=== PATIENT | male | born 1945 | race Caucasian/White ===

== ENCOUNTER 2017-07-25 04:56 | Inpatient (IN) ==
[2017-07-25] MEDS ORDERED: Naloxone 0.4 MG/ML INJ IVP PRN (11:13)
[2017-07-25] MEDS ORDERED: 0.9 % Sodium Chloride 1,000 ML IVC SCH (11:15)
[2017-07-25] MEDS ORDERED: Ondansetron 4 MG/2 ML VIAL IVP PRN (11:20)
--- NOTE | 2017-07-25 11:32 | Internal Med History&Physical ---
Date of Encounter: 07/25/17 Time of Encounter: 11:26 Internal Medicine - H&P: HPI Chief complaint: Abdominal pain Admitted From: Intrahospital Transfer Plans for Post Hospital Care: Home History of present illness: Mr. Barton is a 72 year old male with history of COPD, remote a smoker for 40 years one half pack per day but quit in 2003 was transferred from [facility] for further evaluation of small bowel obstruction . As per patient he is started right lower abdomen pain afternoon yesterday after mowing the grass and over time that progressed to left lower quadrant and then upper abdomen to the chest last evening around 5:00 and patient thought it will go away but eventually it got worse rating 10 x 10 associated with nausea therefore decided to go to [place] [facility]. In the ER CT abdomen done with finding of mechanical small bowel obstruction with mesenteric/intestinal hernia. EKG was also done with [address] segment depression in inferior lead in V4 to 6 but negative troponin. Therefore [place] [facility] physician talked to on-call surgeon Dr. Stevens at [facility] who accepted the patient but advised to get admitted under hospitalist service. During my interview patient rating his abdominal pain 5 x 5 associated with nausea with no vomiting, no flatus but lots of burping. Patient had 2 episodes of diarrhea day before yesterday but since then no bowel movement. Patient denies fever, chills, headache, dizziness, chest pain, shortness of breath, cough, palpitation. Slight Decreased urine output noticed. Past Med Surg Social Fam HX - Past Medical History Medical history: COPD Psychiatric history: no psych history - Past Surgical History Surgical History: no surgical history - Social History Smoking Status: Former smoker Smokeless Tobacco Status: No Alcohol use: none Drug use: none - Family History Mother Living Status: Age at : 69 Cause of : BONE CANCER Hx Family Cardiac Disorders: No Hx Family Respiratory Disorders: No Hx Family Cancer: Yes (MOTHER WITH ABDOMINAL MASS CANCEROUS, METS TO BONE) Hx Family GI Disorders: Yes Hx Family Endocrine Disorder: No Hx Family Medical Disorders: Yes Internal Medicine - H&P: Meds Fluticasone/Salmeterol [Advair 500-50 Diskus] 1 each IH Q12H 02/23/17 [History] Saw [place] Fruit [Saw [place]] 450 mg PO DAILY 02/23/17 [History] Albuterol Sulfate [Albuterol Inhaler] 2 puff IH Q6HR PRN 07/25/17 [History] 3 Allergy/AdvReac Type Severity Reaction Status Date / Time No Known Allergies Allergy Verified 07/25/17 00:26 All Systems PM: except as documented above in the HPI. - Constitutional Vitals: Temp Pulse Resp BP Pulse Ox 98.6 F 74 16 129/68 95 07/25/17 11:16 07/25/17 11:16 07/25/17 11:16 07/25/17 11:16 07/25/17 11:16 Exam: General appearance: Mild distress due to pain,, A&O X 3, obese Head exam: Atraumatic Eye exam: EOMI, PERRLA ENT exam: Dry oral mucosa Neck nontender, supple Respiratory exam: Clear to auscultation bilaterally Cardiovascular exam: Regular rate and rhythm, no systolic murmur Abdominal exam: Soft, tender lower abdomen, mild distended, no bowel sounds Extremities exam: No calf tenderness, no pedal edema Present: Skin-no rash, warm, dry, intact Neurological exam: Alert, awake, oriented 3, CN II-XII intact, no focal deficits. No facial droop. Normal speech. Normal gait. - Assessment and plan (1) Small bowel obstruction Current Visit: No Status: Acute Assessment and plan: Mechanical bowel obstruction with mesenteric versus intestinal hernia on CT scan. No bowel sounds present. Lactate acid normal done in outside facility. Conservative management keep patient nothing by mouth, IV fluid normal saline 125 mL per hour, strict I&O's, antiemetic, IV pain medicine fentanyl as morphine and Dilaudid running short in supply. The neurosurgeon Dr. Stevens already accepted the patient and I informed him again. NG tube is planned. Patient has 2 failed attempt of NG tube placement at [place] [facility] and patient had nosebleed. CBC, CMP, lipase, lactate amylase, urine analysis, stool occult ordered. Will review the imaging of CT scan done outside the facility. (2) Chest pain Current Visit: Yes Status: Resolved Assessment and plan: Patient had atypical chest pain started after abdominal pain. It is less likely cardiac but Slight ST depression in inferior leads on EKG though troponin negative no active chest pain at this time. Patient also had lots of burping and acid reflux and he thought contributing chest pain. Will keep patient in telemetry, serial cardiac enzyme monitoring repeat EKG for now. If any concern about cardiac related etiology then will start baby aspirin if okay with surgeon otherwise avoid any blood thinner as there could be possibility of surgery due to present complaint. Fasting lipid profile, nitroglycerin, oxygen when necessary ordered Qualifiers: Chest pain type: unspecified Qualified Code(s): R07.9 - Chest pain, unspecified (3) COPD (chronic obstructive pulmonary disease) Current Visit: Yes Status: Chronic Assessment and plan: Patient is not on acute exacerbation. Is stable. Continue home medicine. Qualifiers: COPD type: unspecified COPD Qualified Code(s): J44.9 - Chronic obstructive pulmonary disease, unspecified (4) DVT prophylaxis Current Visit: Yes Status: Acute Assessment and plan: SCDs. - Time Spent With Patient Total time spent is greater than 50% in coordination of care (as documented) at patient's floor/unit and/or counseling patient: 25 - 35 minutes
[2017-07-25] MEDS ORDERED: *HR* FentaNYL (PF) 100 MCG/2 ML VIAL IVP PRN (11:33)
[2017-07-25 11:51] LABS: Basophils % 0.2 %; Hematocrit 45.4 % (37.5-50.1); Hemoglobin 15.7 g/dL (12.9-16.9); Immature Granulocytes % 0.3 % (0-4); Lymphocytes # 1.2 K/mcL (0.6-4.6); Lymphocytes % 8.1 %; Mean Corpuscular HGB Conc 34.6 g/dL (31.6-35.5); Mean Corpuscular Hemoglobin 31.7 pg (28.0-33.3); Mean Corpuscular Volume 91.7 fL (83.0-100.0); Mean Platelet Volume 8.8 fL (9.4-12.4); Monocytes # 0.7 K/mcL (0.0-1.3); Monocytes % 4.8 %; Neutrophils # 12.6 K/mcL (1.6-8.9); Platelet Count 254 K/mcL (140-400); Red Blood Count 4.95 M/mcL (4.19-5.50); Red Cell Distribution Width 13.2 % (11.5-14.5); Segmented Neutrophils % 86.6 %
[2017-07-25 12:00] LABS: INR 1.1
[2017-07-25 12:02] LABS: Activated Partial Thrombo Time 28.2 Seconds (26.0-36.0)
[2017-07-25 12:13] LABS: Alanine Aminotransferase 15 Units/L (7-52); Albumin 4.3 g/dL (3.5-5.7); Albumin/Globulin Ratio 1.7 (1.1-2.2); Alkaline Phosphatase 73 Units/L (34-104); Amylase 37 Units/L (29-103); Aspartate Amino Transferase 14 Units/L (13-39); BUN/Creatinine Ratio 16 (6-26); Bilirubin,Total 0.9 mg/dL (0.3-1.0); Blood Urea Nitrogen 13 mg/dL (8-23); Calcium 9.7 mg/dL (8.6-10.3); Carbon Dioxide 29 mEq/L (23-29); Chloride 101 mEq/L (98-107); Globulin 2.5 g/dL (2.4-3.5); Glucose 136 mg/dL (70-105); Lipase 8 Units/L (11-82); Osmolality,Calculated 286 (280-300); Sodium 137 mEq/L (136-145); Total Protein 6.8 g/dL (6.4-8.9); eGFR For African Americans > 60 (> 60); eGFR For Non-African Americans > 60 (> 60)
[2017-07-25] MEDS ORDERED: Lidocaine Jelly 6ml 1 APPL/6 ML JEL.PF.APP MM ONE (12:58)
[2017-07-25] MEDS: 0.9 % Sodium Chloride 1,000 ML IVC SCH ×2 (13:09→21:07)
[2017-07-25] MEDS: Pantoprazole 40 MG VIAL IVP SCH (13:10)
--- NOTE | 2017-07-25 13:58 | General Surgery Consult Note ---
<Ruel Gray - Last Filed: 07/25/17 13:49> Date of Encounter: 07/25/17 Time of Encounter: 13:00 Assessment and Plan (1) Small bowel obstruction Current Visit: Yes Status: Acute DDx: Mechanical SBO (internal hernia vs. mass effect) vs. Ileus. PUD also in consideration though less likely cause of acute state. Pancreatitis unlikely given negative enzymes. Exam relatively benign given suspicion of small bowel obstruction. Did have CT done at [place] [facility] which was interpreted as "mechanical small bowel obstruction with transition point in the LUQ". WBC ct 14.6k predominately neutrophils. Coags wnl. BMP unremarkable. LFTs normal. Lactate 1.0. Troponin <0.03. Amylase/Lipase are not elevated. NG tube was placed liberating about 800 mL of gastric contents within a few minutes. Patient cited significant relief within minutes of placement of NG tube. Did have colonoscopy in 02/2017 with two cecal polyps removed; path report states "tubular adenoma". Plan: - NPO with G.I. decompression and bowel rest - placed NG tube with low-pressure wall suction - IVF are hydration in the meantime - patient may have sparing ice chips in the meantime - continue IV PPI, PRN IV antiemetic, and PRN pain management - consideration of SB follow through vs. bowel prep in next 2-3 days - serial abdominal exams (2) COPD (chronic obstructive pulmonary disease) Current Visit: Yes Status: Chronic Not dependent on O2 at home. No symptoms/signs of acute exacerbation. Mgmt per hospitalist team. Qualifiers: COPD type: unspecified COPD Qualified Code(s): J44.9 - Chronic obstructive pulmonary disease, unspecified (3) Chest pain Current Visit: Yes Status: Resolved management per hospitalist team; initial troponin negative. Qualifiers: Chest pain type: unspecified Qualified Code(s): R07.9 - Chest pain, unspecified (4) DVT prophylaxis Current Visit: Yes Status: Acute Mechanical History of Present Illness Consult date: 07/24/17 (Dr. Marla Stevens) Reason for consult: abdominal pain Requesting physician: Jessica Guzman History of present illness: This is a 72-year-old male with history of COPD (not O2 dependent), remote history of smoking 40 pack years (quit in 2003), and undifferentiated chronic abdominal pain "for 30 years". Patient states usually has general vague right lower quadrant pain that he has not had any specific workup for. Over the last 24 to 48 hours, patient states pain has become more severe and has changed to a more anterior position. Pain is constant without any further radiation or migration, feels sharp/bloated, and has no specific provoking factors. Pt states was relieved with pain medication given in [place] [facility]. Patient also states he has had nausea without any vomiting, denies any flatus, but does note significant amount of belching. Did have brief episode of diarrhea prior to initial presentation to [place] emergency department. No BMs since. Patient denies any fevers, chills, sweats, lightheadedness, headaches, chest pain, palpitations, shortness of breath, cough, dysuria, or hematuria. Past Med Surg Social Fam HX - Past Medical History Attestation: Yes The following information was validated with the patient. Source: patient Medical history: COPD Psychiatric history: no psych history - Past Surgical History Surgical History: no surgical history - Social History Smoking Status: Former smoker (40 pack your history quit in 2003) Smokeless Tobacco Status: No Alcohol use: none Drug use: none - Family History Mother Living Status: Age at : 69 Cause of : BONE CANCER Hx Family Cardiac Disorders: No Hx Family Respiratory Disorders: No Hx Family Cancer: Yes (MOTHER WITH ABDOMINAL MASS CANCEROUS, METS TO BONE) Hx Family GI Disorders: Yes Hx Family Endocrine Disorder: No Hx Family Medical Disorders: Yes Medications and Allergies Fluticasone/Salmeterol [Advair 500-50 Diskus] 1 puff IH Q12H 02/23/17 [History] Saw [place] Fruit [Saw [place]] 450 mg PO DAILY 02/23/17 [History] Albuterol Sulfate [Albuterol Inhaler] 2 puff IH Q6HR PRN 07/25/17 [History] Aspirin [Lo-Dose Aspirin EC] 81 mg PO DAILY 07/25/17 [History] 3 Allergy/AdvReac Type Severity Reaction Status Date / Time No Known Allergies Allergy Verified 07/25/17 00:26 Review of Systems All systems PM: reviewed and no additional remarkable complaints except as stated All systems PM: The remainder of the systems were reviewed and are negative General Surgery Exam Initial Vital Signs Temp Pulse Resp BP Pulse Ox 98.2 F 92 16 145/82 93 07/25/17 08:16 07/25/17 08:16 07/25/17 08:16 07/25/17 08:16 07/25/17 08:16 VITAL SIGNS: Reviewed. See [facility] GENERAL: well-nourished gentleman appears comfortably supine in bed, conversational and cooperative, AOX3 HEENT: Normocephalic, PER, EOMi, oropharynx pink/moist, NG tube in place in right nare, no JVD noted CV: b/l rad pulses 2+, RRR, no murmurs or gallops, no JVD RESPIRATORY: CTAB without wheezes, rales, or rhonchi ABD: soft, tender to palpation over RUQ/RLQ, guarding to same quadrants, no distention/rigidity, no peritoneal signs EXTREMITY: grossly normal motor function, no pedal edema NEUROLOGIC EXAM: AOx3, obeys commands, no speech deficits PSYCHIATRIC: normal mood and affect SKIN: no gross lesions, rashes, or skin changes Exam Initial Vital Signs Temp Pulse Resp BP Pulse Ox 98.2 F 92 16 145/82 93 07/25/17 08:16 07/25/17 08:16 07/25/17 08:16 07/25/17 08:16 07/25/17 08:16 Results - Labs 07/25/17 11:39 07/25/17 11:39 Abnormal lab results WBC 14.5 K/mcL (4.3-11.1) H 07/25/17 11:39 MPV 8.8 fL (9.4-12.4) L 07/25/17 11:39 Neutrophils # 12.6 K/mcL (1.6-8.9) H 07/25/17 11:39 Glucose 136 mg/dL (70-105) H 07/25/17 11:39 Lipase 8 Units/L (11-82) L 07/25/17 11:39 Diabetes panel 07/25/17 Range/Units 11:39 Sodium 137 (136-145) mEq/L Potassium 4.0 (3.5-5.1) mEq/L Chloride 101 (98-107) mEq/L Carbon Dioxide 29 (23-29) mEq/L BUN 13 (8-23) mg/dL Creatinine 0.80 (0.70-1.30) mg/dL Glucose 136 H (70-105) mg/dL Calcium 9.7 (8.6-10.3) mg/dL AST 14 (13-39) Units/L ALT 15 (7-52) Units/L Alkaline Phosphatase 73 (34-104) Units/L Albumin 4.3 (3.5-5.7) g/dL Calcium panel 07/25/17 Range/Units 11:39 Calcium 9.7 (8.6-10.3) mg/dL Albumin 4.3 (3.5-5.7) g/dL Pituitary panel 07/25/17 Range/Units 11:39 Sodium 137 (136-145) mEq/L Potassium 4.0 (3.5-5.1) mEq/L Chloride 101 (98-107) mEq/L Carbon Dioxide 29 (23-29) mEq/L BUN 13 (8-23) mg/dL Creatinine 0.80 (0.70-1.30) mg/dL Glucose 136 H (70-105) mg/dL Calcium 9.7 (8.6-10.3) mg/dL Adrenal panel 07/25/17 Range/Units 11:39 Sodium 137 (136-145) mEq/L Potassium 4.0 (3.5-5.1) mEq/L Chloride 101 (98-107) mEq/L Carbon Dioxide 29 (23-29) mEq/L BUN 13 (8-23) mg/dL Creatinine 0.80 (0.70-1.30) mg/dL Glucose 136 H (70-105) mg/dL Calcium 9.7 (8.6-10.3) mg/dL Total Bilirubin 0.9 (0.3-1.0) mg/dL AST 14 (13-39) Units/L ALT 15 (7-52) Units/L Alkaline Phosphatase 73 (34-104) Units/L Albumin 4.3 (3.5-5.7) g/dL All other labs normal. Consult Discharge Plan - Plan Referrals: Jarek Jain MD [Primary Care Provider] - <Mihai Stevens - Last Filed: 07/26/17 16:11> Date of Encounter: 07/25/17 Review of Systems All systems PM: The remainder of the systems were reviewed and are negative General Surgery Exam Initial Vital Signs Temp Pulse Resp BP Pulse Ox 98.2 F 92 16 145/82 93 07/25/17 08:16 05/07/18 08:16 07/25/17 08:16 07/25/17 08:16 07/25/17 08:16 Exam Initial Vital Signs Temp Pulse Resp BP Pulse Ox 98.2 F 92 16 145/82 93 07/25/17 08:16 07/25/17 08:16 07/25/17 08:16 07/25/17 08:16 07/25/17 08:16 Results - Labs 07/26/17 00:39 07/26/17 00:39 Abnormal lab results WBC 12.6 K/mcL (4.3-11.1) H 07/26/17 00:39 MPV 8.9 fL (9.4-12.4) L 07/26/17 00:39 Neutrophils # 10.2 K/mcL (1.6-8.9) H 07/26/17 00:39 Glucose 118 mg/dL (70-105) H 07/26/17 00:39 HDL Cholesterol 35 mg/dL (40-59) L 07/26/17 00:39 Lipase 8 Units/L (11-82) L 07/25/17 11:39 Ur Specific [place] > 1.030 (1.010-1.025) H 07/26/17 04:30 Urine Glucose (UA) 100 mg/dL (Normal) H 07/26/17 04:30 Urine Ketones 15 mg/dL (Negative) H 07/26/17 04:30 Urine Bilirubin Small (Negative) H 07/26/17 04:30 Urine Microscopic RBC 5-15 per hpf (0-3) H 07/26/17 04:30 Urine Microscopic WBC 3-5 per hpf (0-3) H 07/26/17 04:30 Ur Squamous Epith Cells Many per lpf (None-Few) H 07/26/17 04:30 Diabetes panel 07/26/17 07/26/17 Range/Units 00:39 00:39 Sodium 138 (136-145) mEq/L Potassium 3.8 (3.5-5.1) mEq/L Chloride 104 (98-107) mEq/L Carbon Dioxide 27 (23-29) mEq/L BUN 14 (8-23) mg/dL Creatinine 0.79 (0.70-1.30) mg/dL Glucose 118 H (70-105) mg/dL Calcium 9.1 (8.6-10.3) mg/dL Triglycerides 94 (< 150) mg/dL HDL Cholesterol 35 L (40-59) mg/dL Calcium panel 07/26/17 Range/Units 00:39 Calcium 9.1 (8.6-10.3) mg/dL Pituitary panel 07/26/17 Range/Units 00:39 Sodium 138 (136-145) mEq/L Potassium 3.8 (3.5-5.1) mEq/L Chloride 104 (98-107) mEq/L Carbon Dioxide 27 (23-29) mEq/L BUN 14 (8-23) mg/dL Creatinine 0.79 (0.70-1.30) mg/dL Glucose 118 H (70-105) mg/dL Calcium 9.1 (8.6-10.3) mg/dL Adrenal panel 07/26/17 Range/Units 00:39 Sodium 138 (136-145) mEq/L Potassium 3.8 (3.5-5.1) mEq/L Chloride 104 (98-107) mEq/L Carbon Dioxide 27 (23-29) mEq/L BUN 14 (8-23) mg/dL Creatinine 0.79 (0.70-1.30) mg/dL Glucose 118 H (70-105) mg/dL Calcium 9.1 (8.6-10.3) mg/dL All other labs normal. - Attending Attestation I examined this patient and my medical decision-making was reviewed with the Resident Physician. I agree with the documented findings, disposition and treatment plan as described except to the extent set forth below. I personally reviewed the assessment and evaluation and agree with the above plan. Noted abdominal distension with some abdominal pain. Patient presented to [place] [facility] and was subsequently transferred to [facility]. Noted tympany and some pain on palpation. Mild elevated WBC. Will ask for placement of NGT for decompression-this will be done to see if there is any fluid within the bowel and how much. Serial abdominal exam. To consider continued NGT decompression vs possible SBFT if he improves or plateaus.
[2017-07-25] MEDS: Budesonide/Formoterol 160/4.5 MDI IH SCH ×2 (18:35→20:28)
[2017-07-25] MEDS ORDERED: Chloraseptic Spray 177 ML BOTTLE MM PRN (18:45)
[2017-07-26 01:00] LABS: Basophils # 0.1 K/mcL (0.0-0.2); Basophils % 0.4 %; Eosinophils % 0.3 %; Hematocrit 43.3 % (37.5-50.1); Hemoglobin 14.4 g/dL (12.9-16.9); Immature Granulocytes % 0.6 % (0-4); Lymphocytes # 1.5 K/mcL (0.6-4.6); Lymphocytes % 11.6 %; Mean Corpuscular HGB Conc 33.3 g/dL (31.6-35.5); Mean Corpuscular Hemoglobin 30.6 pg (28.0-33.3); Mean Corpuscular Volume 91.9 fL (83.0-100.0); Mean Platelet Volume 8.9 fL (9.4-12.4); Monocytes # 0.8 K/mcL (0.0-1.3); Monocytes % 6.4 %; Neutrophils # 10.2 K/mcL (1.6-8.9); Platelet Count 235 K/mcL (140-400); Red Blood Count 4.71 M/mcL (4.19-5.50); Red Cell Distribution Width 13.3 % (11.5-14.5); Segmented Neutrophils % 80.7 %
[2017-07-26 01:18] LABS: Chol/HDL Ratio 3.8 (0-4.9)
[2017-07-26 01:19] LABS: BUN/Creatinine Ratio 18 (6-26); Blood Urea Nitrogen 14 mg/dL (8-23); Calcium 9.1 mg/dL (8.6-10.3); Carbon Dioxide 27 mEq/L (23-29); Chloride 104 mEq/L (98-107); Glucose 118 mg/dL (70-105); Osmolality,Calculated 288 (280-300); Potassium 3.8 mEq/L (3.5-5.1); Sodium 138 mEq/L (136-145); eGFR For African Americans > 60 (> 60); eGFR For Non-African Americans > 60 (> 60)
[2017-07-26 04:45] LABS: Bilirubin,Urine Small (Negative); Blood,Urine Negative (Negative); Clarity,Urine Clear (Clear); Color,Urine Dark Yellow (Yellow); Glucose,Urine (UA) 100 mg/dL (Normal); Ketones,Urine 15 mg/dL (Negative); Leukocyte Esterase,Urine Negative (Negative); Nitrite,Urine Negative (Negative); Protein,Urine Trace mg/dL (Neg-Trace); Specific Gravity,Urine > 1.030 (1.010-1.025); Urobilinogen,Urine Normal (Normal)
[2017-07-26 04:47] LABS: Bacteria,Urine None Seen per hpf (None-Few); Hyaline Casts,Urine Few per lpf (None-Few); Squamous Epithelial Cell,Urine Many per lpf (None-Few)
[2017-07-26] MEDS: 0.9 % Sodium Chloride 1,000 ML IVC SCH ×2 (04:55→17:46)
--- NOTE | 2017-07-26 06:26 | General Surgery Progress Note ---
<Ruel Gray - Last Filed: 07/26/17 14:42> Date of Encounter: 07/26/17 Time of Encounter: 06:23 - Assessment and Plan (1) Small bowel obstruction Current Visit: Yes Status: Suspected DDx: Mechanical SBO (internal hernia vs. mass effect) vs. Ileus. PUD also in consideration though less likely cause of acute state. Pancreatitis unlikely given negative enzymes. Exam relatively benign given suspicion of small bowel obstruction. Did have CT done at [place] [facility] which was interpreted as "mechanical small bowel obstruction with transition point in the LUQ". NG tube was placed liberating about 800 mL of gastric contents within a few minutes. Patient cited significant relief within minutes of placement of NG tube. Did have colonoscopy in 02/2017 with two cecal polyps removed; path report states "tubular adenoma". Plan: - Cont NPO with G.I. decompression and bowel rest - placed NG tube with low-pressure wall suction; about 1.3L liberated on 07/25/17 - cont IVF throughout NPO status - patient may have sparing ice chips in the meantime - continue IV PPI, PRN IV antiemetic, and PRN pain management - consideration of SB follow-through vs. bowel prep in next 2-3 days - serial abdominal exams - CBC qAM; 12.6k today down from 14.5k - BMP qAM to monitor for lyte imbalances; correct as needed (2) COPD (chronic obstructive pulmonary disease) Current Visit: Yes Status: Chronic Not dependent on O2 at home. No symptoms/signs of acute exacerbation. Mgmt per hospitalist team. Qualifiers: COPD type: unspecified COPD Qualified Code(s): J44.9 - Chronic obstructive pulmonary disease, unspecified (3) Chest pain Current Visit: Yes Status: Resolved management per hospitalist team; initial troponin negative. Qualifiers: Chest pain type: unspecified Qualified Code(s): R07.9 - Chest pain, unspecified (4) DVT prophylaxis Current Visit: Yes Status: Acute Mechanical Subjective Narrative: Afebrile overnight. Pain is minimal. Patient NPO on low-pressure wall suction NG tube; 1.3 L liberated on 07/25/2017. Patient reports plentiful belching. Patient has not as of yet had any bowel movements nor any flatus. Patient denies nausea, vomiting, shortness of breath, chest pain, worsening abdominal pain, diarrhea, or constipation. Patient has no present concerns. Objective Vital Signs - Last 8 Hours Temp Pulse Resp BP Pulse Ox 07/26/17 00:00 98.3 F 97 16 126/71 94 Intake and Output 07/25/17 07/25/17 07/26/17 15:59 23:59 07:59 Intake Total 1000 / 1000 1000 / 1000 Output Total 1625 / 1625 100 / 100 Balance -625 / -625 900 / 900 Intake: IV Fluids 1000 / 1000 1000 / 1000 0.9 % Sodium Chloride 1,000 ML 1000 / 1000 1000 / 1000 @ 125 mls/hr IVC .Q8H TERESA Rx#: [id number] Oral 0 / 0 0 / 0 Output: Urine 275 / 275 0 / 0 Gastric Drainage 1350 / 1350 100 / 100 Other: Meal Dinner Percent of Meal Consumed 0% Weight 83 kg 81.9 kg Blood Glucose* 99 106 Patient Weight 07/26/17 23:59 Weight 81.9 kg VITAL SIGNS: Reviewed. See [facility] GENERAL: restfully supine, NG tube in place on low pressure wall suction, conversational and cooperative. HEENT: [Normocephalic, PER, EOMi, oropharynx pink/moist, no JVD noted. CV: b/l rad pulses 2+, RRR, no murmurs or gallops, no JVD RESPIRATORY: CTAB without wheezes, rales, or rhonchi ABD: soft, non-tender, no rebound/guarding/rigidity, no peritoneal signs EXTREMITY: grossly normal motor function, no pedal edema, peripheral pulses 2+ b /l NEUROLOGIC EXAM: AOx3, obeys commands, no speech deficits. PSYCHIATRIC: normal mood and affect SKIN: no gross lesions, rashes, or skin changes - Labs 07/26/17 00:39 07/26/17 00:39 Diabetes panel 07/25/17 07/26/17 07/26/17 Range/Units 11:39 00:39 00:39 Sodium 137 138 (136-145) mEq/L Potassium 4.0 3.8 (3.5-5.1) mEq/L Chloride 101 104 (98-107) mEq/L Carbon Dioxide 29 27 (23-29) mEq/L BUN 13 14 (8-23) mg/dL Creatinine 0.80 0.79 (0.70-1.30) mg/dL Glucose 136 H 118 H (70-105) mg/dL Calcium 9.7 9.1 (8.6-10.3) mg/dL AST 14 (13-39) Units/L ALT 15 (7-52) Units/L Alkaline Phosphatase 73 (34-104) Units/L Albumin 4.3 (3.5-5.7) g/dL Triglycerides 94 (< 150) mg/dL HDL Cholesterol 35 L (40-59) mg/dL Calcium panel 07/25/17 07/26/17 Range/Units 11:39 00:39 Calcium 9.7 9.1 (8.6-10.3) mg/dL Albumin 4.3 (3.5-5.7) g/dL Pituitary panel 07/25/17 07/26/17 Range/Units 11:39 00:39 Sodium 137 138 (136-145) mEq/L Potassium 4.0 3.8 (3.5-5.1) mEq/L Chloride 101 104 (98-107) mEq/L Carbon Dioxide 29 27 (23-29) mEq/L BUN 13 14 (8-23) mg/dL Creatinine 0.80 0.79 (0.70-1.30) mg/dL Glucose 136 H 118 H (70-105) mg/dL Calcium 9.7 9.1 (8.6-10.3) mg/dL Adrenal panel 07/25/17 07/26/17 Range/Units 11:39 00:39 Sodium 137 138 (136-145) mEq/L Potassium 4.0 3.8 (3.5-5.1) mEq/L Chloride 101 104 (98-107) mEq/L Carbon Dioxide 29 27 (23-29) mEq/L BUN 13 14 (8-23) mg/dL Creatinine 0.80 0.79 (0.70-1.30) mg/dL Glucose 136 H 118 H (70-105) mg/dL Calcium 9.7 9.1 (8.6-10.3) mg/dL Total Bilirubin 0.9 (0.3-1.0) mg/dL AST 14 (13-39) Units/L ALT 15 (7-52) Units/L Alkaline Phosphatase 73 (34-104) Units/L Albumin 4.3 (3.5-5.7) g/dL Consult Discharge Plan - Plan Referrals: Jarek Jain MD [Primary Care Provider] - <Mihai Stevens M - Last Filed: 07/26/17 16:13> Date of Encounter: 07/26/17 Objective Vital Signs - Last 8 Hours Temp Pulse Resp BP Pulse Ox 07/26/17 16:00 97.8 F 73 15 145/82 93 07/26/17 11:37 97.8 F 78 15 141/69 94 07/26/17 10:38 18 92 Intake and Output 07/26/17 07/26/17 07/26/17 07:59 15:59 23:59 Intake Total 1000 / 1000 0 / 0 0 / 0 Output Total 250 / 250 525 / 525 100 / 100 Balance 750 / 750 -525 / -525 -100 / -100 Intake: IV Fluids 1000 / 1000 0.9 % Sodium Chloride 1,000 ML 1000 / 1000 @ 125 mls/hr IVC .Q8H TERESA Rx#: [id number] Oral 0 / 0 0 / 0 0 / 0 Output: Urine 150 / 150 300 / 300 100 / 100 Gastric Drainage 100 / 100 225 / 225 Other: Meal Lunch Percent of Meal Consumed 0% Weight 81.9 kg Blood Glucose* 115 98 Patient Weight 07/26/17 23:59 Weight 81.9 kg - Labs 07/26/17 00:39 07/26/17 00:39 Diabetes panel 07/26/17 07/26/17 Range/Units 00:39 00:39 Sodium 138 (136-145) mEq/L Potassium 3.8 (3.5-5.1) mEq/L Chloride 104 (98-107) mEq/L Carbon Dioxide 27 (23-29) mEq/L BUN 14 (8-23) mg/dL Creatinine 0.79 (0.70-1.30) mg/dL Glucose 118 H (70-105) mg/dL Calcium 9.1 (8.6-10.3) mg/dL Triglycerides 94 (< 150) mg/dL HDL Cholesterol 35 L (40-59) mg/dL Calcium panel 07/26/17 Range/Units 00:39 Calcium 9.1 (8.6-10.3) mg/dL Pituitary panel 07/26/17 Range/Units 00:39 Sodium 138 (136-145) mEq/L Potassium 3.8 (3.5-5.1) mEq/L Chloride 104 (98-107) mEq/L Carbon Dioxide 27 (23-29) mEq/L BUN 14 (8-23) mg/dL Creatinine 0.79 (0.70-1.30) mg/dL Glucose 118 H (70-105) mg/dL Calcium 9.1 (8.6-10.3) mg/dL Adrenal panel 07/26/17 Range/Units 00:39 Sodium 138 (136-145) mEq/L Potassium 3.8 (3.5-5.1) mEq/L Chloride 104 (98-107) mEq/L Carbon Dioxide 27 (23-29) mEq/L BUN 14 (8-23) mg/dL Creatinine 0.79 (0.70-1.30) mg/dL Glucose 118 H (70-105) mg/dL Calcium 9.1 (8.6-10.3) mg/dL - Attending Attestation I examined this patient and my medical decision-making was reviewed with the Resident Physician. I agree with the documented findings, disposition and treatment plan as described except to the extent set forth below. I reviewed the above assessment and evaluation. Denies any flatus. Mild distension. Mild discomfort on exam. Watch NGT drainage. If he does not improve then he will require an exploration and possible SBR within the next 24hrs.
[2017-07-26] MEDS ORDERED: Pantoprazole 40 MG VIAL IVP SCH (09:00)
--- NOTE | 2017-07-26 09:38 | Internal Med Progress Note ---
<Yrn Lara T - Last Filed: 07/26/17 15:44> Date of Encounter: 07/26/17 - Assessment and plan (1) Small bowel obstruction Current Visit: Yes Status: Suspected (2) COPD (chronic obstructive pulmonary disease) Current Visit: Yes Status: Chronic Qualifiers: COPD type: unspecified COPD Qualified Code(s): J44.9 - Chronic obstructive pulmonary disease, unspecified (3) DVT prophylaxis Current Visit: Yes Status: Acute (4) Chest pain Current Visit: Yes Status: Resolved Qualifiers: Chest pain type: unspecified Qualified Code(s): R07.9 - Chest pain, unspecified - Time Spent With Patient Total time spent is greater than 50% in coordination of care (as documented) at patient's floor/unit and/or counseling patient: - Constitutional Vitals: Temp Pulse Resp BP Pulse Ox 97.8 F 78 15 141/69 94 07/26/17 11:37 07/26/17 11:37 07/26/17 11:37 07/26/17 11:37 07/26/17 11:37 Internal Medicine: Result - Labs CBC & Chem 7: 07/26/17 00:39 07/26/17 00:39 Labs: Short CBC 07/26/17 Range/Units 00:39 WBC 12.6 H (4.3-11.1) K/mcL Hgb 14.4 (12.9-16.9) g/dL Hct 43.3 (37.5-50.1) % Plt Count 235 (140-400) K/mcL Neutrophils # 10.2 H (1.6-8.9) K/mcL BMP 07/26/17 00:39 Sodium 138 Potassium 3.8 Chloride 104 Carbon Dioxide 27 BUN 14 Creatinine 0.79 Glucose 118 H Calcium 9.1 Cardiac Enzymes 07/25/17 07/26/17 Range/Units 17:22 00:39 Troponin I < 0.03 < 0.03 (< 0.04) ng/mL Urine 07/26/17 Range/Units 04:30 Urine Color Dark Yellow (Yellow) Urine Clarity Clear (Clear) Urine pH 6.0 (5.0-8.0) pH Units Ur Specific [place] > 1.030 H (1.010-1.025) Urine Protein Trace (Neg-Trace) mg/dL Urine Glucose (UA) 100 H (Normal) mg/dL - ABG Interpretation ABG results: PT/INR, D-dimer PT 12.0 Seconds (9.4-12.1) 07/25/17 11:39 - Impressions Impressions Echocardiogram 07/25/17 11:48 Impressions: LVEF 60-65%. Mild left ventricular diastolic dysfunction. Normal right ventricular structure and function. No significant valvular dysfunction. No pulmonary hypertension. Left Ventricular Wall Motion: Rest Echo Findings All wall segments showed normal motion. Findings: Study Quality * Technically adequate exam. ECG Findings * Normal sinus rhythm. Left Ventricle * LVEF 60-65%. * Normal LV chamber size, wall thickness and function. * Mild left ventricular diastolic dysfunction. Right Ventricle * Normal right ventricular structure and function. Left Atrium * Normal left atrial size. Right Atrium * Normal right atrial size. Aortic Valve * No aortic regurgitation. * Trileaflet aortic valve. * No aortic stenosis. Mitral Valve * No mitral regurgitation. * Normal mitral valve structure. * No mitral stenosis. Tricuspid Valve * Trace tricuspid regurgitation. * Normal tricuspid valve structure. * Estimated RA pressure is 3 mmHg. * Estimated RVSP is 32 mmHg. * No pulmonary hypertension. Pulmonic Valve * Pulmonic valve is not well visualized. * No pulmonic stenosis. * No pulmonic regurgitation. Pulmonary Artery * Pulmonary artery not well visualized. Aorta * Normally sized aortic root. Pericardium * There is no pericardial effusion present. Interatrial Septum * No evidence of PFO by color Doppler. IVC * Normal IVC dimensions and inspiratory collapse. KUB X-Ray 07/25/17 13:29 IMPRESSION: Nasogastric tube in appropriate position. Findings concerning for small bowel obstruction. D/ / 07/25/2017 21:25:14 Balta Gates MD / juan Interpreting Provider: Balta Gates MD Consult Discharge Plan - Plan Referrals: Jarek Jain MD [Primary Care Provider] - - Attending Attestation I examined this patient and my medical decision-making was reviewed with the Resident Physician on 07/26/17. I agree with the documented findings, disposition and treatment plan as described except to the extent set forth below. 72 M with no prior abdominal surgeries who is admitted and being managed for small bowel obstruction, suspected to be mechanica. His PMH is significant for COPD He reports some relief in abdominal pain, no nausea or vomiting. NO flatus or BM since arrival Output from NG tube ~1500 at time of review His abdomen exam is non-acute, bowel sounds are present. L>R. Chest exam is clear, HS S1, S2only, no m/g/r. Labs and Imaging reviewed : CBC and Chem unremarkable. ECHO with no WMA, normal EF. Abd Xray showed SBO A/P: SBO. Electrolytes stable, abdomen not acute, surgery is following, continue conservative management. Chest pain is not ischemic, continue PPI Rest of details as in the resident physician's documentation <Jose Roberto Ku - Last Filed: 07/26/17 16:24> Date of Encounter: 07/26/17 Time of Encounter: 08:20 - Assessment and plan (1) Small bowel obstruction Current Visit: Yes Status: Suspected Assessment and plan: Mechanical bowel obstruction with mesenteric versus intestinal hernia on CT scan. Conservative management keep patient nothing by mouth, IV fluid normal saline 125 mL per hour, strict I&O's, antiemetic Surgery is on board and will follow (2) COPD (chronic obstructive pulmonary disease) Current Visit: Yes Status: Chronic Assessment and plan: Stable without acute exacerbation There is minimal wheezes on exam, but patient feels as though this is his normal Continue home regimen Qualifiers: Qualified Code(s): J44.9 - Chronic obstructive pulmonary disease, unspecified (3) Chest pain Current Visit: Yes Status: Resolved Assessment and plan: Atypical chest pain, described as burning sensation in epigastric region Questionable ST-T wave changes in several EKG leads, but no obvious elevations Troponins negativex3, Pain has largely resolved Echocardiogram shows grossly normal anatomy and LV function The patient should follow-up with primary care, may be candidate for stress test Qualifiers: Qualified Code(s): R07.9 - Chest pain, unspecified (4) DVT prophylaxis Current Visit: Yes Status: Acute Assessment and plan: SCDs. - Time Spent With Patient Total time spent is greater than 50% in coordination of care (as documented) at patient's floor/unit and/or counseling patient: - Subjective Interval history: The patient is resting comfortably in bed at time of examination. He says that he is feeling significantly better than he was previously, and that the pressure in his abdomen has resolved greatly. He had 1.4L of fluid per NG over 24h. - Constitutional Vitals: Temp Pulse Resp BP Pulse Ox 97.8 F 81 15 140/78 92 07/26/17 06:54 07/26/17 06:54 07/26/17 06:54 07/26/17 06:54 07/26/17 06:54 Exam: Gen: Vitals noted. No acute distress. NG tube in place HEENT: PERRL/EOMI, oropharynx clear, Normocephalic, atraumatic. NG tube in place with normal appearing surrounding tissue. Neck: Supple. No adenopathy. Cardiac: RRR, no murmur, +S1/S2 Pulmonary: Mild wheezes throughout with prolonged expiratory phase Abdomen: generally soft, minimal tenderness to palpation, bowel sounds present but minimal MSK: ROM intact, no joint swelling noted Extremities: no BLE edema, nontender calf, no cyanosis or clubbing Neuro: A&Ox3, moves all extremities, no focal deficits Psych: Appropriate mood and behavior Internal Medicine: Result - Labs CBC & Chem 7: 07/26/17 00:39 07/26/17 00:39 Labs: Short CBC 07/25/17 07/26/17 Range/Units 11:39 00:39 WBC 14.5 H 12.6 H (4.3-11.1) K/mcL Hgb 15.7 14.4 (12.9-16.9) g/dL Hct 45.4 43.3 (37.5-50.1) % Plt Count 254 235 (140-400) K/mcL Neutrophils # 12.6 H 10.2 H (1.6-8.9) K/mcL BMP 07/25/17 07/26/17 11:39 00:39 Sodium 137 138 Potassium 4.0 3.8 Chloride 101 104 Carbon Dioxide 29 27 BUN 13 14 Creatinine 0.80 0.79 Glucose 136 H 118 H Calcium 9.7 9.1 Cardiac Enzymes 07/25/17 07/25/17 07/26/17 Range/Units 11:39 17:22 00:39 Troponin I < 0.03 < 0.03 < 0.03 (< 0.04) ng/mL Liver Function 07/25/17 Range/Units 11:39 Total Bilirubin 0.9 (0.3-1.0) mg/dL AST 14 (13-39) Units/L ALT 15 (7-52) Units/L Alkaline Phosphatase 73 (34-104) Units/L Albumin 4.3 (3.5-5.7) g/dL Urine 07/26/17 Range/Units 04:30 Urine Color Dark Yellow (Yellow) Urine Clarity Clear (Clear) Urine pH 6.0 (5.0-8.0) pH Units Ur Specific [place] > 1.030 H (1.010-1.025) Urine Protein Trace (Neg-Trace) mg/dL Urine Glucose (UA) 100 H (Normal) mg/dL - ABG Interpretation ABG results: PT/INR, D-dimer PT 12.0 Seconds (9.4-12.1) 07/25/17 11:39 - Impressions Impressions KUB X-Ray 07/25/17 13:29 IMPRESSION: Nasogastric tube in appropriate position. Findings concerning for small bowel obstruction. D/ / 07/25/2017 21:25:14 Balta Gates MD / [email or web address] Interpreting Provider: Balta Gates MD
[2017-07-26] MEDS: Budesonide/Formoterol 160/4.5 MDI IH SCH ×2 (10:36→20:31)
[2017-07-26] MEDS: Pantoprazole 40 MG VIAL IVP SCH (10:46)
[2017-07-26] MEDS ORDERED: MORPHINE SUL Oral CONC 10 MG/0.5 ML ORAL.SYG SL PRN (15:29)
--- NOTE | 2017-07-26 16:28 | Electrocardiograph Report ---
[place] [id number] Test Date: 2017-07-25 Pat Name: Sam Barton Department: 111 Room: 2NE19 Gender: M Prior Authorization Technician: : [id number] Requested By: Jessica Guzman Order Number: [id number] Reading MD: Goldie Kruger Measurements Intervals Shirley Rate: 75 P: 71 OR: 158 QRS: 67 QRSD: 104 T: 63 QT: 360 QTc: 390 Interpretive Statements SINUS RHYTHM ARTIFACT Electronically Signed On 07-26-2017 16:26:33 EDT by Goldie Kruger
[2017-07-27] MEDS: 0.9 % Sodium Chloride 1,000 ML IVC SCH ×2 (04:51→09:59)
[2017-07-27 05:32] LABS: Basophils % 0.3 %; Eosinophils % 0.4 %; Hematocrit 42.8 % (37.5-50.1); Hemoglobin 14.1 g/dL (12.9-16.9); Immature Granulocytes % 0.4 % (0-4); Lymphocytes # 1.1 K/mcL (0.6-4.6); Lymphocytes % 11.4 %; Mean Corpuscular HGB Conc 32.9 g/dL (31.6-35.5); Mean Corpuscular Hemoglobin 30.7 pg (28.0-33.3); Mean Platelet Volume 9.1 fL (9.4-12.4); Monocytes # 0.9 K/mcL (0.0-1.3); Monocytes % 8.7 %; Neutrophils # 7.8 K/mcL (1.6-8.9); Platelet Count 229 K/mcL (140-400); Red Cell Distribution Width 13.2 % (11.5-14.5); Segmented Neutrophils % 78.8 %
[2017-07-27 05:58] LABS: BUN/Creatinine Ratio 22 (6-26); Blood Urea Nitrogen 16 mg/dL (8-23); Calcium 8.6 mg/dL (8.6-10.3); Carbon Dioxide 27 mEq/L (23-29); Chloride 106 mEq/L (98-107); Glucose 115 mg/dL (70-105); Osmolality,Calculated 288 (280-300); Potassium 3.8 mEq/L (3.5-5.1); Sodium 138 mEq/L (136-145); eGFR For African Americans > 60 (> 60); eGFR For Non-African Americans > 60 (> 60)
--- NOTE | 2017-07-27 07:39 | General Surgery Progress Note ---
Date of Encounter: 07/27/17 Time of Encounter: 07:37 - Assessment and Plan (1) Small bowel obstruction Current Visit: Yes Status: Suspected I explained to the patient that I personally reviewed the x-ray images from this morning which shows continued dilation of the small bowel. Even though the NG tube had minimal output is still somewhat distended. He has not progressed and I explained to the patient that it is appropriate to go ahead and proceed with an exploration this afternoon. If necessary we will also perform a small bowel resection. Risk and benefits discussed with the patient and he agrees with the above plan. Subjective Patient reports: no new complaints (Patient has minimal pain. No nausea. No flatus and no BM) Objective Vital Signs - Last 8 Hours Temp Pulse Resp BP Pulse Ox 07/27/17 07:04 98.2 F 82 16 147/88 94 07/27/17 05:00 97.9 F 72 16 151/89 97 07/27/17 00:00 98.1 F 75 14 137/69 96 Intake and Output 07/26/17 07/26/17 07/27/17 15:59 23:59 07:59 Intake Total 1000 / 1000 0 / 0 1000 / 1000 Output Total 525 / 525 650 / 650 370 / 370 Balance 475 / 475 -650 / -650 630 / 630 Intake: IV Fluids 1000 / 1000 1000 / 1000 0.9 % Sodium Chloride 1,000 ML 1000 / 1000 1000 / 1000 @ 125 mls/hr IVC .Q8H [facility] Rx#: [id number] Oral 0 / 0 0 / 0 0 / 0 Output: Urine 300 / 300 300 / 300 350 / 350 Gastric Tube Lavage Amount 175 / 175 Right Nare 175 / 175 Gastric Drainage 225 / 225 175 / 175 20 / 20 Other: Meal Lunch Dinner Percent of Meal Consumed 0% 0% Weight 82.4 kg Blood Glucose* 98 120 109 Patient Weight 07/27/17 23:59 Weight 82.4 kg - General physical appearance well nourished, no distress - Abdomen Abdomen: Present: soft, non tender (no pain to palpation.), distended (Noted tympany.) - Labs 07/27/17 05:06 07/27/17 05:06 Diabetes panel 07/27/17 Range/Units 05:06 Sodium 138 (136-145) mEq/L Potassium 3.8 (3.5-5.1) mEq/L Chloride 106 (98-107) mEq/L Carbon Dioxide 27 (23-29) mEq/L BUN 16 (8-23) mg/dL Creatinine 0.74 (0.70-1.30) mg/dL Glucose 115 H (70-105) mg/dL Calcium 8.6 (8.6-10.3) mg/dL Calcium panel 07/27/17 Range/Units 05:06 Calcium 8.6 (8.6-10.3) mg/dL Pituitary panel 07/27/17 Range/Units 05:06 Sodium 138 (136-145) mEq/L Potassium 3.8 (3.5-5.1) mEq/L Chloride 106 (98-107) mEq/L Carbon Dioxide 27 (23-29) mEq/L BUN 16 (8-23) mg/dL Creatinine 0.74 (0.70-1.30) mg/dL Glucose 115 H (70-105) mg/dL Calcium 8.6 (8.6-10.3) mg/dL Adrenal panel 07/27/17 Range/Units 05:06 Sodium 138 (136-145) mEq/L Potassium 3.8 (3.5-5.1) mEq/L Chloride 106 (98-107) mEq/L Carbon Dioxide 27 (23-29) mEq/L BUN 16 (8-23) mg/dL Creatinine 0.74 (0.70-1.30) mg/dL Glucose 115 H (70-105) mg/dL Calcium 8.6 (8.6-10.3) mg/dL - VTE Documentation of Mechanical Device: Intermittent pneumatic compression device Consult Discharge Plan - Plan Referrals: Jarek Jain MD [Primary Care Provider] -
[2017-07-27] MEDS: Budesonide/Formoterol 160/4.5 MDI IH SCH ×2 (07:45→22:20)
[2017-07-27] MEDS: Pantoprazole 40 MG VIAL IVP SCH (09:50)
[2017-07-27] MEDS ORDERED: OXYCODONE Oral CONC 10 MG/0.5 ML ORAL.SYG SL PRN (14:18)
--- NOTE | 2017-07-27 14:27 | Internal Med Progress Note ---
<Jose Roberto Ku - Last Filed: 07/27/17 16:29> Date of Encounter: 07/27/17 Time of Encounter: 08:45 - Assessment and plan (1) Small bowel obstruction Current Visit: Yes Status: Suspected Assessment and plan: Mechanical bowel obstruction with mesenteric versus intestinal hernia on CT scan. Failed conservative management, general surgery plans for exploratory laparoscopy today We will keep NPO with Suction per NG (2) COPD (chronic obstructive pulmonary disease) Current Visit: Yes Status: Chronic Assessment and plan: Stable without acute exacerbation There is minimal wheezes on exam, but patient feels as though this is his normal Continue home regimen Qualifiers: COPD type: unspecified COPD Qualified Code(s): J44.9 - Chronic obstructive pulmonary disease, unspecified (3) DVT prophylaxis Current Visit: Yes Status: Acute Assessment and plan: SCDs. (4) Chest pain Current Visit: Yes Status: Resolved Assessment and plan: Atypical chest pain, described as burning sensation in epigastric region Questionable ST-T wave changes in several EKG leads, but no obvious elevations Troponins negativex3, Pain has largely resolved Echocardiogram shows grossly normal anatomy and LV function The patient should follow-up with primary care, may be candidate for stress test Qualifiers: Chest pain type: unspecified Qualified Code(s): R07.9 - Chest pain, unspecified - Time Spent With Patient Total time spent is greater than 50% in coordination of care (as documented) at patient's floor/unit and/or counseling patient: - Subjective Interval history: The patient is seen and examined at bedside. He is having more pain and discomfort today than he was yesterday in the morning. He had a repeat KUB later in the afternoon which demonstrated no resolution of obstruction. Surgery intends to do an exlap today. - Constitutional Vitals: Temp Pulse Resp BP Pulse Ox 98 F 73 16 154/85 94 07/27/17 11:28 07/27/17 11:28 07/27/17 11:28 07/27/17 11:28 07/27/17 11:28 Exam: Gen: Vitals noted. Mild distress. NG tube in place HEENT: PERRL/EOMI, oropharynx clear, Normocephalic, atraumatic. NG tube in place with normal appearing surrounding tissue. Neck: Supple. No adenopathy. Cardiac: RRR, no murmur, +S1/S2 Pulmonary: Mild wheezes throughout with prolonged expiratory phase Abdomen: moderate distension, some tenderness to palpation, bowel sounds present but minimal MSK: ROM intact, no joint swelling noted Extremities: no BLE edema, nontender calf, no cyanosis or clubbing Neuro: A&Ox3, moves all extremities, no focal deficits Psych: Appropriate mood and behavior Internal Medicine: Result - Labs CBC & Chem 7: 07/27/17 05:06 07/27/17 05:06 Labs: Short CBC 07/27/17 Range/Units 05:06 WBC 9.9 (4.3-11.1) K/mcL Hgb 14.1 (12.9-16.9) g/dL Hct 42.8 (37.5-50.1) % Plt Count 229 (140-400) K/mcL Neutrophils # 7.8 (1.6-8.9) K/mcL BMP 07/27/17 05:06 Sodium 138 Potassium 3.8 Chloride 106 Carbon Dioxide 27 BUN 16 Creatinine 0.74 Glucose 115 H Calcium 8.6 - ABG Interpretation ABG results: PT/INR, D-dimer PT 12.0 Seconds (9.4-12.1) 07/25/17 11:39 - Impressions Impressions Chest/Abdomen X-ray 07/27/17 06:00 IMPRESSION: 1. Enteric tube with the tip and side port projecting in the region the gastric fundus. 2. Dilated air-filled loops of small bowel throughout the abdomen compatible with a small bowel obstruction. 3. No acute cardiopulmonary abnormality identified. D/ / Medhat Shaw MD / Medhat Shaw MD Interpreting Provider: Medhat Shaw MD - VTE Documentation of Mechanical Device: Intermittent pneumatic compression device Consult Discharge Plan - Plan Referrals: Jarek Jain MD [Primary Care Provider] - <Yrn Lara T - Last Filed: 07/27/17 16:45> Date of Encounter: 07/27/17 - Assessment and plan (1) Small bowel obstruction Current Visit: Yes Status: Suspected (2) COPD (chronic obstructive pulmonary disease) Current Visit: Yes Status: Chronic Qualifiers: COPD type: unspecified COPD Qualified Code(s): J44.9 - Chronic obstructive pulmonary disease, unspecified (3) DVT prophylaxis Current Visit: Yes Status: Acute (4) Chest pain Current Visit: Yes Status: Resolved Qualifiers: Chest pain type: unspecified Qualified Code(s): R07.9 - Chest pain, unspecified - Time Spent With Patient Total time spent is greater than 50% in coordination of care (as documented) at patient's floor/unit and/or counseling patient: - Constitutional Vitals: Temp Pulse Resp BP Pulse Ox 98.6 F 72 16 136/81 97 07/27/17 15:23 07/27/17 15:23 07/27/17 15:23 07/27/17 15:23 07/27/17 15:23 Internal Medicine: Result - Labs CBC & Chem 7: 07/27/17 05:06 07/27/17 05:06 Labs: Short CBC 07/27/17 Range/Units 05:06 WBC 9.9 (4.3-11.1) K/mcL Hgb 14.1 (12.9-16.9) g/dL Hct 42.8 (37.5-50.1) % Plt Count 229 (140-400) K/mcL Neutrophils # 7.8 (1.6-8.9) K/mcL BMP 07/27/17 05:06 Sodium 138 Potassium 3.8 Chloride 106 Carbon Dioxide 27 BUN 16 Creatinine 0.74 Glucose 115 H Calcium 8.6 - ABG Interpretation ABG results: PT/INR, D-dimer PT 12.0 Seconds (9.4-12.1) 07/25/17 11:39 - Impressions Impressions Chest/Abdomen X-ray 07/27/17 06:00 IMPRESSION: 1. Enteric tube with the tip and side port projecting in the region the gastric fundus. 2. Dilated air-filled loops of small bowel throughout the abdomen compatible with a small bowel obstruction. 3. No acute cardiopulmonary abnormality identified. D/ / Medhat Shaw MD / Medhat Shaw MD Interpreting Provider: Medhat Shaw MD - Attending Attestation I examined this patient and my medical decision-making was reviewed with the Resident Physician on 07/27/17. I agree with the documented findings, disposition and treatment plan as described except to the extent set forth below. 72 M with no prior abdominal surgeries who is admitted and being managed for mechanical small bowel obstruction He reports some relief in abdominal pain, no nausea or vomiting. NO flatus or BM since arrival Repeat KUB shows failure of conservative measure of management His abdomen exam is non-acute, bowel sounds are present. L>R. Chest exam is clear, HS S1, S2only, no m/g/r. Labs and Imaging reviewed A/P: SBO. For ex lap today by surgery Chest pain was non-ischemic, low risk for surgery Rest of details as in the resident physician's documentation
[2017-07-27] MEDS ORDERED: CefOXitin 1,000 MG VIAL ONE (16:40)
[2017-07-27] MEDS ORDERED: *HR* Propofol 200 MG/20 ML VIAL IVP ONE (18:00)
[2017-07-27] MEDS ORDERED: *HR* FentaNYL (PF) 100 MCG/2 ML VIAL ONE ×2 (18:00→18:53)
[2017-07-27] MEDS ORDERED: *HR* Succinylcholine 200 MG/10 ML VIAL IVP ONE (18:03)
[2017-07-27] MEDS ORDERED: *HR* Rocuronium Bromide 50 MG/5 ML VIAL ONE (18:03)
[2017-07-27] MEDS ORDERED: Lidocaine -MPF 2% 2 ML VIAL ONE (18:03)
[2017-07-27] MEDS ORDERED: Lidocaine -MPF 4% 5 ML AMPUL ONE (18:04)
[2017-07-27] MEDS ORDERED: Famotidine 20 MG/2 ML VIAL IVP ONE (18:08)
[2017-07-27] MEDS ORDERED: Acetaminophen IV 1,000 MG/100 ML INFUS..BTL IVPB ONE (18:08)
[2017-07-27] MEDS ORDERED: Albuterol 2.5 MG/3 ML NEBULIZER IH ONE (18:08)
[2017-07-27] MEDS ORDERED: Albuterol 2.5 MG/3 ML NEBULIZER ONE (18:10)
--- NOTE | 2017-07-27 18:11 | Anesthesia Evaluation PreOp ---
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 Other Medical History: Denies Any Significant HX Anesthesia History: No Prior Anesthetic Complications Alcohol Use: none Drug use: none Medications and Allergies Fluticasone/Salmeterol [Advair 500-50 Diskus] 1 puff IH Q12H 02/23/17 [History] Saw [place] Fruit [Saw [place]] 450 mg PO DAILY 02/23/17 [History] Albuterol Sulfate [Albuterol Inhaler] 2 puff IH Q6HR PRN 07/25/17 [History] Aspirin [Lo-Dose Aspirin EC] 81 mg PO DAILY 07/25/17 [History] 3 Allergy/AdvReac Type Severity Reaction Status Date / Time No Known Allergies Allergy Verified 07/25/17 00:26 - Meds/Allergy Pre-op Review Medications Reviewed: Yes Allergies Reviewed: Yes Beta Blockers on Current Med List: No Anesthesia Results - Labs 07/27/17 05:06 07/27/17 05:06 Laboratory Tests 07/27/17 07/27/17 05:06 05:06 Hgb 14.1 Hct 42.8 Plt Count 229 Sodium 138 Potassium 3.8 BUN 16 Creatinine 0.74 - Imaging EKG: report reviewed (R occ PVC) Anesthesia Exam O2 Sat Weight 82.4 kg Weight 82.4 kg O2 Sat by Pulse Oximetry 97 O2 Sat by Pulse Oximetry 94 O2 Sat by Pulse Oximetry 94 O2 Sat by Pulse Oximetry 94 O2 Sat by Pulse Oximetry 97 O2 Sat by Pulse Oximetry 96 O2 Sat by Pulse Oximetry 97 O2 Sat by Pulse Oximetry 97 Vital Signs Temp Pulse Resp BP Pulse Ox 98.2 F 92 16 145/82 93 07/25/17 08:16 07/25/17 08:16 07/25/17 08:16 07/25/17 08:16 07/25/17 08:16 Height: 5'10 Weight: 181 lb s NPO (# of Hours): MN Pain Scale: 0 - HEENT Pupil (Motor): Pupils equal, EOMI Mallampati: III Teeth: Normal Oral Opening: Greater than 3 - MINGLER OPERATOR LOC: Oriented MINGLER OPERATOR Motor: Normal RUE, Normal LUE, Normal RLE, Normal LLE, Normal Face MINGLER OPERATOR Sensory: Normal: RUE, LUE, RLE, LLE, Face - Cardiac Rhythm: Regular Murmur: None JVD: No Carotid Bruit: No - Pulmonary Breath Sounds: bilateral Clear Respiratory Effort: Symmetrical Anesthesia Assess/Plan ASA Score: 3 (COPD) Modified [place] Scale for Level of Consciousness: Cooperative, oriented, and tranquil Anesthetic Plan: General Monitoring Plan: Standard Monitors Recovery Plan: PACU (Discussed GA, agrees to proceed)
[2017-07-27] MEDS ORDERED: Famotidine 20 MG/2 ML VIAL ONE (18:17)
[2017-07-27] MEDS ORDERED: Acetaminophen IV 1,000 MG/100 ML INFUS..BTL ONE (18:17)
[2017-07-27] MEDS ORDERED: *HR* Phenylephrine 10 MG/ML VIAL ONE (18:35)
[2017-07-27] MEDS ORDERED: CefOXitin 2,000 MG VIAL ONE (18:53)
[2017-07-27] MEDS ORDERED: cefOXitin 2,000 MG in Water for inj. (sterile) 20 ML 10 ML IVP ONE (18:58)
[2017-07-27] MEDS ORDERED: Dexamethasone 4 MG/ML VIAL ONE (19:01)
[2017-07-27] MEDS ORDERED: Ondansetron 4 MG/2 ML VIAL ONE (19:01)
[2017-07-27] MEDS ORDERED: Neostigmine Methylsulfate 3 MG/3 ML SYRINGE ONE (19:05)
[2017-07-27] MEDS ORDERED: SUGAMMADEX SODIUM 500 MG/5 ML VIAL IV ONE (19:07)
[2017-07-27] MEDS ORDERED: EPHEDrine 50 MG/ML VIAL ONE (19:14)
--- NOTE | 2017-07-27 19:17 | Operative Note ---
Date of procedure: 07/27/17 Pre-op diagnosis: Small bowel obstruction Post-op diagnosis: same Procedure: 1. Exploratory celiotomy Anesthesia: JESÚS Surgeon: Mihai Stevens Was there an assistant to the vice president present: Yes Candle Wrapper: Almita Duggan Candle Wrapper Other: IMANI Roy Estimated blood loss (cc): 2 Specimen: none Condition: stable Disposition: PACU Procedure in Detail: Date of surgery: 07/27/17 After properly identifying the patient, the patient was brought to the operating room and placed in the supine position. After proper IV sedation was achieved followed by general endotracheal intubation, the patient's abdomen was prepped and draped in normal sterile fashion. A timeout was performed noting the patient's name and type of procedure to be performed. A 15 blade scalpel was used to make an incision from the umbilicus superiorly along the midline. Bovie cauterization was used to dissected the subcutaneous tissue to the abdominal wall fascia was encountered and incised along the length of the incision. Of note the patient did have an umbilical hernia defect that was noted as well. Once the abdomen was entered a Joselo wound protector was placed within the abdomen to protect the subcutaneous tissue. The omentum was retracted and the small bowel was extruded through the opening. The small bowel was dilated and the small bowel was run from proximal to distal. During evaluation of the small bowel distally an area or transition zone was immediately noted. There was a mild indentation along the serosa surface of the small bowel on consistent with a "kink" of the small bowel. Distal to this "kink" the small bowel was normal in caliber. This was consistent with a transition zone. There is no evidence of an adhesion or mass effect. The small bowel was run entirely from the ligament of Treitz to the terminal ileum at the level of the cecum and again the mass effects were identified and no evidence of significant stenosis. There was no evidence of a mass effect along the colon as well. The decision was then made to place the small bowel back within the abdomen and cover this region with omentum. Seprafilm was placed within the abdomen and the abdominal wall fascia was reapproximated with a running looped PDS suture 2. The subcutaneous tissue was reapproximated with 2-0 Vicryl sutures and the epidermal and dermal layers were reapproximated with ranjeet. Needle, sponge, and instrument counts were correct 2 and the incision was covered with 4 x 4 gauze. The patient was aroused from IV sedation, extubated in the operating room without complication, and transported to the recovery room in stable condition.
[2017-07-27] MEDS ORDERED: Ondansetron 4 MG/2 ML VIAL IVP ONE (19:23)
[2017-07-27] MEDS: *HR* Morphine 2 MG/ML SYRINGE IVP PRN ×5 (19:45→20:20)
--- NOTE | 2017-07-27 19:49 | Anesthesia Evaluation Post Op ---
Date of Encounter: 07/27/17 Time of Encounter: 20:00 - Vital Signs Vital Signs: Vital Signs/O2 Sat/Glucose, Most Current Temp Pulse Resp BP Pulse Ox 07/27/17 19:31 87 20 150/80 98 07/27/17 19:21 97.2 F L 66 16 146/85 100 - Lungs Lungs: Clear Ascult./Percussion - Airway Airway: Non-obstructed - Cardiovascular Regular Rate - Mental Status Mental Status: Alert & Oriented, Answers Appropriately - Nausea Vomiting Nausea Vomiting: Not Present - Hydration Hydration: Ice chips - Discharge PostOp Status: Transfer Patient to floor
[2017-07-27] MEDS: *HR* HYDROmorphone 2 MG/ML SYRINGE IVP PRN ×3 (20:43→20:57)
[2017-07-28 06:00] LABS: Hematocrit 40.8 % (37.5-50.1); Hemoglobin 13.2 g/dL (12.9-16.9); Immature Platelets 2.3 % (1.1-6.1); Mean Corpuscular HGB Conc 32.4 g/dL (31.6-35.5); Mean Corpuscular Hemoglobin 30.3 pg (28.0-33.3); Mean Corpuscular Volume 93.6 fL (83.0-100.0); Mean Platelet Volume 9.3 fL (9.4-12.4); Platelet Count 229 K/mcL (140-400); Red Blood Count 4.36 M/mcL (4.19-5.50); Red Cell Distribution Width 13.3 % (11.5-14.5)
[2017-07-28 06:24] LABS: BUN/Creatinine Ratio 26 (6-26); Blood Urea Nitrogen 16 mg/dL (8-23); Carbon Dioxide 21 mEq/L (23-29); Chloride 108 mEq/L (98-107); Glucose 130 mg/dL (70-105); Osmolality,Calculated 293 (280-300); Sodium 140 mEq/L (136-145); eGFR For African Americans > 60 (> 60); eGFR For Non-African Americans > 60 (> 60)
[2017-07-28] MEDS: 0.9 % Sodium Chloride 1,000 ML IVC SCH ×4 (06:45→23:55)
[2017-07-28 07:08] LABS: Monocytes # 0.7 K/mcL (0.0-1.3); Neutrophils # 6.9 K/mcL (1.6-8.9)
[2017-07-28 07:09] LABS: Platelet Estimate Normal (Normal)
[2017-07-28] MEDS ORDERED: Naloxone 0.4 MG/ML INJ IVP PRN (07:23)
[2017-07-28] MEDS ORDERED: MORPHINE SUL Oral CONC 10 MG/0.5 ML ORAL.SYG SL PRN (07:23)
[2017-07-28] MEDS ORDERED: Ondansetron 4 MG/2 ML VIAL IVP PRN (07:23)
[2017-07-28] MEDS ORDERED: Acetaminophen IV 1,000 MG/100 ML INFUS..BTL IVPB ONE (07:23)
[2017-07-28] MEDS ORDERED: Chloraseptic Spray 177 ML BOTTLE MM PRN (07:23)
[2017-07-28] MEDS: Budesonide/Formoterol 160/4.5 MDI IH SCH ×2 (07:36→19:34)
--- NOTE | 2017-07-28 07:38 | Internal Med Progress Note ---
<Jose Roberto Ku - Last Filed: 07/28/17 14:40> Date of Encounter: 07/28/17 Time of Encounter: 07:36 - Assessment and plan (1) Small bowel obstruction Current Visit: Yes Status: Acute Assessment and plan: Mechanical bowel obstruction with mesenteric versus intestinal hernia on CT scan. Failed conservative management, general surgery plans for exploratory laparoscopy today We will keep NPO with Suction per NG Update 07/28 Patient was taken to the OR by surgery yesterday Underwent exploratory celiotomy This morning patient does present with bandemia (20%), likely reactive Management per surgery (2) COPD (chronic obstructive pulmonary disease) Current Visit: Yes Status: Chronic Assessment and plan: Stable without acute exacerbation There is minimal wheezes on exam, but patient feels as though this is his normal Continue home regimen Qualifiers: COPD type: unspecified COPD Qualified Code(s): J44.9 - Chronic obstructive pulmonary disease, unspecified (3) Chest pain Current Visit: Yes Status: Resolved Assessment and plan: Atypical chest pain, described as burning sensation in epigastric region Questionable ST-T wave changes in several EKG leads, but no obvious elevations Troponins negativex3, Pain has largely resolved Echocardiogram shows grossly normal anatomy and LV function The patient should follow-up with primary care, may be candidate for stress test Qualifiers: Chest pain type: unspecified Qualified Code(s): R07.9 - Chest pain, unspecified (4) DVT prophylaxis Current Visit: Yes Status: Acute Assessment and plan: SCDs. (5) Hypertension Current Visit: Yes Status: Acute Assessment and plan: Blood pressure has been slightly elevated above goal It's possible that this is related to pain from surgical incision/SBO Patient agrees to take toradol for pain, we will monitor BP Possibly add BP med later Qualifiers: Hypertension type: unspecified Qualified Code(s): I10 - Essential (primary ) hypertension - Time Spent With Patient Total time spent is greater than 50% in coordination of care (as documented) at patient's floor/unit and/or counseling patient: - Subjective Interval history: The patient is seen and examined at bedside. He had exploratory celiotomy yesterday and his obstruction was reportedly corrected without tissue removal. He says that he is in some pain today (09/27) but he does not want to become a "pill junkie", and was initially refusing all pain medication. He does, however , say that his pain is no longer localized to his lower quadrants, and that the pain is more associated with his incision site. - Constitutional Vitals: Temp Pulse Resp BP Pulse Ox 98.3 F 94 15 156/85 90 07/28/17 06:58 07/28/17 06:58 07/28/17 06:58 07/28/17 06:58 07/28/17 06:58 Exam: Gen: Vitals noted. Mild distress. NG tube in place HEENT: PERRL/EOMI, oropharynx clear, Normocephalic, atraumatic. NG tube in place with normal appearing surrounding tissue. Neck: Supple. No adenopathy. Cardiac: RRR, no murmur, +S1/S2 Pulmonary: Mild wheezes throughout with prolonged expiratory phase Abdomen: moderate distension, some tenderness to palpation, bowel sounds present but minimal. There is a midline incision that is dressed without obvious drainage MSK: ROM intact, no joint swelling noted Extremities: no BLE edema, nontender calf, no cyanosis or clubbing Neuro: A&Ox3, moves all extremities, no focal deficits Psych: Appropriate mood and behavior Internal Medicine: Result - Labs CBC & Chem 7: 07/28/17 03:26 07/28/17 03:26 Labs: Short CBC 07/28/17 Range/Units 03:26 WBC 8.7 (4.3-11.1) K/mcL Hgb 13.2 (12.9-16.9) g/dL Hct 40.8 (37.5-50.1) % Plt Count 229 (140-400) K/mcL Neutrophils # 6.9 (1.6-8.9) K/mcL BMP 07/28/17 03:26 Sodium 140 Potassium 4.0 Chloride 108 H Carbon Dioxide 21 L BUN 16 Creatinine 0.62 L Glucose 130 H Calcium 8.0 L - ABG Interpretation ABG results: PT/INR, D-dimer PT 12.0 Seconds (9.4-12.1) 07/25/17 11:39 - VTE Documentation of Mechanical Device: Intermittent pneumatic compression device Consult Discharge Plan - Plan Referrals: Jarek Jain MD [Primary Care Provider] - 08/03/17 2:45 pm <Yrn Lara - Last Filed: 07/28/17 16:52> Date of Encounter: 07/28/17 - Assessment and plan (1) Small bowel obstruction Current Visit: Yes Status: Acute (2) COPD (chronic obstructive pulmonary disease) Current Visit: Yes Status: Chronic Qualifiers: COPD type: unspecified COPD Qualified Code(s): J44.9 - Chronic obstructive pulmonary disease, unspecified (3) DVT prophylaxis Current Visit: Yes Status: Acute (4) Chest pain Current Visit: Yes Status: Resolved Qualifiers: Chest pain type: unspecified Qualified Code(s): R07.9 - Chest pain, unspecified (5) Hypertension Current Visit: Yes Status: Acute Qualifiers: Hypertension type: unspecified Qualified Code(s): I10 - Essential (primary ) hypertension - Time Spent With Patient Total time spent is greater than 50% in coordination of care (as documented) at patient's floor/unit and/or counseling patient: - Constitutional Vitals: Temp Pulse Resp BP Pulse Ox 99.4 F 95 15 147/92 90 07/28/17 14:28 07/28/17 14:28 07/28/17 14:28 07/28/17 14:28 07/28/17 14:28 Internal Medicine: Result - Labs CBC & Chem 7: 07/28/17 03:26 07/28/17 03:26 Labs: Short CBC 07/28/17 Range/Units 03:26 WBC 8.7 (4.3-11.1) K/mcL Hgb 13.2 (12.9-16.9) g/dL Hct 40.8 (37.5-50.1) % Plt Count 229 (140-400) K/mcL Neutrophils # 6.9 (1.6-8.9) K/mcL BMP 07/28/17 03:26 Sodium 140 Potassium 4.0 Chloride 108 H Carbon Dioxide 21 L BUN 16 Creatinine 0.62 L Glucose 130 H Calcium 8.0 L - ABG Interpretation ABG results: PT/INR, D-dimer PT 12.0 Seconds (9.4-12.1) 07/25/17 11:39 - Attending Attestation I examined this patient and my medical decision-making was reviewed with the Resident Physician on 07/28/17. I agree with the documented findings, disposition and treatment plan as described except to the extent set forth below.
[2017-07-28] MEDS: Ketorolac 30 MG/ML VIAL IVP SCH ×3 (08:23→18:29)
[2017-07-28] MEDS: Pantoprazole 40 MG VIAL IVP SCH (08:24)
[2017-07-28] MEDS: *HR* Heparin 5,000 UNIT/ML VIAL SQ SCH ×2 (08:24→18:19)
--- NOTE | 2017-07-28 11:59 | General Surgery Progress Note ---
<Ruel Gray - Last Filed: 07/28/17 14:22> Date of Encounter: 07/28/17 Time of Encounter: 10:00 - Assessment and Plan (1) Small bowel obstruction Current Visit: Yes Status: Acute Mechanical SBO without mass or adhesion. Patient is not been passing gas are having any problems, however, does have normoactive bowel sounds and no ongoing discomfort carlos to presenting complaint. Does have some expected post op discomfort has not require opioid analgesia; has taken Toradol once so far. Plan: - POD#1 s/p ex-celiotomy relieving SBO - NG to gravity suction & limited clear liquids (</= 300mL q8hrs) - CBC qAM - BMP qAM to monitor for lyte imbalances; correct as needed (3) COPD (chronic obstructive pulmonary disease) Current Visit: Yes Status: Chronic Not dependent on O2 at home. No symptoms/signs of acute exacerbation. Mgmt per hospitalist team. Qualifiers: COPD type: unspecified COPD Qualified Code(s): J44.9 - Chronic obstructive pulmonary disease, unspecified (4) Chest pain Current Visit: Yes Status: Resolved Negative biomarkers with resolved pain; unlikely ACS -- monitoring per hospitalist team. Qualifiers: Chest pain type: unspecified Qualified Code(s): R07.9 - Chest pain, unspecified (5) DVT prophylaxis Current Visit: Yes Status: Acute Mechanical Subjective Narrative: Patient is status post exploratory laparotomy done for small bowel obstruction POD#1. Afebrile overnight. Patient still NPO on low pressure wall suction; scant nasogastric output. Has not passed any bowel movements or flatus as of yet this morning. Overall, patient states initial presenting abdominal burning and right lower quadrant tenderness/pain has resolved. He does have expected postoperative incisional tenderness/pain. Patient is tolerating pain well, refusing opioid analgesics; has used tramadol one time. Patient denies nausea, vomiting, shortness of breath, chest pain, worsening abdominal pain, or bloating. Patient has no present concerns. Objective Vital Signs - Last 8 Hours Temp Pulse Resp BP Pulse Ox 07/28/17 11:00 99.4 F 84 15 140/82 90 07/28/17 06:58 98.3 F 94 15 156/85 90 07/28/17 04:00 98.4 F 89 18 147/97 90 Intake and Output 07/27/17 07/28/17 07/28/17 23:59 07:59 15:59 Intake Total 650 / 650 0 / 0 0 / 0 Output Total 112 / 112 500 / 500 200 / 200 Balance 538 / 538 -500 / -500 -200 / -200 Intake: IV Fluids 650 / 650 0.9 % Sodium Chloride 1,000 ML 650 / 650 @ 125 mls/hr IVC .Q8H [facility] Rx#: [id number] Oral 0 / 0 0 / 0 0 / 0 Output: Urine 100 / 100 500 / 500 200 / 200 Estimated Blood Loss 2 / 2 Gastric Drainage Right Nare Other: Meal Breakfast Percent of Meal Consumed 0% Weight 84.9 kg Blood Glucose* 107 108 102 Patient Weight 07/28/17 23:59 Weight 84.9 kg VITAL SIGNS: Reviewed. See [facility] GENERAL: comfortably supine in bed with NG tube in place on low-pressure wall suction; scant GI contents in reservoir. HEENT: [Normocephalic, PER, EOMi, oropharynx pink/moist, no JVD noted.] CV: b/l rad pulses 2+, RRR, no murmurs or gallops, no JVD RESPIRATORY: CTAB without wheezes, rales, or rhonchi ABD: soft, non-tender, no rebound/guarding/rigidity, no peritoneal signs INCISION: midline incision clean, dry, intact without purulence/bleeding/edema/ rubor/calor or dehiscence EXTREMITY: grossly normal motor function, no pedal edema; SCDs in place NEUROLOGIC EXAM: AOx3, obeys commands, no speech deficits. PSYCHIATRIC: normal mood and affect SKIN: no gross lesions, rashes, or skin changes - Labs 07/28/17 03:26 07/28/17 03:26 Diabetes panel 07/28/17 Range/Units 03:26 Sodium 140 (136-145) mEq/L Potassium 4.0 (3.5-5.1) mEq/L Chloride 108 H (98-107) mEq/L Carbon Dioxide 21 L (23-29) mEq/L BUN 16 (8-23) mg/dL Creatinine 0.62 L (0.70-1.30) mg/dL Glucose 130 H (70-105) mg/dL Calcium 8.0 L (8.6-10.3) mg/dL Calcium panel 07/28/17 Range/Units 03:26 Calcium 8.0 L (8.6-10.3) mg/dL Pituitary panel 07/28/17 Range/Units 03:26 Sodium 140 (136-145) mEq/L Potassium 4.0 (3.5-5.1) mEq/L Chloride 108 H (98-107) mEq/L Carbon Dioxide 21 L (23-29) mEq/L BUN 16 (8-23) mg/dL Creatinine 0.62 L (0.70-1.30) mg/dL Glucose 130 H (70-105) mg/dL Calcium 8.0 L (8.6-10.3) mg/dL Adrenal panel 07/28/17 Range/Units 03:26 Sodium 140 (136-145) mEq/L Potassium 4.0 (3.5-5.1) mEq/L Chloride 108 H (98-107) mEq/L Carbon Dioxide 21 L (23-29) mEq/L BUN 16 (8-23) mg/dL Creatinine 0.62 L (0.70-1.30) mg/dL Glucose 130 H (70-105) mg/dL Calcium 8.0 L (8.6-10.3) mg/dL - VTE Documentation of Mechanical Device: Intermittent pneumatic compression device Consult Discharge Plan - Plan Referrals: Jarek Jain MD [Primary Care Provider] - 08/03/17 2:45 pm <Mihai Stevens - Last Filed: 07/29/17 07:49> Date of Encounter: 07/28/17 Objective Vital Signs - Last 8 Hours Temp Pulse Resp BP Pulse Ox 07/29/17 06:54 98.2 F 87 16 158/91 91 07/29/17 05:40 98.1 F 82 21 136/81 90 Intake and Output 07/28/17 07/28/17 07/29/17 15:59 23:59 07:59 Intake Total 0 / 0 1100 / 1100 275 / 275 Output Total 300 / 300 350 / 350 450 / 450 Balance -300 / -300 750 / 750 -175 / -175 Intake: IV Fluids 1100 / 1100 0.9 % Sodium Chloride 1,000 ML 1000 / 1000 @ 125 mls/hr IVC .Q8H [facility] Rx#: [id number] Ofirmev 1,000 mg/100 ml 1,000 100 / 100 mg In 100 ml @ 400 mls/hr IVPB ONCE ONE Rx#:[id number] Oral 0 / 0 0 / 0 275 / 275 Output: Urine 300 / 300 300 / 300 400 / 400 Gastric Drainage 50 / 50 50 / 50 Other: Meal Lunch Dinner Percent of Meal Consumed 0% 0% Weight 85.6 kg Blood Glucose* 102 97 95 Patient Weight 07/29/17 23:59 Weight 85.6 kg - Labs 07/29/17 05:40 07/29/17 05:40 Diabetes panel 07/29/17 Range/Units 05:40 Sodium 142 (136-145) mEq/L Potassium 3.6 (3.5-5.1) mEq/L Chloride 111 H (98-107) mEq/L Carbon Dioxide 22 L (23-29) mEq/L BUN 17 (8-23) mg/dL Creatinine 0.59 L (0.70-1.30) mg/dL Glucose 96 (70-105) mg/dL Calcium 8.1 L (8.6-10.3) mg/dL Calcium panel 07/29/17 Range/Units 05:40 Calcium 8.1 L (8.6-10.3) mg/dL Pituitary panel 07/29/17 Range/Units 05:40 Sodium 142 (136-145) mEq/L Potassium 3.6 (3.5-5.1) mEq/L Chloride 111 H (98-107) mEq/L Carbon Dioxide 22 L (23-29) mEq/L BUN 17 (8-23) mg/dL Creatinine 0.59 L (0.70-1.30) mg/dL Glucose 96 (70-105) mg/dL Calcium 8.1 L (8.6-10.3) mg/dL Adrenal panel 07/29/17 Range/Units 05:40 Sodium 142 (136-145) mEq/L Potassium 3.6 (3.5-5.1) mEq/L Chloride 111 H (98-107) mEq/L Carbon Dioxide 22 L (23-29) mEq/L BUN 17 (8-23) mg/dL Creatinine 0.59 L (0.70-1.30) mg/dL Glucose 96 (70-105) mg/dL Calcium 8.1 L (8.6-10.3) mg/dL - Attending Attestation I examined this patient and my medical decision-making was reviewed with the Resident Physician. I agree with the documented findings, disposition and treatment plan as described except to the extent set forth below. I reviewed the above assessment and evaluation and agree with the above plan. We will transition the NG tube to gravity Guthrie bag drainage.
[2017-07-29] MEDS: *HR* Heparin 5,000 UNIT/ML VIAL SQ SCH ×2 (06:13→16:21)
--- NOTE | 2017-07-29 06:32 | General Surgery Progress Note ---
Date of Encounter: 07/29/17 Time of Encounter: 06:32 - Assessment and Plan (1) Small bowel obstruction Current Visit: Yes Status: Acute Mechanical SBO without mass or adhesion. Patient is not been passing gas are having any problems, however, does have normoactive bowel sounds and no ongoing discomfort carlos to presenting complaint. Does have some expected post op discomfort has not require opioid analgesia; has taken Toradol once so far. Plan: - POD#1 s/p ex-celiotomy relieving SBO - NG to gravity suction & limited clear liquids (</= 300mL q8hrs) - CBC qAM - BMP qAM to monitor for lyte imbalances; correct as needed (2) COPD (chronic obstructive pulmonary disease) Current Visit: Yes Status: Chronic Not dependent on O2 at home. No symptoms/signs of acute exacerbation. Mgmt per hospitalist team. Qualifiers: COPD type: unspecified COPD Qualified Code(s): J44.9 - Chronic obstructive pulmonary disease, unspecified (3) Chest pain Current Visit: Yes Status: Resolved Negative biomarkers with resolved pain; unlikely ACS -- monitoring per hospitalist team. Qualifiers: Chest pain type: unspecified Qualified Code(s): R07.9 - Chest pain, unspecified (4) DVT prophylaxis Current Visit: Yes Status: Acute Mechanical Objective Vital Signs - Last 8 Hours Temp Pulse Resp BP Pulse Ox 07/29/17 05:40 98.1 F 82 21 136/81 90 07/28/17 23:45 98.8 F 77 18 124/73 Intake and Output 07/28/17 07/28/17 07/29/17 15:59 23:59 07:59 Intake Total 0 / 0 1100 / 1100 275 / 275 Output Total 300 / 300 350 / 350 50 / 50 Balance -300 / -300 750 / 750 225 / 225 Intake: IV Fluids 1100 / 1100 0.9 % Sodium Chloride 1,000 ML 1000 / 1000 @ 125 mls/hr IVC .Q8H [facility] Rx#: [id number] Ofirmev 1,000 mg/100 ml 1,000 100 / 100 mg In 100 ml @ 400 mls/hr IVPB ONCE ONE Rx#:[id number] Oral 0 / 0 0 / 0 275 / 275 Output: Urine 300 / 300 300 / 300 0 / 0 Gastric Drainage 50 / 50 50 / 50 Other: Meal Lunch Dinner Percent of Meal Consumed 0% 0% Weight 85.6 kg Blood Glucose* 102 97 95 Patient Weight 07/29/17 23:59 Weight 85.6 kg - Labs 07/28/17 03:26 07/28/17 03:26 - VTE Documentation of Mechanical Device: Intermittent pneumatic compression device Consult Discharge Plan - Plan Referrals: Jarek Jain MD [Primary Care Provider] - 08/03/17 2:45 pm
[2017-07-29 06:35] LABS: Hemoglobin 13.3 g/dL (12.9-16.9); Mean Corpuscular HGB Conc 32.4 g/dL (31.6-35.5); Mean Corpuscular Hemoglobin 30.4 pg (28.0-33.3); Mean Corpuscular Volume 93.6 fL (83.0-100.0); Mean Platelet Volume 9.2 fL (9.4-12.4); Platelet Count 223 K/mcL (140-400); Red Blood Count 4.38 M/mcL (4.19-5.50); Red Cell Distribution Width 13.2 % (11.5-14.5)
[2017-07-29 06:40] LABS: BUN/Creatinine Ratio 29 (6-26); Blood Urea Nitrogen 17 mg/dL (8-23); Calcium 8.1 mg/dL (8.6-10.3); Carbon Dioxide 22 mEq/L (23-29); Chloride 111 mEq/L (98-107); Glucose 96 mg/dL (70-105); Osmolality,Calculated 295 (280-300); Potassium 3.6 mEq/L (3.5-5.1); Sodium 142 mEq/L (136-145); eGFR For African Americans > 60 (> 60); eGFR For Non-African Americans > 60 (> 60)
--- NOTE | 2017-07-29 07:05 | General Surgery Progress Note ---
<Ruel Gray - Last Filed: 07/29/17 17:54> Date of Encounter: 07/29/17 Time of Encounter: 06:30 - Assessment and Plan (1) Small bowel obstruction Current Visit: Yes Status: Acute Mechanical SBO without mass or adhesion. Patient was converted to minimal clears yesterday and has had PO intake. States is passing gas. Order was placed for patient to be on gravity suction but has actually been functionally clamped overnight as he was still fully connected to the wall. Patient has some bloating abdominal discomfort this morning. Concerned that has surgical site is infected; there are no exam findings consistent with this nor overnight fevers. Spoke with floor this morning to change patient from wall reservoir to a Guthrie bag to ensure proper gravitational pressure. A.m. labs demonstrate no decrease in hemoglobin or recurrent leukocytosis. Plan: - POD#2 s/p ex-celiotomy relieving SBO - NG to gravity suction with Guthrie bag (verified by RN) & limited clear liquids (</= 300mL q8hrs) - CBC qAM - BMP qAM to monitor for lyte imbalances; correct as needed (2) Dysuria Current Visit: Yes Status: Acute Ordered clean catch UA with C&S if indicated for possible UTI; management per hospitalist if positive. (3) COPD (chronic obstructive pulmonary disease) Current Visit: Yes Status: Chronic Not dependent on O2 at home. No symptoms/signs of acute exacerbation. Mgmt per hospitalist team. Qualifiers: COPD type: unspecified COPD Qualified Code(s): J44.9 - Chronic obstructive pulmonary disease, unspecified (4) Chest pain Current Visit: Yes Status: Resolved Negative biomarkers with resolved pain; unlikely ACS -- monitoring per hospitalist team. Qualifiers: Chest pain type: unspecified Qualified Code(s): R07.9 - Chest pain, unspecified (5) DVT prophylaxis Current Visit: Yes Status: Acute Mechanical Subjective Narrative: Patient has been taking clear liquids was sufficiently low-volume per orders. Patient states has had increasing bloating discomfort in his abdomen and is concerned he has a postop infection. Patient also is concerned of new dysuria stating he believes he has a UTI. No bowel movements as of yet. Patient has had flatus overnight. Denies any nausea or vomiting. No fevers overnight. No hematuria. No flank pain. Patient expresses desire to be discharged home today. I explained to him that it would not be optimal to leave the hospital in his current state. Objective Vital Signs - Last 8 Hours Temp Pulse Resp BP Pulse Ox 07/29/17 06:54 98.2 F 87 16 158/91 91 07/29/17 05:40 98.1 F 82 21 136/81 90 07/28/17 23:45 98.8 F 77 18 124/73 Intake and Output 07/28/17 07/28/17 07/29/17 15:59 23:59 07:59 Intake Total 0 / 0 1100 / 1100 275 / 275 Output Total 300 / 300 350 / 350 450 / 450 Balance -300 / -300 750 / 750 -175 / -175 Intake: IV Fluids 1100 / 1100 0.9 % Sodium Chloride 1,000 ML 1000 / 1000 @ 125 mls/hr IVC .Q8H [facility] Rx#: [id number] Ofirmev 1,000 mg/100 ml 1,000 100 / 100 mg In 100 ml @ 400 mls/hr IVPB ONCE ONE Rx#:[id number] Oral 0 / 0 0 / 0 275 / 275 Output: Urine 300 / 300 300 / 300 400 / 400 Gastric Drainage 50 / 50 50 / 50 Other: Meal Lunch Dinner Percent of Meal Consumed 0% 0% Weight 85.6 kg Blood Glucose* 102 97 95 Patient Weight 07/29/17 23:59 Weight 85.6 kg VITAL SIGNS: [facility] GENERAL: uncomfortable and irritated with new bloating discomfort. NG tube fully connected to wall off of suction (functionally clamped). HEENT: Normocephalic, PER, EOMi, oropharynx pink/moist, no JVD noted. CV: b/l rad pulses 2+, RRR, no murmurs or gallops, no JVD RESPIRATORY: CTAB without wheezes, rales, or rhonchi ABD: soft, mildly tender, no rebound/guarding/rigidity, no peritoneal signs INCISION: midline incision clean, dry, intact without purulence/bleeding/edema/ rubor/calor or dehiscence EXTREMITY: grossly normal motor function, no pedal edema; SCDs in place NEUROLOGIC EXAM: AOx3, obeys commands, no speech deficits. PSYCHIATRIC: normal mood and affect SKIN: no gross lesions, rashes, or skin changes - Labs 07/29/17 05:40 07/29/17 05:40 Diabetes panel 07/29/17 Range/Units 05:40 Sodium 142 (136-145) mEq/L Potassium 3.6 (3.5-5.1) mEq/L Chloride 111 H (98-107) mEq/L Carbon Dioxide 22 L (23-29) mEq/L BUN 17 (8-23) mg/dL Creatinine 0.59 L (0.70-1.30) mg/dL Glucose 96 (70-105) mg/dL Calcium 8.1 L (8.6-10.3) mg/dL Calcium panel 07/29/17 Range/Units 05:40 Calcium 8.1 L (8.6-10.3) mg/dL Pituitary panel 07/29/17 Range/Units 05:40 Sodium 142 (136-145) mEq/L Potassium 3.6 (3.5-5.1) mEq/L Chloride 111 H (98-107) mEq/L Carbon Dioxide 22 L (23-29) mEq/L BUN 17 (8-23) mg/dL Creatinine 0.59 L (0.70-1.30) mg/dL Glucose 96 (70-105) mg/dL Calcium 8.1 L (8.6-10.3) mg/dL Adrenal panel 07/29/17 Range/Units 05:40 Sodium 142 (136-145) mEq/L Potassium 3.6 (3.5-5.1) mEq/L Chloride 111 H (98-107) mEq/L Carbon Dioxide 22 L (23-29) mEq/L BUN 17 (8-23) mg/dL Creatinine 0.59 L (0.70-1.30) mg/dL Glucose 96 (70-105) mg/dL Calcium 8.1 L (8.6-10.3) mg/dL - VTE Documentation of Mechanical Device: Intermittent pneumatic compression device Consult Discharge Plan - Plan Referrals: Jarek Jain MD [Primary Care Provider] - 08/03/17 2:45 pm <Mihai Stevens - Last Filed: 08/01/17 07:57> Date of Encounter: 07/29/17 Objective Vital Signs - Last 8 Hours Temp Pulse Resp BP Pulse Ox 08/01/17 07:02 97.8 F 75 16 137/89 93 08/01/17 03:57 98.1 F 87 17 149/78 93 08/01/17 00:41 97.9 F 74 16 165/89 93 Intake and Output 07/31/17 07/31/17 08/01/17 15:59 23:59 07:59 Intake Total 1300 / 1300 0 / 0 1000 / 1000 Output Total 1000 / 1000 225 / 225 Balance 1300 / 1300 -1000 / -1000 775 / 775 Intake: IV Fluids 1300 / 1300 1000 / 1000 0.9 % Sodium Chloride 1,000 ML 1000 / 1000 1000 / 1000 @ 50 mls/hr IVC .Q20H [facility] Rx#: [id number] Potassium Chloride 10 mEq/100mL 300 / 300 10 meq In 100 ml @ 100 mls/hr IVPB Q1H [facility] Rx#:[id number] Oral 0 / 0 0 / 0 Output: Urine 0 / 0 200 / 200 Gastric Drainage 1000 / 1000 25 / 25 Other: Stool Size Moderate Stool Consistency formed Stool Color Brown # Voids 1 Weight 84.2 kg Blood Glucose* 92 81 69 Patient Weight 08/01/17 23:59 Weight 84.2 kg - Labs 08/01/17 02:55 08/01/17 02:55 Diabetes panel 08/01/17 Range/Units 02:55 Sodium 143 (136-145) mEq/L Potassium 3.5 (3.5-5.1) mEq/L Chloride 109 H (98-107) mEq/L Carbon Dioxide 27 (23-29) mEq/L BUN 11 (8-23) mg/dL Creatinine 0.54 L (0.70-1.30) mg/dL Glucose 90 (70-105) mg/dL Calcium 8.0 L (8.6-10.3) mg/dL Calcium panel 08/01/17 08/01/17 Range/Units 02:55 02:55 Calcium 8.0 L (8.6-10.3) mg/dL Phosphorus 2.6 L (2.7-4.5) mg/dL Pituitary panel 08/01/17 Range/Units 02:55 Sodium 143 (136-145) mEq/L Potassium 3.5 (3.5-5.1) mEq/L Chloride 109 H (98-107) mEq/L Carbon Dioxide 27 (23-29) mEq/L BUN 11 (8-23) mg/dL Creatinine 0.54 L (0.70-1.30) mg/dL Glucose 90 (70-105) mg/dL Calcium 8.0 L (8.6-10.3) mg/dL Adrenal panel 08/01/17 Range/Units 02:55 Sodium 143 (136-145) mEq/L Potassium 3.5 (3.5-5.1) mEq/L Chloride 109 H (98-107) mEq/L Carbon Dioxide 27 (23-29) mEq/L BUN 11 (8-23) mg/dL Creatinine 0.54 L (0.70-1.30) mg/dL Glucose 90 (70-105) mg/dL Calcium 8.0 L (8.6-10.3) mg/dL - Attending Attestation I examined this patient and my medical decision-making was reviewed with the Resident Physician. I agree with the documented findings, disposition and treatment plan as described except to the extent set forth below. I reviewed the above assessment and evaluation and agree with the above plan.
[2017-07-29 07:16] LABS: Eosinophils # 0.3 K/mcL (0.0-0.6); Lymphocytes # 0.9 K/mcL (0.6-4.6); Monocytes # 0.6 K/mcL (0.0-1.3); Neutrophils # 5.3 K/mcL (1.6-8.9); Platelet Estimate Normal (Normal)
[2017-07-29] MEDS: Budesonide/Formoterol 160/4.5 MDI IH SCH ×2 (07:50→21:43)
[2017-07-29 08:49] LABS: Bilirubin,Urine Small (Negative); Blood,Urine Moderate (Negative); Clarity,Urine Clear (Clear); Color,Urine Dark Yellow (Yellow); Glucose,Urine (UA) Normal (Normal); Ketones,Urine 80 mg/dL (Negative); Leukocyte Esterase,Urine Negative (Negative); Nitrite,Urine Negative (Negative); Protein,Urine Trace mg/dL (Neg-Trace); Specific Gravity,Urine 1.029 (1.010-1.025); Urobilinogen,Urine Normal (Normal)
[2017-07-29 08:52] LABS: Bacteria,Urine None Seen per hpf (None-Few); Hyaline Casts,Urine None Seen per lpf (None-Few); RBC,Urine 15-30 per hpf (0-3); Squamous Epithelial Cell,Urine Moderate per lpf (None-Few); WBC,Urine 0-3 per hpf (0-3)
[2017-07-29] MEDS: Pantoprazole 40 MG VIAL IVP SCH (10:02)
[2017-07-29] MEDS: 0.9 % Sodium Chloride 1,000 ML IVC SCH ×2 (10:03→16:22)
--- NOTE | 2017-07-29 10:15 | Internal Med Progress Note ---
<Jose Roberto Ku - Last Filed: 07/29/17 13:52> Date of Encounter: 07/29/17 Time of Encounter: 08:25 - Assessment and plan (1) Small bowel obstruction Current Visit: Yes Status: Acute Assessment and plan: Underwent exploratory celiotomy, POD 2 This morning patient does present with bandemia (32%), likely reactive Management per surgery (2) COPD (chronic obstructive pulmonary disease) Current Visit: Yes Status: Chronic Assessment and plan: Stable without acute exacerbation There is minimal wheezes on exam, but patient feels as though this is his normal Continue home regimen Qualifiers: COPD type: unspecified COPD Qualified Code(s): J44.9 - Chronic obstructive pulmonary disease, unspecified (3) Chest pain Current Visit: Yes Status: Resolved Assessment and plan: Atypical chest pain, described as burning sensation in epigastric region Questionable ST-T wave changes in several EKG leads, but no obvious elevations Troponins negativex3, Pain has largely resolved Echocardiogram shows grossly normal anatomy and LV function The patient should follow-up with primary care, may be candidate for stress test Qualifiers: Chest pain type: unspecified Qualified Code(s): R07.9 - Chest pain, unspecified (4) DVT prophylaxis Current Visit: Yes Status: Acute Assessment and plan: SCDs. (5) Hypertension Current Visit: Yes Status: Acute Assessment and plan: Blood pressure has been slightly elevated above goal It's possible that this is related to pain from surgical incision/SBO Still refuses pain medication, which I suspect plays a role in elevation of BP Despite this, because he will not comply to pain regimen, a BP med at least PRN is indicated I will start Hydralazine PRN for SBP >160 Qualifiers: Hypertension type: unspecified Qualified Code(s): I10 - Essential (primary ) hypertension - Time Spent With Patient Total time spent is greater than 50% in coordination of care (as documented) at patient's floor/unit and/or counseling patient: - Subjective Interval history: The patient is seen and examined at bedside. He had exploratory celiotomy POD2, and he has started to have increased abdominal discomfort and pain since. He says that he's passing gas, however he has not had a bowel movement. He still opts not to take pain medications. - Constitutional Vitals: Temp Pulse Resp BP Pulse Ox 98.2 F 87 18 158/91 92 07/29/17 06:54 07/29/17 06:54 07/29/17 07:51 07/29/17 06:54 07/29/17 07:51 Exam: Gen: Vitals noted. Mild distress. NG tube in place to gravity HEENT: PERRL/EOMI, oropharynx clear, Normocephalic, atraumatic. NG tube in place with normal appearing surrounding tissue. Neck: Supple. No adenopathy. Cardiac: RRR, no murmur, +S1/S2 Pulmonary: Mild wheezes throughout with prolonged expiratory phase, however grossly improved from prior Abdomen: moderate distension, some tenderness to palpation, bowel sounds present but minimal. There is a midline incision that is dressed without obvious drainage. Appears tighter than previous exam MSK: ROM intact, no joint swelling noted Extremities: no BLE edema, nontender calf, no cyanosis or clubbing Neuro: A&Ox3, moves all extremities, no focal deficits Psych: Appropriate mood and behavior Internal Medicine: Result - Labs CBC & Chem 7: 07/29/17 05:40 07/29/17 05:40 Labs: Short CBC 07/29/17 Range/Units 05:40 WBC 7.1 (4.3-11.1) K/mcL Hgb 13.3 (12.9-16.9) g/dL Hct 41.0 (37.5-50.1) % Plt Count 223 (140-400) K/mcL Neutrophils # 5.3 (1.6-8.9) K/mcL BMP 07/29/17 05:40 Sodium 142 Potassium 3.6 Chloride 111 H Carbon Dioxide 22 L BUN 17 Creatinine 0.59 L Glucose 96 Calcium 8.1 L Urine 07/29/17 Range/Units 08:32 Urine Color Dark Yellow (Yellow) Urine Clarity Clear (Clear) Urine pH 6.0 (5.0-8.0) pH Units Ur Specific [place] 1.029 H (1.010-1.025) Urine Protein Trace (Neg-Trace) mg/dL Urine Glucose (UA) Normal (Normal) mg/dL - ABG Interpretation ABG results: PT/INR, D-dimer PT 12.0 Seconds (9.4-12.1) 07/25/17 11:39 - VTE Documentation of Mechanical Device: Intermittent pneumatic compression device Consult Discharge Plan - Plan Referrals: Jarek Jain MD [Primary Care Provider] - 08/03/17 2:45 pm <JaneYrn T - Last Filed: 07/29/17 14:54> Date of Encounter: 07/29/17 - Assessment and plan (1) Small bowel obstruction Current Visit: Yes Status: Acute (2) COPD (chronic obstructive pulmonary disease) Current Visit: Yes Status: Chronic Qualifiers: COPD type: unspecified COPD Qualified Code(s): J44.9 - Chronic obstructive pulmonary disease, unspecified (3) DVT prophylaxis Current Visit: Yes Status: Acute (4) Chest pain Current Visit: Yes Status: Resolved Qualifiers: Chest pain type: unspecified Qualified Code(s): R07.9 - Chest pain, unspecified (5) Hypertension Current Visit: Yes Status: Acute Qualifiers: Hypertension type: unspecified Qualified Code(s): I10 - Essential (primary ) hypertension - Time Spent With Patient Total time spent is greater than 50% in coordination of care (as documented) at patient's floor/unit and/or counseling patient: - Constitutional Vitals: Temp Pulse Resp BP Pulse Ox 98 F 82 16 171/87 91 07/29/17 11:43 07/29/17 11:43 07/29/17 11:43 07/29/17 11:43 07/29/17 11:43 Internal Medicine: Result - Labs CBC & Chem 7: 07/29/17 05:40 07/29/17 05:40 Labs: Short CBC 07/29/17 Range/Units 05:40 WBC 7.1 (4.3-11.1) K/mcL Hgb 13.3 (12.9-16.9) g/dL Hct 41.0 (37.5-50.1) % Plt Count 223 (140-400) K/mcL Neutrophils # 5.3 (1.6-8.9) K/mcL BMP 07/29/17 05:40 Sodium 142 Potassium 3.6 Chloride 111 H Carbon Dioxide 22 L BUN 17 Creatinine 0.59 L Glucose 96 Calcium 8.1 L Urine 07/29/17 Range/Units 08:32 Urine Color Dark Yellow (Yellow) Urine Clarity Clear (Clear) Urine pH 6.0 (5.0-8.0) pH Units Ur Specific [place] 1.029 H (1.010-1.025) Urine Protein Trace (Neg-Trace) mg/dL Urine Glucose (UA) Normal (Normal) mg/dL - ABG Interpretation ABG results: PT/INR, D-dimer PT 12.0 Seconds (9.4-12.1) 07/25/17 11:39 - Attending Attestation I examined this patient and my medical decision-making was reviewed with the Resident Physician on 07/29/17. I agree with the documented findings, disposition and treatment plan as described except to the extent set forth below. POD 2 s/p exp lap for SBO. Complains of "feeling crappy" this mrn. Abdomen more taut but BS present, patient is passing flatus. Refusing pain meds. Continue current care including pain control, incentive spirometry, management of SBO per surgery, consider transfer to surgery service. Rest of details as in the resident physician's documentation
[2017-07-29] MEDS ORDERED: Ketorolac 15 MG/ML VIAL IVP PRN (13:42)
[2017-07-30 04:34] LABS: Basophils % 0.4 %; Eosinophils # 0.4 K/mcL (0.0-0.6); Hematocrit 39.8 % (37.5-50.1); Hemoglobin 12.9 g/dL (12.9-16.9); Immature Granulocytes % 0.9 % (0-4); Lymphocytes # 1.2 K/mcL (0.6-4.6); Lymphocytes % 15.1 %; Mean Corpuscular HGB Conc 32.4 g/dL (31.6-35.5); Mean Corpuscular Hemoglobin 30.2 pg (28.0-33.3); Mean Corpuscular Volume 93.2 fL (83.0-100.0); Monocytes # 0.8 K/mcL (0.0-1.3); Monocytes % 9.7 %; Neutrophils # 5.6 K/mcL (1.6-8.9); Platelet Count 241 K/mcL (140-400); Red Blood Count 4.27 M/mcL (4.19-5.50); Red Cell Distribution Width 13.2 % (11.5-14.5); Segmented Neutrophils % 68.9 %
[2017-07-30 05:01] LABS: BUN/Creatinine Ratio 26 (6-26); Blood Urea Nitrogen 14 mg/dL (8-23); Calcium 8.1 mg/dL (8.6-10.3); Carbon Dioxide 23 mEq/L (23-29); Chloride 108 mEq/L (98-107); Glucose 90 mg/dL (70-105); Osmolality,Calculated 292 (280-300); Potassium 3.4 mEq/L (3.5-5.1); Sodium 141 mEq/L (136-145); eGFR For African Americans > 60 (> 60); eGFR For Non-African Americans > 60 (> 60)
[2017-07-30] MEDS: *HR* Heparin 5,000 UNIT/ML VIAL SQ SCH ×2 (06:20→17:40)
[2017-07-30] MEDS: Budesonide/Formoterol 160/4.5 MDI IH SCH ×2 (07:36→19:44)
--- NOTE | 2017-07-30 08:29 | General Surgery Progress Note ---
Date of Encounter: 07/30/17 Time of Encounter: 07:45 - Assessment and Plan (1) Small bowel obstruction Current Visit: Yes Status: Acute Mechanical SBO without mass or adhesion. States is passing minimal gas. No bowel movements. Distention/bloating is improved over yesterday. No dysuria today. A.m. labs demonstrate no decrease in hemoglobin or recurrent leukocytosis. Plan: - POD#3 s/p ex-celiotomy relieving SBO - ambulate TID halls; may shower - NG to gravity - Diet unchanged today; may advance tomorrow - acute abdominal series pending - CBC qAM - BMP qAM to monitor for lyte imbalances; correct as needed (2) Dysuria Current Visit: Yes Status: Resolved symptomatically resolved; urine without signs of infection. (3) COPD (chronic obstructive pulmonary disease) Current Visit: Yes Status: Chronic Not dependent on O2 at home. No symptoms/signs of acute exacerbation. Qualifiers: COPD type: unspecified COPD Qualified Code(s): J44.9 - Chronic obstructive pulmonary disease, unspecified (4) Chest pain Current Visit: Yes Status: Resolved Negative biomarkers with resolved pain; unlikely ACS. - no further ACS-equivalent symptoms today - cont to monitor Qualifiers: Chest pain type: unspecified Qualified Code(s): R07.9 - Chest pain, unspecified (5) DVT prophylaxis Current Visit: Yes Status: Acute Mechanical Subjective Narrative: Bloating abdominal discomfort significantly improved from yesterday since NG changed to Guthrie gravity pressure. Incisional pain also improved, patient stating he is able to sit up and turn without much pain. Denies nausea, vomiting. Has passed flatus but has not had any bowel movements. No overnight fevers, chills, sweats, chest pain, palpitations, shortness of breath. UA done yesterday without signs of infection; dysuria has subjectively resolved. Objective Vital Signs - Last 8 Hours Temp Pulse Resp BP Pulse Ox 07/30/17 07:53 98.2 F 73 16 150/86 90 07/30/17 03:40 79 18 139/92 96 Intake and Output 07/29/17 07/30/17 07/30/17 23:59 07:59 15:59 Intake Total 300 / 300 Output Total 410 / 410 750 / 750 Balance -410 / -410 -450 / -450 Intake: Oral 300 / 300 Output: Urine 250 / 250 575 / 575 Gastric Drainage 160 / 160 175 / 175 Other: Weight 85.1 kg Blood Glucose* 80 104 Patient Weight 07/30/17 23:59 Weight 85.1 kg VITAL SIGNS: Reviewed. See [facility] GENERAL: NG connected Guthrie bag. Patient supine and appears comfortable this morning. HEENT: Normocephalic, PER, oropharynx pink/moist CV: b/l rad pulses 2+, RRR, no murmurs or gallops, no JVD RESPIRATORY: CTAB without wheezes, rales, or rhonchi ABD: soft, less tender compared to previous, no rebound/guarding/rigidity, no peritoneal signs INCISION: midline incision clean, dry, intact without purulence/bleeding/edema/ rubor/calor or dehiscence EXTREMITY: grossly normal motor function, no pedal edema; SCDs in place NEUROLOGIC EXAM: AOx3, obeys commands, no speech deficits. PSYCHIATRIC: normal mood and affect SKIN: no gross lesions, rashes, or skin changes - Labs 07/30/17 03:58 07/30/17 03:58 Diabetes panel 07/30/17 Range/Units 03:58 Sodium 141 (136-145) mEq/L Potassium 3.4 L (3.5-5.1) mEq/L Chloride 108 H (98-107) mEq/L Carbon Dioxide 23 (23-29) mEq/L BUN 14 (8-23) mg/dL Creatinine 0.54 L (0.70-1.30) mg/dL Glucose 90 (70-105) mg/dL Calcium 8.1 L (8.6-10.3) mg/dL Calcium panel 07/30/17 Range/Units 03:58 Calcium 8.1 L (8.6-10.3) mg/dL Pituitary panel 07/30/17 Range/Units 03:58 Sodium 141 (136-145) mEq/L Potassium 3.4 L (3.5-5.1) mEq/L Chloride 108 H (98-107) mEq/L Carbon Dioxide 23 (23-29) mEq/L BUN 14 (8-23) mg/dL Creatinine 0.54 L (0.70-1.30) mg/dL Glucose 90 (70-105) mg/dL Calcium 8.1 L (8.6-10.3) mg/dL Adrenal panel 07/30/17 Range/Units 03:58 Sodium 141 (136-145) mEq/L Potassium 3.4 L (3.5-5.1) mEq/L Chloride 108 H (98-107) mEq/L Carbon Dioxide 23 (23-29) mEq/L BUN 14 (8-23) mg/dL Creatinine 0.54 L (0.70-1.30) mg/dL Glucose 90 (70-105) mg/dL Calcium 8.1 L (8.6-10.3) mg/dL - VTE Documentation of Mechanical Device: Intermittent pneumatic compression device Consult Discharge Plan - Plan Referrals: Jarek Jain MD [Primary Care Provider] - 08/03/17 2:45 pm
[2017-07-30] MEDS: Pantoprazole 40 MG VIAL IVP SCH (08:55)
--- NOTE | 2017-07-30 09:11 | Internal Med Progress Note ---
<Bertrand Alonso - Last Filed: 07/30/17 12:43> Date of Encounter: 07/30/17 Time of Encounter: 08:50 - Assessment and plan (1) Small bowel obstruction Current Visit: Yes Status: Acute Assessment and plan: Underwent exploratory celiotomy on 07/27/17 According to operative notes patient had "kink" in his bowels with transition point that was easily reduced Initial elevation of white blood cell count following surgery was observed Continued management per surgery (2) COPD (chronic obstructive pulmonary disease) Current Visit: Yes Status: Chronic Assessment and plan: Stable Encourage use of incentive spirometer Continue home regimen Qualifiers: COPD type: unspecified COPD Qualified Code(s): J44.9 - Chronic obstructive pulmonary disease, unspecified (3) DVT prophylaxis Current Visit: Yes Status: Acute Assessment and plan: SCDs (4) Chest pain Current Visit: Yes Status: Resolved Assessment and plan: Atypical chest pain, described as burning sensation in epigastric region Questionable ST-T wave changes in several EKG leads, but no obvious elevations Troponins negative x3, Pain has largely resolved Echocardiogram shows grossly normal anatomy and LV function The patient should follow-up with primary care, may be candidate for stress test Qualifiers: Chest pain type: unspecified Qualified Code(s): R07.9 - Chest pain, unspecified (5) Hypertension Current Visit: Yes Status: Acute Assessment and plan: Blood pressure has been slightly elevated It's possible that this is related to pain from surgical incision/SBO Still refuses pain medication Despite this, because he will not comply to pain regimen, a BP med at least PRN is indicated Continue Hydralazine PRN for SBP >160 Qualifiers: Hypertension type: unspecified Qualified Code(s): I10 - Essential (primary ) hypertension - Time Spent With Patient Total time spent is greater than 50% in coordination of care (as documented) at patient's floor/unit and/or counseling patient: 25 - 35 minutes - Subjective Interval history: Patient reports doing well today. He denies having a bowel movement, but does state he has had increased flatus. He has had some Jell-O but reports that wit was removed by the NG tube. He denies any fevers/chills, denies shortness of breath, denies chest pain. He states he is using his incentive spirometer. - Constitutional Vitals: Temp Pulse Resp BP Pulse Ox 98.2 F 73 16 150/86 90 07/30/17 07:53 07/30/17 07:53 07/30/17 07:53 07/30/17 07:53 07/30/17 07:53 Exam: General: Cooperative, pleasant, no acute distress, alert and oriented 3, answers questions appropriately HEENT: Normocephalic, atraumatic, sclera anicteric, oral mucosa moist Respiratory: No accessory muscle usage, clear to auscultation bilaterally, no wheezes/rhonchi/rales appreciated Cardiovascular: Regular rate and rhythm, S1 and S2 present, no murmurs/rubs/ gallops/clicks appreciated GI/abdominal: Soft, mild distention, nontender, bandage in place in epigastric region, hypoactive bowel sounds, no peritoneal signs Extremities: No calf tenderness, no pedal edema appreciated, warm, lower extremity pulses palpable and symmetrical Neurological: Alert and oriented 3, no facial droop, no focal deficits Skin: Dry, intact, normal color Internal Medicine: Result - Labs CBC & Chem 7: 07/30/17 03:58 07/30/17 03:58 Labs: Short CBC 07/30/17 Range/Units 03:58 WBC 8.1 (4.3-11.1) K/mcL Hgb 12.9 (12.9-16.9) g/dL Hct 39.8 (37.5-50.1) % Plt Count 241 (140-400) K/mcL Neutrophils # 5.6 (1.6-8.9) K/mcL BMP 07/30/17 03:58 Sodium 141 Potassium 3.4 L Chloride 108 H Carbon Dioxide 23 BUN 14 Creatinine 0.54 L Glucose 90 Calcium 8.1 L - ABG Interpretation ABG results: PT/INR, D-dimer PT 12.0 Seconds (9.4-12.1) 07/25/17 11:39 - VTE Documentation of Mechanical Device: Intermittent pneumatic compression device Consult Discharge Plan - Plan Referrals: Jarek Jain MD [Primary Care Provider] - 08/03/17 2:45 pm <Yrn Lara - Last Filed: 07/30/17 14:03> Date of Encounter: 07/30/17 - Assessment and plan (1) Small bowel obstruction Current Visit: Yes Status: Acute (2) COPD (chronic obstructive pulmonary disease) Current Visit: Yes Status: Chronic Qualifiers: COPD type: unspecified COPD Qualified Code(s): J44.9 - Chronic obstructive pulmonary disease, unspecified (3) DVT prophylaxis Current Visit: Yes Status: Acute (4) Chest pain Current Visit: Yes Status: Resolved Qualifiers: Chest pain type: unspecified Qualified Code(s): R07.9 - Chest pain, unspecified (5) Hypertension Current Visit: Yes Status: Acute Qualifiers: Hypertension type: unspecified Qualified Code(s): I10 - Essential (primary ) hypertension - Time Spent With Patient Total time spent is greater than 50% in coordination of care (as documented) at patient's floor/unit and/or counseling patient: - Constitutional Vitals: Temp Pulse Resp BP Pulse Ox 98.2 F 73 16 150/86 90 07/30/17 07:53 07/30/17 07:53 07/30/17 07:53 07/30/17 07:53 07/30/17 07:53 Internal Medicine: Result - Labs CBC & Chem 7: 07/30/17 03:58 07/30/17 03:58 Labs: Short CBC 07/30/17 Range/Units 03:58 WBC 8.1 (4.3-11.1) K/mcL Hgb 12.9 (12.9-16.9) g/dL Hct 39.8 (37.5-50.1) % Plt Count 241 (140-400) K/mcL Neutrophils # 5.6 (1.6-8.9) K/mcL BMP 07/30/17 03:58 Sodium 141 Potassium 3.4 L Chloride 108 H Carbon Dioxide 23 BUN 14 Creatinine 0.54 L Glucose 90 Calcium 8.1 L - ABG Interpretation ABG results: PT/INR, D-dimer PT 12.0 Seconds (9.4-12.1) 07/25/17 11:39 - Attending Attestation I examined this patient and my medical decision-making was reviewed with the Resident Physician on 07/30/17. I agree with the documented findings, disposition and treatment plan as described except to the extent set forth below. Wheezing on exam, started on duonebs. No BM still, abdomen is soft, electrolytes are stable. Surgery is following. Continue current management.
[2017-07-30] MEDS ORDERED: Ipratropium/Albuterol Neb 3 ML IH ONE (11:59)
[2017-07-30] MEDS: 0.9 % Sodium Chloride 1,000 ML IVC SCH (12:27)
[2017-07-30] MEDS: Ipratropium/Albuterol Neb 3 ML IH SCH ×4 (15:02→23:30)
[2017-07-31 03:16] LABS: Basophils % 0.5 %; Eosinophils # 0.4 K/mcL (0.0-0.6); Eosinophils % 4.3 %; Hematocrit 37.1 % (37.5-50.1); Hemoglobin 12.3 g/dL (12.9-16.9); Lymphocytes # 1.3 K/mcL (0.6-4.6); Lymphocytes % 14.8 %; Mean Corpuscular HGB Conc 33.2 g/dL (31.6-35.5); Mean Corpuscular Hemoglobin 30.8 pg (28.0-33.3); Mean Platelet Volume 8.9 fL (9.4-12.4); Monocytes # 0.9 K/mcL (0.0-1.3); Monocytes % 10.6 %; Neutrophils # 5.9 K/mcL (1.6-8.9); Platelet Count 242 K/mcL (140-400); Red Blood Count 3.99 M/mcL (4.19-5.50); Red Cell Distribution Width 13.3 % (11.5-14.5); Segmented Neutrophils % 68.8 %
[2017-07-31] MEDS: Ipratropium/Albuterol Neb 3 ML IH SCH ×6 (03:33→23:24)
[2017-07-31 03:36] LABS: BUN/Creatinine Ratio 25 (6-26); Blood Urea Nitrogen 13 mg/dL (8-23); Carbon Dioxide 26 mEq/L (23-29); Chloride 108 mEq/L (98-107); Glucose 95 mg/dL (70-105); Osmolality,Calculated 294 (280-300); Potassium 3.2 mEq/L (3.5-5.1); Sodium 142 mEq/L (136-145); eGFR For African Americans > 60 (> 60); eGFR For Non-African Americans > 60 (> 60)
[2017-07-31] MEDS: *HR* Heparin 5,000 UNIT/ML VIAL SQ SCH ×2 (06:21→17:57)
[2017-07-31 07:23] LABS: Magnesium 1.9 mg/dL (1.6-2.6); Phosphorous 2.8 mg/dL (2.7-4.5)
[2017-07-31] MEDS: Budesonide/Formoterol 160/4.5 MDI IH SCH ×2 (07:31→19:37)
--- NOTE | 2017-07-31 08:50 | General Surgery Progress Note ---
Date of Encounter: 07/31/17 Time of Encounter: 06:30 - Assessment and Plan (1) Small bowel obstruction Current Visit: Yes Status: Acute Mechanical SBO without mass or adhesion. States is passing minimal gas. No bowel movements. Distention/bloating is improved over yesterday. No dysuria today. A.m. labs demonstrate no decrease in hemoglobin or recurrent leukocytosis. Plan: - POD#3 s/p ex-celiotomy relieving SBO - ambulate TID halls; may shower - NG to gravity, cont - bowel sounds continue be quiet; abdominal series yesterday demonstrated several dilated loops of small bowel - repeat abdominal series in a.m. prior to consideration of advancing diet - CBC qAM - BMP qAM to monitor for lyte imbalances; correct as needed (2) Dysuria Current Visit: Yes Status: Resolved Resolved (3) COPD (chronic obstructive pulmonary disease) Current Visit: Yes Status: Chronic Not dependent on O2 at home. No symptoms/signs of acute exacerbation. Qualifiers: COPD type: unspecified COPD Qualified Code(s): J44.9 - Chronic obstructive pulmonary disease, unspecified (4) Chest pain Current Visit: Yes Status: Resolved Negative biomarkers with resolved pain; unlikely ACS. - no further ACS-equivalent symptoms today - cont to monitor Qualifiers: Chest pain type: unspecified Qualified Code(s): R07.9 - Chest pain, unspecified (5) DVT prophylaxis Current Visit: Yes Status: Acute Mechanical, ambulate in halls Subjective Narrative: Continued limited clears over the day yesterday. Obtained abdominal x-ray in the afternoon which demonstrated significant dilated loops of small bowel. Patient did have two bowel movements this morning consistent of soft stool; states it relieved a lot of the bloating he was feeling. No recurrent nausea/ vomiting. Afebrile overnight. Postsurgical abdominal pain well-tolerated today. Objective Vital Signs - Last 8 Hours Temp Pulse Resp BP Pulse Ox 07/31/17 07:31 18 92 07/31/17 07:04 98.3 F 81 16 169/88 92 07/31/17 04:00 98.4 F 102 16 156/97 91 Intake and Output 07/30/17 07/31/17 07/31/17 23:59 07:59 15:59 Intake Total 120 / 120 0 / 0 Output Total 200 / 200 300 / 300 Balance -80 / -80 -300 / -300 Intake: Oral 120 / 120 0 / 0 Output: Urine 200 / 200 300 / 300 Other: Stool Size Moderate Stool Consistency soft formed Weight 85.3 kg Blood Glucose* 88 85 Patient Weight 07/31/17 23:59 Weight 85.3 kg VITAL SIGNS: Reviewed. See [facility] GENERAL: comfortably supine. NG tube in place and connected Guthrie bag. No acute distress. HEENT: Normocephalic, PER, EOMi, oropharynx pink/moist, no JVD noted. CV: RRR RESPIRATORY: CTAB without wheezes, rales, or rhonchi ABD: soft, mildly tender near incision site, no rebound/guarding/rigidity, no peritoneal signs INCISION: midline incision clean, dry, intact without purulence/bleeding/edema/ rubor/calor or dehiscence EXTREMITY: grossly normal motor function, no pedal edema; SCDs in place NEUROLOGIC EXAM: AOx3, obeys commands, no speech deficits. PSYCHIATRIC: normal mood and affect SKIN: no gross lesions, rashes, or skin changes - Labs 07/31/17 02:52 07/31/17 02:52 Diabetes panel 07/31/17 Range/Units 02:52 Sodium 142 (136-145) mEq/L Potassium 3.2 L (3.5-5.1) mEq/L Chloride 108 H (98-107) mEq/L Carbon Dioxide 26 (23-29) mEq/L BUN 13 (8-23) mg/dL Creatinine 0.51 L (0.70-1.30) mg/dL Glucose 95 (70-105) mg/dL Calcium 8.0 L (8.6-10.3) mg/dL Calcium panel 07/31/17 Range/Units 02:52 Calcium 8.0 L (8.6-10.3) mg/dL Phosphorus 2.8 (2.7-4.5) mg/dL Pituitary panel 07/31/17 Range/Units 02:52 Sodium 142 (136-145) mEq/L Potassium 3.2 L (3.5-5.1) mEq/L Chloride 108 H (98-107) mEq/L Carbon Dioxide 26 (23-29) mEq/L BUN 13 (8-23) mg/dL Creatinine 0.51 L (0.70-1.30) mg/dL Glucose 95 (70-105) mg/dL Calcium 8.0 L (8.6-10.3) mg/dL Adrenal panel 07/31/17 Range/Units 02:52 Sodium 142 (136-145) mEq/L Potassium 3.2 L (3.5-5.1) mEq/L Chloride 108 H (98-107) mEq/L Carbon Dioxide 26 (23-29) mEq/L BUN 13 (8-23) mg/dL Creatinine 0.51 L (0.70-1.30) mg/dL Glucose 95 (70-105) mg/dL Calcium 8.0 L (8.6-10.3) mg/dL - VTE Documentation of Mechanical Device: Intermittent pneumatic compression device Consult Discharge Plan - Plan Referrals: Jarek Jain MD [Primary Care Provider] - 08/03/17 2:45 pm
[2017-07-31] MEDS: Pantoprazole 40 MG VIAL IVP SCH (10:21)
--- NOTE | 2017-07-31 10:31 | Internal Med Progress Note ---
<Bertrand Alonso - Last Filed: 07/31/17 10:33> Date of Encounter: 07/31/17 Time of Encounter: 10:15 - Assessment and plan (1) Small bowel obstruction Current Visit: Yes Status: Acute Assessment and plan: Underwent exploratory celiotomy on 07/27/17 According to operative notes patient had "kink" in his bowels with transition point that was easily reduced Initial elevation of white blood cell count following surgery was observed Patient had repeat KUB performed on 07/30/17 that showed persistence of multiple moderately to severe dilated small bowel loops could represent partial obstruction first ileus since last surgery Patient reports having 2 bowel movements since yesterday Continued management per surgery Consider removing NG tube and slowly advancing diet (2) COPD (chronic obstructive pulmonary disease) Current Visit: Yes Status: Chronic Assessment and plan: Stable Encourage use of incentive spirometer Continue home regimen Qualifiers: COPD type: unspecified COPD Qualified Code(s): J44.9 - Chronic obstructive pulmonary disease, unspecified (3) DVT prophylaxis Current Visit: Yes Status: Acute Assessment and plan: SCDs (4) Hypertension Current Visit: Yes Status: Acute Assessment and plan: Blood pressure has been slightly elevated It's possible that this is related to pain from surgical incision/SBO Still refuses pain medication Despite this, because he will not comply to pain regimen, a BP med at least PRN is indicated Continue Hydralazine PRN for SBP >160 will consider PO htn medications when patient taking PO, if needed Qualifiers: Hypertension type: unspecified Qualified Code(s): I10 - Essential (primary ) hypertension - Time Spent With Patient Total time spent is greater than 50% in coordination of care (as documented) at patient's floor/unit and/or counseling patient: - Subjective Interval history: Patient reports feeling a little bit better today. He states he has had 2 bowel movements since yesterday, with some decrease of his abdomen signs. He denies any new concerns/complaints. He states that he has had some off and on dyspnea, but overall is doing well. He denies fever/chills, denies chest pain, denies any abdominal pain other than his incision. - Constitutional Vitals: Temp Pulse Resp BP Pulse Ox 98.3 F 81 18 169/88 92 07/31/17 07:04 07/31/17 07:04 07/31/17 07:31 07/31/17 07:04 07/31/17 07:31 Exam: General: Cooperative, pleasant, no acute distress, alert and oriented 3, answers questions appropriately HEENT: Normocephalic, atraumatic, Conjunctiva pink, sclera anicteric Respiratory: No accessory muscle usage, clear to auscultation bilaterally, no wheezes/rhonchi/rales appreciated Cardiovascular: Regular rate and rhythm, S1 and S2 present, no murmurs/rubs/ gallops/clicks appreciated GI/abdominal: Nondistended, nontender, bandage in place and epigastric region from prior celiotomy, NG in place, soft, normal bowel sounds, no peritoneal signs Extremities: No calf tenderness, noncyanotic, no pedal edema appreciated, warm, lower extremity pulses palpable and symmetrical Neurological: Alert and oriented 3, no facial droop, no focal deficits Skin: Dry, intact, normal color Internal Medicine: Result - Labs CBC & Chem 7: 07/31/17 02:52 07/31/17 02:52 Labs: Short CBC 07/31/17 Range/Units 02:52 WBC 8.6 (4.3-11.1) K/mcL Hgb 12.3 L (12.9-16.9) g/dL Hct 37.1 L (37.5-50.1) % Plt Count 242 (140-400) K/mcL Neutrophils # 5.9 (1.6-8.9) K/mcL BMP 07/31/17 02:52 Sodium 142 Potassium 3.2 L Chloride 108 H Carbon Dioxide 26 BUN 13 Creatinine 0.51 L Glucose 95 Calcium 8.0 L - ABG Interpretation ABG results: PT/INR, D-dimer PT 12.0 Seconds (9.4-12.1) 07/25/17 11:39 - Impressions Impressions KUB X-Ray 07/25/17 13:29 IMPRESSION: Nasogastric tube in appropriate position. Findings concerning for small bowel obstruction. D/ / 07/25/2017 21:25:14 Balta Gates MD / [email or web address] Interpreting Provider: Balta Gates MD Chest/Abdomen X-ray 07/30/17 13:38 IMPRESSION: 1. Persistence of multiple moderately to severely dilated small bowel loops potentially due to persistent partial obstruction. However, this could also represent ileus given interim surgery. 2. No acute cardiopulmonary process. D/ / Jose Roberto Fuentes MD / Jose Roberto Fuentes MD Interpreting Provider: Jose Roberto Fuentes MD - VTE Documentation of Mechanical Device: Intermittent pneumatic compression device Consult Discharge Plan - Plan Referrals: Jarek Jain MD [Primary Care Provider] - 08/03/17 2:45 pm <Yrn Lara - Last Filed: 07/31/17 13:29> Date of Encounter: 07/31/17 - Assessment and plan (1) Small bowel obstruction Current Visit: Yes Status: Acute (2) COPD (chronic obstructive pulmonary disease) Current Visit: Yes Status: Chronic Qualifiers: COPD type: unspecified COPD Qualified Code(s): J44.9 - Chronic obstructive pulmonary disease, unspecified (3) DVT prophylaxis Current Visit: Yes Status: Acute (4) Hypertension Current Visit: Yes Status: Acute Qualifiers: Hypertension type: unspecified Qualified Code(s): I10 - Essential (primary ) hypertension - Time Spent With Patient Total time spent is greater than 50% in coordination of care (as documented) at patient's floor/unit and/or counseling patient: - Constitutional Vitals: Temp Pulse Resp BP Pulse Ox 98.3 F 81 18 169/88 92 07/31/17 07:04 07/31/17 07:04 07/31/17 07:31 07/31/17 07:04 07/31/17 07:31 Internal Medicine: Result - Labs CBC & Chem 7: 07/31/17 02:52 07/31/17 02:52 Labs: Short CBC 07/31/17 Range/Units 02:52 WBC 8.6 (4.3-11.1) K/mcL Hgb 12.3 L (12.9-16.9) g/dL Hct 37.1 L (37.5-50.1) % Plt Count 242 (140-400) K/mcL Neutrophils # 5.9 (1.6-8.9) K/mcL BMP 07/31/17 02:52 Sodium 142 Potassium 3.2 L Chloride 108 H Carbon Dioxide 26 BUN 13 Creatinine 0.51 L Glucose 95 Calcium 8.0 L - ABG Interpretation ABG results: PT/INR, D-dimer PT 12.0 Seconds (9.4-12.1) 07/25/17 11:39 - Impressions Impressions KUB X-Ray 07/25/17 13:29 IMPRESSION: Nasogastric tube in appropriate position. Findings concerning for small bowel obstruction. D/ / 07/25/2017 21:25:14 Balta Gates MD / [email or web address] Interpreting Provider: Balta Gates MD Chest/Abdomen X-ray 07/30/17 13:38 IMPRESSION: 1. Persistence of multiple moderately to severely dilated small bowel loops potentially due to persistent partial obstruction. However, this could also represent ileus given interim surgery. 2. No acute cardiopulmonary process. D/ / Jose Roberto Fuentes MD / Jose Roberto Fuentes MD Interpreting Provider: Jose Roberto Fuentes MD - Attending Attestation I examined this patient and my medical decision-making was reviewed with the Resident Physician on 07/31/17. I agree with the documented findings, disposition and treatment plan as described except to the extent set forth below. Wheezing on exam, started on duonebs. Now having BM, SOB has improved, his feeding is up to surgery,abdomen is soft, electrolytes are stable. Surgery is following. Continue current management.
[2017-07-31] MEDS: 0.9 % Sodium Chloride 1,000 ML IVC SCH (17:57)
[2017-08-01 03:11] LABS: Basophils % 0.4 %; Eosinophils # 0.5 K/mcL (0.0-0.6); Eosinophils % 5.1 %; Hematocrit 38.2 % (37.5-50.1); Hemoglobin 12.5 g/dL (12.9-16.9); Immature Granulocytes % 1.2 % (0-4); Lymphocytes # 1.6 K/mcL (0.6-4.6); Lymphocytes % 15.3 %; Mean Corpuscular HGB Conc 32.7 g/dL (31.6-35.5); Mean Corpuscular Hemoglobin 30.6 pg (28.0-33.3); Mean Corpuscular Volume 93.4 fL (83.0-100.0); Mean Platelet Volume 8.8 fL (9.4-12.4); Monocytes # 1.1 K/mcL (0.0-1.3); Monocytes % 10.7 %; Neutrophils # 6.9 K/mcL (1.6-8.9); Platelet Count 269 K/mcL (140-400); Red Blood Count 4.09 M/mcL (4.19-5.50); Red Cell Distribution Width 13.2 % (11.5-14.5); Segmented Neutrophils % 67.3 %
[2017-08-01 03:30] LABS: BUN/Creatinine Ratio 20 (6-26); Blood Urea Nitrogen 11 mg/dL (8-23); Carbon Dioxide 27 mEq/L (23-29); Chloride 109 mEq/L (98-107); Glucose 90 mg/dL (70-105); Osmolality,Calculated 295 (280-300); Phosphorous 2.6 mg/dL (2.7-4.5); Potassium 3.5 mEq/L (3.5-5.1); Sodium 143 mEq/L (136-145); eGFR For African Americans > 60 (> 60); eGFR For Non-African Americans > 60 (> 60)
[2017-08-01] MEDS: Ipratropium/Albuterol Neb 3 ML IH SCH ×2 (04:29→08:04)
[2017-08-01] MEDS: 0.9 % Sodium Chloride 1,000 ML IVC SCH (06:15)
[2017-08-01] MEDS: *HR* Heparin 5,000 UNIT/ML VIAL SQ SCH ×2 (06:16→18:23)
--- NOTE | 2017-08-01 06:49 | General Surgery Progress Note ---
<Ruel Gray - Last Filed: 08/02/17 11:29> Date of Encounter: 08/02/17 Time of Encounter: 11:15 - Assessment and Plan (1) Small bowel obstruction Current Visit: Yes Status: Acute Mechanical SBO without mass or adhesion. States is passing minimal gas. No bowel movements. Distention/bloating is improved over yesterday. No dysuria today. A.m. labs demonstrate no decrease in hemoglobin or recurrent leukocytosis. Plan: - POD#5 s/p ex-celiotomy relieving SBO - encouraged patient to ambulate TID halls; may shower - Abd Series today demonstrated stable SB distention with slight improvement & duodenal placement of NG tip - NG withdrawn 12 inches; follow up KUB pending - BMP, Mg++, & PO4-- qAM; correct as needed (2) Dysuria Current Visit: Yes Status: Resolved Resolved (3) COPD (chronic obstructive pulmonary disease) Current Visit: Yes Status: Chronic Not dependent on O2 at home. No symptoms/signs of acute exacerbation. Qualifiers: COPD type: unspecified COPD Qualified Code(s): J44.9 - Chronic obstructive pulmonary disease, unspecified (4) Chest pain Current Visit: Yes Status: Resolved Negative biomarkers with resolved pain; unlikely ACS. - no further ACS-equivalent symptoms today - cont to monitor Qualifiers: Chest pain type: unspecified Qualified Code(s): R07.9 - Chest pain, unspecified (5) DVT prophylaxis Current Visit: Yes Status: Acute Mechanical, ambulate in halls Subjective Narrative: Overall pain is improving. No nausea/vomiting/dry-heaving. Positive flatus. 2 BMs yesterday; none so far today. States has appetite and wants NG tube out. Objective Vital Signs - Last 8 Hours Temp Pulse Resp BP Pulse Ox 08/01/17 03:57 98.1 F 87 17 149/78 93 08/01/17 00:41 97.9 F 74 16 165/89 93 Intake and Output 07/31/17 07/31/17 08/01/17 15:59 23:59 07:59 Intake Total 1300 / 1300 0 / 0 1000 / 1000 Output Total 1000 / 1000 225 / 225 Balance 1300 / 1300 -1000 / -1000 775 / 775 Intake: IV Fluids 1300 / 1300 1000 / 1000 0.9 % Sodium Chloride 1,000 ML 1000 / 1000 1000 / 1000 @ 50 mls/hr IVC .Q20H [facility] Rx#: [id number] Potassium Chloride 10 mEq/100mL 300 / 300 10 meq In 100 ml @ 100 mls/hr IVPB Q1H [facility] Rx#:[id number] Oral 0 / 0 0 / 0 Output: Urine 0 / 0 200 / 200 Gastric Drainage 1000 / 1000 25 / 25 Other: Stool Size Moderate Stool Consistency formed Stool Color Brown # Voids 1 Weight 84.2 kg Blood Glucose* 92 81 Patient Weight 08/01/17 23:59 Weight 84.2 kg VITAL SIGNS: Reviewed. See [facility] GENERAL: comfortably supine. NG tube in place and connected Guthrie bag. No acute distress. HEENT: Normocephalic, PER, EOMi, oropharynx pink/moist, no JVD noted. CV: RRR RESPIRATORY: CTAB without wheezes, rales, or rhonchi ABD: infrequent/quiet bowel sounds, soft, non-distended, non-tender INCISION: no signs of infection/dehiscence EXTREMITY: grossly normal motor function, no pedal edema; SCDs in place NEUROLOGIC EXAM: AOx3, obeys commands, no speech deficits. PSYCHIATRIC: normal mood and affect SKIN: no gross lesions, rashes, or skin changes - Labs 08/01/17 02:55 08/02/17 04:13 Diabetes panel 07/31/17 08/01/17 Range/Units 02:52 02:55 Sodium 142 143 (136-145) mEq/L Potassium 3.2 L 3.5 (3.5-5.1) mEq/L Chloride 108 H 109 H (98-107) mEq/L Carbon Dioxide 26 27 (23-29) mEq/L BUN 13 11 (8-23) mg/dL Creatinine 0.51 L 0.54 L (0.70-1.30) mg/dL Glucose 95 90 (70-105) mg/dL Calcium 8.0 L 8.0 L (8.6-10.3) mg/dL Calcium panel 07/31/17 08/01/17 08/01/17 Range/Units 02:52 02:55 02:55 Calcium 8.0 L 8.0 L (8.6-10.3) mg/dL Phosphorus 2.8 2.6 L (2.7-4.5) mg/dL Pituitary panel 07/31/17 08/01/17 Range/Units 02:52 02:55 Sodium 142 143 (136-145) mEq/L Potassium 3.2 L 3.5 (3.5-5.1) mEq/L Chloride 108 H 109 H (98-107) mEq/L Carbon Dioxide 26 27 (23-29) mEq/L BUN 13 11 (8-23) mg/dL Creatinine 0.51 L 0.54 L (0.70-1.30) mg/dL Glucose 95 90 (70-105) mg/dL Calcium 8.0 L 8.0 L (8.6-10.3) mg/dL Adrenal panel 07/31/17 08/01/17 Range/Units 02:52 02:55 Sodium 142 143 (136-145) mEq/L Potassium 3.2 L 3.5 (3.5-5.1) mEq/L Chloride 108 H 109 H (98-107) mEq/L Carbon Dioxide 26 27 (23-29) mEq/L BUN 13 11 (8-23) mg/dL Creatinine 0.51 L 0.54 L (0.70-1.30) mg/dL Glucose 95 90 (70-105) mg/dL Calcium 8.0 L 8.0 L (8.6-10.3) mg/dL - VTE Documentation of Mechanical Device: Intermittent pneumatic compression device Consult Discharge Plan - Plan Referrals: Jarek Jain MD [Primary Care Provider] - 08/03/17 2:45 pm <Mihai Stevens - Last Filed: 08/03/17 06:45> Date of Encounter: 08/01/17 Objective Vital Signs - Last 8 Hours Temp Pulse Resp BP Pulse Ox 08/03/17 04:53 97.8 F 86 18 164/82 93 Intake and Output 08/02/17 08/02/17 08/03/17 15:59 23:59 07:59 Intake Total 420 / 420 1000 / 1000 Output Total 300 / 300 200 / 200 Balance 420 / 420 700 / 700 -200 / -200 Intake: IV Fluids 300 / 300 1000 / 1000 0.9 % Sodium Chloride 1,000 ML 1000 / 1000 @ 50 mls/hr IVC .Q20H [facility] Rx#: [id number] Potassium Chloride 10 mEq/100mL 300 / 300 10 meq In 100 ml @ 100 mls/hr IVPB Q1H [facility] Rx#:[id number] Oral 120 / 120 0 / 0 Output: Urine 300 / 300 200 / 200 Other: Meal Breakfast Percent of Meal Consumed 0% # Voids 1 Weight 86.9 kg Blood Glucose* 73 80 Patient Weight 08/03/17 23:59 Weight 86.9 kg - Labs 08/01/17 02:55 08/03/17 03:58 Diabetes panel 08/03/17 Range/Units 03:58 Sodium 144 (136-145) mEq/L Potassium 3.3 L (3.5-5.1) mEq/L Chloride 108 H (98-107) mEq/L Carbon Dioxide 25 (23-29) mEq/L BUN 7 L (8-23) mg/dL Creatinine 0.48 L (0.70-1.30) mg/dL Glucose 91 (70-105) mg/dL Calcium 7.8 L (8.6-10.3) mg/dL Calcium panel 08/03/17 Range/Units 03:58 Calcium 7.8 L (8.6-10.3) mg/dL Phosphorus 2.8 (2.7-4.5) mg/dL Pituitary panel 08/03/17 Range/Units 03:58 Sodium 144 (136-145) mEq/L Potassium 3.3 L (3.5-5.1) mEq/L Chloride 108 H (98-107) mEq/L Carbon Dioxide 25 (23-29) mEq/L BUN 7 L (8-23) mg/dL Creatinine 0.48 L (0.70-1.30) mg/dL Glucose 91 (70-105) mg/dL Calcium 7.8 L (8.6-10.3) mg/dL Adrenal panel 08/03/17 Range/Units 03:58 Sodium 144 (136-145) mEq/L Potassium 3.3 L (3.5-5.1) mEq/L Chloride 108 H (98-107) mEq/L Carbon Dioxide 25 (23-29) mEq/L BUN 7 L (8-23) mg/dL Creatinine 0.48 L (0.70-1.30) mg/dL Glucose 91 (70-105) mg/dL Calcium 7.8 L (8.6-10.3) mg/dL - Attending Attestation I examined this patient and my medical decision-making was reviewed with the Resident Physician. I agree with the documented findings, disposition and treatment plan as described except to the extent set forth below. I reviewed the above assessment and evaluation and continue with the above plan. Await return of bowel function. Have withdrawn the NG tube approximately 12 inches due to misplacement within the small bowel. Will clamp NG tube to see if he is able to tolerate and continue to have flatus.
[2017-08-01] MEDS: Budesonide/Formoterol 160/4.5 MDI IH SCH ×2 (08:05→21:22)
--- NOTE | 2017-08-01 08:11 | Internal Med Progress Note ---
<Jose Roberto Ku - Last Filed: 08/01/17 14:34> Date of Encounter: 08/01/17 Time of Encounter: 09:10 - Assessment and plan (1) Small bowel obstruction Current Visit: Yes Status: Acute Assessment and plan: Underwent exploratory celiotomy on 07/27/17 According to operative notes patient had "kink" in his bowels with transition point that was easily reduced Initial elevation of white blood cell count following surgery was observed Patient had repeat KUB performed on 08/01/17 that showed persistence of multiple moderately to severe dilated small bowel loops likely life assurance representative of post-op ileus Patient reports having multiple solid bowel movements and some diarrhea since yesterday Continued management per surgery Consider removing NG tube and slowly advancing diet per surgery We will transfer this patient to the surgery service. Please reconsult us for further questions or concerns. (2) COPD (chronic obstructive pulmonary disease) Current Visit: Yes Status: Chronic Assessment and plan: Stable Encourage use of incentive spirometer Continue home regimen Qualifiers: COPD type: unspecified COPD Qualified Code(s): J44.9 - Chronic obstructive pulmonary disease, unspecified (3) DVT prophylaxis Current Visit: Yes Status: Acute Assessment and plan: SCDs (4) Hypertension Current Visit: Yes Status: Acute Assessment and plan: Blood pressure has been slightly elevated It's possible that this is related to pain from surgical incision/SBO Still refuses pain medication Continue Hydralazine PRN for SBP >160 Recommend starting Amlodipine 5mg, order placed by nurse instructed by surgery not to give Qualifiers: Hypertension type: unspecified Qualified Code(s): I10 - Essential (primary ) hypertension - Time Spent With Patient Total time spent is greater than 50% in coordination of care (as documented) at patient's floor/unit and/or counseling patient: - Subjective Interval history: The patient is seen and examined at bedside. He is POD5 of exploratory celiotomy and continues to experience some bloating. He does still have NG tube , however he has had two moderate sized bowel movements. - Constitutional Vitals: Temp Pulse Resp BP Pulse Ox 97.8 F 75 16 137/89 93 08/01/17 07:02 08/01/17 07:02 08/01/17 07:02 08/01/17 07:02 08/01/17 07:02 Exam: Gen: Vitals noted. No acute distress. NG tube in place to gravity HEENT: PERRL/EOMI, oropharynx clear, Normocephalic, atraumatic. NG tube in place with normal appearing surrounding tissue. Neck: Supple. No adenopathy. Cardiac: RRR, no murmur, +S1/S2 Pulmonary: Relatively CTAB Abdomen: Mild distension, some tenderness to palpation, bowel sounds present but minimal. There is a midline incision that is dressed without obvious drainage. MSK: ROM intact, no joint swelling noted Extremities: no BLE edema, nontender calf, no cyanosis or clubbing Neuro: A&Ox3, moves all extremities, no focal deficits Psych: Appropriate mood and behavior Internal Medicine: Result - Labs CBC & Chem 7: 08/01/17 02:55 08/01/17 02:55 Labs: Short CBC 08/01/17 Range/Units 02:55 WBC 10.2 (4.3-11.1) K/mcL Hgb 12.5 L (12.9-16.9) g/dL Hct 38.2 (37.5-50.1) % Plt Count 269 (140-400) K/mcL Neutrophils # 6.9 (1.6-8.9) K/mcL BMP 08/01/17 02:55 Sodium 143 Potassium 3.5 Chloride 109 H Carbon Dioxide 27 BUN 11 Creatinine 0.54 L Glucose 90 Calcium 8.0 L - ABG Interpretation ABG results: PT/INR, D-dimer PT 12.0 Seconds (9.4-12.1) 07/25/17 11:39 - Impressions Impressions Chest/Abdomen X-ray 08/01/17 05:00 IMPRESSION: 1. Enteric tube extends into the proximal small bowel. 2. Moderate small bowel gaseous distention which appears mildly improved compared to the prior exam suggesting postsurgical adynamic ileus. D/ / 08/01/2017 07:46:49 Vic Jones MD / susan Interpreting Provider: Vic Jones MD - VTE Documentation of Mechanical Device: Intermittent pneumatic compression device Consult Discharge Plan - Plan Referrals: Jarek Jain MD [Primary Care Provider] - 08/03/17 2:45 pm <Yrn Lara T - Last Filed: 08/01/17 15:07> Date of Encounter: 08/01/17 - Assessment and plan (1) Small bowel obstruction Current Visit: Yes Status: Acute (2) COPD (chronic obstructive pulmonary disease) Current Visit: Yes Status: Chronic Qualifiers: COPD type: unspecified COPD Qualified Code(s): J44.9 - Chronic obstructive pulmonary disease, unspecified (3) DVT prophylaxis Current Visit: Yes Status: Acute (4) Hypertension Current Visit: Yes Status: Acute Qualifiers: Hypertension type: unspecified Qualified Code(s): I10 - Essential (primary ) hypertension - Time Spent With Patient Total time spent is greater than 50% in coordination of care (as documented) at patient's floor/unit and/or counseling patient: - Constitutional Vitals: Temp Pulse Resp BP Pulse Ox 98 F 69 16 168/94 97 08/01/17 11:46 08/01/17 11:46 08/01/17 11:46 08/01/17 11:46 08/01/17 11:46 Internal Medicine: Result - Labs CBC & Chem 7: 08/01/17 02:55 08/01/17 02:55 Labs: Short CBC 08/01/17 Range/Units 02:55 WBC 10.2 (4.3-11.1) K/mcL Hgb 12.5 L (12.9-16.9) g/dL Hct 38.2 (37.5-50.1) % Plt Count 269 (140-400) K/mcL Neutrophils # 6.9 (1.6-8.9) K/mcL BMP 08/01/17 02:55 Sodium 143 Potassium 3.5 Chloride 109 H Carbon Dioxide 27 BUN 11 Creatinine 0.54 L Glucose 90 Calcium 8.0 L - ABG Interpretation ABG results: PT/INR, D-dimer PT 12.0 Seconds (9.4-12.1) 07/25/17 11:39 - Impressions Impressions Chest/Abdomen X-ray 08/01/17 05:00 IMPRESSION: 1. Enteric tube extends into the proximal small bowel. 2. Moderate small bowel gaseous distention which appears mildly improved compared to the prior exam suggesting postsurgical adynamic ileus. D/ / 08/01/2017 07:46:49 Vic Jones MD / [email or web address] Interpreting Provider: Vic Jones MD - Attending Attestation I examined this patient and my medical decision-making was reviewed with the Resident Physician on 08/01/17. I agree with the documented findings, disposition and treatment plan as described except to the extent set forth below. Uncontrolled blood pressure, surgery will be taking over this patient's management. Consult medicine prn Rest as in resident physician's documentation
[2017-08-01] MEDS ORDERED: Ipratropium/Albuterol Neb 3 ML IH PRN (09:51)
[2017-08-01] MEDS: Pantoprazole 40 MG VIAL IVP SCH (10:43)
[2017-08-01] MEDS: amLODIPine 5 MG TABLET PO SCH (15:47)
[2017-08-01] MEDS: Metoclopramide 10 MG/2 ML VIAL IVP SCH (18:25)
[2017-08-02] MEDS: Metoclopramide 10 MG/2 ML VIAL IVP SCH ×5 (00:18→23:34)
[2017-08-02] MEDS: 0.9 % Sodium Chloride 1,000 ML IVC SCH ×2 (03:14→23:34)
[2017-08-02 05:25] LABS: BUN/Creatinine Ratio 17 (6-26); Blood Urea Nitrogen 9 mg/dL (8-23); Carbon Dioxide 26 mEq/L (23-29); Chloride 104 mEq/L (98-107); Glucose 96 mg/dL (70-105); Magnesium 1.8 mg/dL (1.6-2.6); Osmolality,Calculated 289 (280-300); Potassium 3.1 mEq/L (3.5-5.1); Sodium 140 mEq/L (136-145); eGFR For African Americans > 60 (> 60); eGFR For Non-African Americans > 60 (> 60)
[2017-08-02] MEDS: *HR* Heparin 5,000 UNIT/ML VIAL SQ SCH ×2 (06:12→17:03)
[2017-08-02] MEDS: amLODIPine 5 MG TABLET PO SCH (08:28)
[2017-08-02] MEDS: Pantoprazole 40 MG VIAL IVP SCH (08:29)
[2017-08-02] MEDS: Budesonide/Formoterol 160/4.5 MDI IH SCH ×2 (10:25→21:17)
--- NOTE | 2017-08-02 11:33 | General Surgery Progress Note ---
<Ruel Gray - Last Filed: 08/02/17 13:27> Date of Encounter: 08/02/17 Time of Encounter: 11:29 - Assessment and Plan (1) Small bowel obstruction Current Visit: Yes Status: Acute Mechanical SBO without mass or adhesion. States is passing gas. Has had bowel movements. No nausea, vomiting, bloating , or distention A.m. labs demonstrate no decrease in hemoglobin or recurrent leukocytosis. Plan: - POD#6 s/p ex-celiotomy relieving SBO - has had persistent post op ileus with dilatation sense - encouraged patient to ambulate TID halls; may shower - NG tube removed - clear liquid diet ordered - will reassess tolerance of clear liquid diet - potassium was 3.1 today; currently being corrected - other electrolytes within normal limits - monitor electrolytes in the morning; correct as needed - advanced diet as able - continue IVF for now (2) Dysuria Current Visit: Yes Status: Resolved Resolved (3) COPD (chronic obstructive pulmonary disease) Current Visit: Yes Status: Chronic Not dependent on O2 at home. No symptoms/signs of acute exacerbation. Qualifiers: COPD type: unspecified COPD Qualified Code(s): J44.9 - Chronic obstructive pulmonary disease, unspecified (4) Chest pain Current Visit: Yes Status: Resolved Negative biomarkers with resolved pain; unlikely ACS. - no further ACS-equivalent symptoms today - cont to monitor Qualifiers: Chest pain type: unspecified Qualified Code(s): R07.9 - Chest pain, unspecified (5) DVT prophylaxis Current Visit: Yes Status: Acute Mechanical, ambulate in halls Subjective Narrative: Continues to feel better today. No nausea, vomiting on the bloating. NG tube removed this morning. Patient anxious to advance diet. Objective Vital Signs - Last 8 Hours Temp Pulse Resp BP Pulse Ox 08/02/17 08:09 98.2 F 83 17 159/79 08/02/17 04:45 97.6 F 83 19 162/87 94 Intake and Output 08/01/17 08/02/17 08/02/17 23:59 07:59 15:59 Intake Total 0 / 0 1000 / 1000 Output Total 0 / 0 0 / 0 Balance 0 / 0 1000 / 1000 Intake: IV Fluids 1000 / 1000 0.9 % Sodium Chloride 1,000 ML 1000 / 1000 @ 50 mls/hr IVC .Q20H [facility] Rx#: [id number] Oral 0 / 0 0 / 0 Output: Urine 0 / 0 0 / 0 Other: Stool Size Moderate Stool Consistency loose Stool Color Brown # Voids 1 Weight 83.9 kg Blood Glucose* 84 91 80 Patient Weight 08/02/17 23:59 Weight 83.9 kg [facility]ITAL SIGNS: [facility] GENER[facility]: comfortably supine. NG tube in place and connected Guthrie bag. No acute distress. HEENT: Normocephalic, PER, EOMi, oropharynx pink/moist, no JVD noted. CV: RRR RESPIRATORY: CTAB without wheezes, rales, or rhonchi ABD: infrequent/quiet bowel sounds, soft, non-distended, non-tender INCISION: no signs of infection/dehiscence EXTREMITY: grossly normal motor function, no pedal edema; SCDs in place NEUROLOGIC EXAM: AOx3, obeys commands, no speech deficits. PSYCHIATRIC: normal mood and affect SKIN: no gross lesions, rashes, or skin changes - Labs 08/01/17 02:55 08/02/17 04:13 Diabetes panel 08/02/17 Range/Units 04:13 Sodium 140 (136-145) mEq/L Potassium 3.1 L (3.5-5.1) mEq/L Chloride 104 (98-107) mEq/L Carbon Dioxide 26 (23-29) mEq/L BUN 9 (8-23) mg/dL Creatinine 0.53 L (0.70-1.30) mg/dL Glucose 96 (70-105) mg/dL Calcium 8.0 L (8.6-10.3) mg/dL Calcium panel 08/02/17 Range/Units 04:13 Calcium 8.0 L (8.6-10.3) mg/dL Phosphorus 3.0 (2.7-4.5) mg/dL Pituitary panel 08/02/17 Range/Units 04:13 Sodium 140 (136-145) mEq/L Potassium 3.1 L (3.5-5.1) mEq/L Chloride 104 (98-107) mEq/L Carbon Dioxide 26 (23-29) mEq/L BUN 9 (8-23) mg/dL Creatinine 0.53 L (0.70-1.30) mg/dL Glucose 96 (70-105) mg/dL Calcium 8.0 L (8.6-10.3) mg/dL Adrenal panel 08/02/17 Range/Units 04:13 Sodium 140 (136-145) mEq/L Potassium 3.1 L (3.5-5.1) mEq/L Chloride 104 (98-107) mEq/L Carbon Dioxide 26 (23-29) mEq/L BUN 9 (8-23) mg/dL Creatinine 0.53 L (0.70-1.30) mg/dL Glucose 96 (70-105) mg/dL Calcium 8.0 L (8.6-10.3) mg/dL - VTE Documentation of Mechanical Device: Intermittent pneumatic compression device Consult Discharge Plan - Plan Referrals: Jarek Jain MD [Primary Care Provider] - 08/03/17 2:45 pm <Mihai Stevens - Last Filed: 08/03/17 06:46> Date of Encounter: 08/02/17 Objective Vital Signs - Last 8 Hours Temp Pulse Resp BP Pulse Ox 08/03/17 04:53 97.8 F 86 18 164/82 93 Intake and Output 08/02/17 08/02/17 08/03/17 15:59 23:59 07:59 Intake Total 420 / 420 1000 / 1000 Output Total 300 / 300 200 / 200 Balance 420 / 420 700 / 700 -200 / -200 Intake: IV Fluids 300 / 300 1000 / 1000 0.9 % Sodium Chloride 1,000 ML 1000 / 1000 @ 50 mls/hr IVC .Q20H [facility] Rx#: [id number] Potassium Chloride 10 mEq/100mL 300 / 300 10 meq In 100 ml @ 100 mls/hr IVPB Q1H [facility] Rx#:[id number] Oral 120 / 120 0 / 0 Output: Urine 300 / 300 200 / 200 Other: Meal Breakfast Percent of Meal Consumed 0% # Voids 1 Weight 86.9 kg Blood Glucose* 73 80 Patient Weight 08/03/17 23:59 Weight 86.9 kg - Labs 08/01/17 02:55 08/03/17 03:58 Diabetes panel 08/03/17 Range/Units 03:58 Sodium 144 (136-145) mEq/L Potassium 3.3 L (3.5-5.1) mEq/L Chloride 108 H (98-107) mEq/L Carbon Dioxide 25 (23-29) mEq/L BUN 7 L (8-23) mg/dL Creatinine 0.48 L (0.70-1.30) mg/dL Glucose 91 (70-105) mg/dL Calcium 7.8 L (8.6-10.3) mg/dL Calcium panel 08/03/17 Range/Units 03:58 Calcium 7.8 L (8.6-10.3) mg/dL Phosphorus 2.8 (2.7-4.5) mg/dL Pituitary panel 08/03/17 Range/Units 03:58 Sodium 144 (136-145) mEq/L Potassium 3.3 L (3.5-5.1) mEq/L Chloride 108 H (98-107) mEq/L Carbon Dioxide 25 (23-29) mEq/L BUN 7 L (8-23) mg/dL Creatinine 0.48 L (0.70-1.30) mg/dL Glucose 91 (70-105) mg/dL Calcium 7.8 L (8.6-10.3) mg/dL Adrenal panel 08/03/17 Range/Units 03:58 Sodium 144 (136-145) mEq/L Potassium 3.3 L (3.5-5.1) mEq/L Chloride 108 H (98-107) mEq/L Carbon Dioxide 25 (23-29) mEq/L BUN 7 L (8-23) mg/dL Creatinine 0.48 L (0.70-1.30) mg/dL Glucose 91 (70-105) mg/dL Calcium 7.8 L (8.6-10.3) mg/dL - Attending Attestation I examined this patient and my medical decision-making was reviewed with the Resident Physician. I agree with the documented findings, disposition and treatment plan as described except to the extent set forth below. I reviewed the above assessment and evaluation and agree with the above plan. Patient had several episodes of bowel movements and flatus. Placed NG tube to suction with no residual and have removed NG tube at the bedside. Will start clear liquids today.
[2017-08-03 05:27] LABS: BUN/Creatinine Ratio 15 (6-26); Blood Urea Nitrogen 7 mg/dL (8-23); Calcium 7.8 mg/dL (8.6-10.3); Carbon Dioxide 25 mEq/L (23-29); Chloride 108 mEq/L (98-107); Glucose 91 mg/dL (70-105); Magnesium 1.7 mg/dL (1.6-2.6); Osmolality,Calculated 296 (280-300); Phosphorous 2.8 mg/dL (2.7-4.5); Potassium 3.3 mEq/L (3.5-5.1); Sodium 144 mEq/L (136-145); eGFR For African Americans > 60 (> 60); eGFR For Non-African Americans > 60 (> 60)
[2017-08-03] MEDS: Budesonide/Formoterol 160/4.5 MDI IH SCH ×2 (07:47→19:46)
[2017-08-03] MEDS: *HR* Heparin 5,000 UNIT/ML VIAL SQ SCH ×2 (08:26→17:59)
[2017-08-03] MEDS: Metoclopramide 10 MG/2 ML VIAL IVP SCH ×2 (08:26→13:46)
--- NOTE | 2017-08-03 11:03 | General Surgery Progress Note ---
<Ruel Gray - Last Filed: 08/03/17 16:50> Date of Encounter: 08/03/17 Time of Encounter: 11:02 - Assessment and Plan (1) Small bowel obstruction Current Visit: Yes Status: Acute Mechanical SBO without mass or adhesion. Tolerated clear liquid diet with NG tube removed. No nausea/vomiting/bloating. Positive bowel movements & flatus. Plan: - POD#7 s/p ex-celiotomy relieving SBO on 07/27/17 - continue to ambulate - Full liquid diet today with Enlive Ensure; pt advised to pace intake and inform of discomfort/pain - continue to monitor lytes qAM and correct if needed; close attention to PO4 - further advancement of diet on daily basis - IVF to saline lock (2) COPD (chronic obstructive pulmonary disease) Current Visit: Yes Status: Chronic Not dependent on O2 at home. No symptoms/signs of acute exacerbation. No plan change. Qualifiers: COPD type: unspecified COPD Qualified Code(s): J44.9 - Chronic obstructive pulmonary disease, unspecified (3) Chest pain Current Visit: Yes Status: Resolved Negative biomarkers with resolved pain; unlikely ACS. - no further ACS-equivalent symptoms - cont to monitor Qualifiers: Chest pain type: unspecified Qualified Code(s): R07.9 - Chest pain, unspecified (4) DVT prophylaxis Current Visit: Yes Status: Acute Subcutaneous heparin; continue to encourage ambulation and halls. Subjective Narrative: Better than previous day. Denies nausea, vomiting, bloating. Has had several bowel movements. Plentiful flatus. Denies diarrhea. Afebrile overnight. Tolerated clear liquid diet yesterday without any provocation of symptoms. Apprehensive to advanced too quickly, however interested in advancing to full liquids today. Objective Vital Signs - Last 8 Hours Temp Pulse Resp BP Pulse Ox 08/03/17 07:17 98.5 F 73 18 161/92 91 08/03/17 04:53 97.8 F 86 18 164/82 93 Intake and Output 08/02/17 08/03/17 08/03/17 23:59 07:59 15:59 Intake Total 1000 / 1000 360 / 360 Output Total 300 / 300 200 / 200 Balance 700 / 700 -200 / -200 360 / 360 Intake: IV Fluids 1000 / 1000 0.9 % Sodium Chloride 1,000 ML 1000 / 1000 @ 50 mls/hr IVC .Q20H [facility] Rx#: [id number] Oral 0 / 0 360 / 360 Output: Urine 300 / 300 200 / 200 Other: Meal Breakfast Weight 86.9 kg Blood Glucose* 80 92 Patient Weight 08/03/17 23:59 Weight 86.9 kg [facility]ITAL SIGNS: [facility] GENER[facility]: seated in bedside chair. Appears comfortable. No acute distress. HEENT: Normocephalic, PER, EOMi, oropharynx pink/moist, no JVD noted. NG tube out since 08/02/2017. CV: RRR, distant auscultation. RESPIRATORY: distant lung sounds; CTAB without wheezes, rales, or rhonchi ABD: active bowel sounds, soft, non-distended, non-tender INCISION: no signs of infection/dehiscence EXTREMITY: grossly normal motor function, no pedal edema; SCDs in place NEUROLOGIC EXAM: AOx3, obeys commands, no speech deficits. PSYCHIATRIC: normal mood and affect SKIN: no gross lesions, rashes, or skin changes - Labs 08/01/17 02:55 08/03/17 03:58 Diabetes panel 08/03/17 Range/Units 03:58 Sodium 144 (136-145) mEq/L Potassium 3.3 L (3.5-5.1) mEq/L Chloride 108 H (98-107) mEq/L Carbon Dioxide 25 (23-29) mEq/L BUN 7 L (8-23) mg/dL Creatinine 0.48 L (0.70-1.30) mg/dL Glucose 91 (70-105) mg/dL Calcium 7.8 L (8.6-10.3) mg/dL Calcium panel 08/03/17 Range/Units 03:58 Calcium 7.8 L (8.6-10.3) mg/dL Phosphorus 2.8 (2.7-4.5) mg/dL Pituitary panel 08/03/17 Range/Units 03:58 Sodium 144 (136-145) mEq/L Potassium 3.3 L (3.5-5.1) mEq/L Chloride 108 H (98-107) mEq/L Carbon Dioxide 25 (23-29) mEq/L BUN 7 L (8-23) mg/dL Creatinine 0.48 L (0.70-1.30) mg/dL Glucose 91 (70-105) mg/dL Calcium 7.8 L (8.6-10.3) mg/dL Adrenal panel 08/03/17 Range/Units 03:58 Sodium 144 (136-145) mEq/L Potassium 3.3 L (3.5-5.1) mEq/L Chloride 108 H (98-107) mEq/L Carbon Dioxide 25 (23-29) mEq/L BUN 7 L (8-23) mg/dL Creatinine 0.48 L (0.70-1.30) mg/dL Glucose 91 (70-105) mg/dL Calcium 7.8 L (8.6-10.3) mg/dL - VTE Documentation of Mechanical Device: Intermittent pneumatic compression device Consult Discharge Plan - Plan Instructions: Laxative, Stool Softeners (By mouth), Ondansetron (By mouth), Chest Pain (DC), Chronic Obstructive Pulmonary Disease (DC), Exploratory Laparotomy (DC), Chronic Hypertension (DC), Bowel Obstruction (DC) Additional Instructions: Please review all discharge educational handouts. Your surgical appointment follow-up is with Susan Garnica CNP on 08/19/2017 at 8 AM. Take all medications as prescribed. Call Dr. Stevens's office if you have fever/chills/sweats/body aches, nausea, vomiting, constipation not relieved with meds you have been prescribed, significant abdominal pain after eating, continued blood in your stools or blackened stools, or signs of infection at your incision sites (includes increasing redness, increasing warmth, swelling, or pus). Avoid heavy lifting over 15lbs for next 6 weeks. Wound Care: shower with antibacterial soap; gently wash or allow water to passively run over surgical sites, avoid firm scrubbing of incisional site. May leave incision open to air or cover with a dry dressing for comfort. Tape to secure. Reinforce or change outer dressing as needed. Call your PCP for other concerns if any arise. Referrals: Susan Garnica CNP [Advanced Practice Nurse] - Jarek Jain MD [Primary Care Provider] - 08/03/17 2:45 pm Prescriptions: Ondansetron ODT [Zofran ODT] 4 mg SL Q6HR #16 tab.rapdis Docusate [Colace] 100 mg PO BID 30 Days #60 capsule <Mihai Stevens - Last Filed: 08/04/17 12:55> Date of Encounter: 08/03/17 Objective Vital Signs - Last 8 Hours Temp Pulse Resp BP Pulse Ox 08/04/17 10:41 97.8 F 109 19 124/89 92 08/04/17 07:06 98 F 68 17 92 Intake and Output 08/03/17 08/04/17 08/04/17 23:59 07:59 15:59 Intake Total 440 / 440 100 / 100 Output Total 0 / 0 0 / 0 Balance 440 / 440 100 / 100 0 / 0 Intake: Oral 440 / 440 100 / 100 Output: Urine 0 / 0 0 / 0 Other: Meal Dinner Breakfast Stool Size Moderate Stool Consistency formed Stool Color Green [place] # Voids 1 1 # Bowel Movements 1 5 Weight 82.2 kg Blood Glucose* 113 104 153 Patient Weight 08/04/17 23:59 Weight 82.2 kg - Labs 08/04/17 07:19 08/04/17 04:33 Diabetes panel 08/04/17 Range/Units 04:33 Sodium 139 (136-145) mEq/L Potassium 3.3 L (3.5-5.1) mEq/L Chloride 101 (98-107) mEq/L Carbon Dioxide 30 H (23-29) mEq/L BUN 5 L (8-23) mg/dL Creatinine 0.56 L (0.70-1.30) mg/dL Glucose 120 H (70-105) mg/dL Calcium 8.3 L (8.6-10.3) mg/dL Calcium panel 08/04/17 Range/Units 04:33 Calcium 8.3 L (8.6-10.3) mg/dL Phosphorus 2.9 (2.7-4.5) mg/dL Pituitary panel 08/04/17 Range/Units 04:33 Sodium 139 (136-145) mEq/L Potassium 3.3 L (3.5-5.1) mEq/L Chloride 101 (98-107) mEq/L Carbon Dioxide 30 H (23-29) mEq/L BUN 5 L (8-23) mg/dL Creatinine 0.56 L (0.70-1.30) mg/dL Glucose 120 H (70-105) mg/dL Calcium 8.3 L (8.6-10.3) mg/dL Adrenal panel 08/04/17 Range/Units 04:33 Sodium 139 (136-145) mEq/L Potassium 3.3 L (3.5-5.1) mEq/L Chloride 101 (98-107) mEq/L Carbon Dioxide 30 H (23-29) mEq/L BUN 5 L (8-23) mg/dL Creatinine 0.56 L (0.70-1.30) mg/dL Glucose 120 H (70-105) mg/dL Calcium 8.3 L (8.6-10.3) mg/dL - Attending Attestation I examined this patient and my medical decision-making was reviewed with the Resident Physician. I agree with the documented findings, disposition and treatment plan as described except to the extent set forth below. Review the above and agree with the above plan.
[2017-08-03] MEDS: Pantoprazole 40 MG VIAL IVP SCH (11:12)
[2017-08-03] MEDS: amLODIPine 5 MG TABLET PO SCH (11:16)
[2017-08-04 05:15] LABS: BUN/Creatinine Ratio 9 (6-26); Blood Urea Nitrogen 5 mg/dL (8-23); Calcium 8.3 mg/dL (8.6-10.3); Carbon Dioxide 30 mEq/L (23-29); Chloride 101 mEq/L (98-107); Glucose 120 mg/dL (70-105); Osmolality,Calculated 286 (280-300); Phosphorous 2.9 mg/dL (2.7-4.5); Potassium 3.3 mEq/L (3.5-5.1); Sodium 139 mEq/L (136-145); eGFR For African Americans > 60 (> 60); eGFR For Non-African Americans > 60 (> 60)
[2017-08-04] MEDS: *HR* Heparin 5,000 UNIT/ML VIAL SQ SCH (06:31)
--- NOTE | 2017-08-04 07:06 | General Surgery Progress Note ---
Date of Encounter: 08/04/17 Time of Encounter: 07:02 - Assessment and Plan (1) Small bowel obstruction Current Visit: Yes Status: Acute Mechanical SBO without mass or adhesion. Tolerated clear liquid diet with NG tube removed. No nausea/vomiting/bloating. Positive bowel movements & flatus. Plan: - POD#7 s/p ex-celiotomy relieving SBO on 07/27/17 - continue to ambulate - Full liquid diet today with Enlive Ensure; pt advised to pace intake and inform of discomfort/pain - continue to monitor lytes qAM and correct if needed; close attention to PO4 - further advancement of diet on daily basis - IVF to saline lock (2) COPD (chronic obstructive pulmonary disease) Current Visit: Yes Status: Chronic Not dependent on O2 at home. No symptoms/signs of acute exacerbation. No plan change. Qualifiers: COPD type: unspecified COPD Qualified Code(s): J44.9 - Chronic obstructive pulmonary disease, unspecified (3) Chest pain Current Visit: Yes Status: Resolved Negative biomarkers with resolved pain; unlikely ACS. - no further ACS-equivalent symptoms - cont to monitor Qualifiers: Chest pain type: unspecified Qualified Code(s): R07.9 - Chest pain, unspecified (4) DVT prophylaxis Current Visit: Yes Status: Acute Subcutaneous heparin; continue to encourage ambulation and halls. Subjective Narrative: RN expressed concern of bright red blood saturating toilet last night. Stated 5 of such episodes where pt would have what felt like a BM, but only blood would produce; no solid or apparent stool contents. RN examined pt, but perianal region was apparently without evidence of bleeding source. Dr. Heredia informed by RN during PM hours of 08/03/17. Objective Vital Signs - Last 8 Hours Temp Pulse Resp BP Pulse Ox 08/04/17 03:00 98.3 F 84 17 158/88 94 Intake and Output 08/03/17 08/03/17 08/04/17 15:59 23:59 07:59 Intake Total 900 / 900 440 / 440 100 / 100 Output Total 475 / 475 Balance 425 / 425 440 / 440 100 / 100 Intake: IV Fluids 300 / 300 Potassium Chloride 10 mEq/100mL 300 / 300 10 meq In 100 ml @ 100 mls/hr IVPB Q1H [facility] Rx#:[id number] Oral 600 / 600 440 / 440 100 / 100 Output: Urine 475 / 475 Other: Meal Lunch Dinner Stool Size Moderate Stool Consistency formed Stool Color Green [place] # Voids 1 1 # Bowel Movements 1 5 Weight 82.2 kg Blood Glucose* 120 113 Patient Weight 08/04/17 23:59 Weight 82.2 kg - Labs 08/01/17 02:55 08/04/17 04:33 Diabetes panel 08/04/17 Range/Units 04:33 Sodium 139 (136-145) mEq/L Potassium 3.3 L (3.5-5.1) mEq/L Chloride 101 (98-107) mEq/L Carbon Dioxide 30 H (23-29) mEq/L BUN 5 L (8-23) mg/dL Creatinine 0.56 L (0.70-1.30) mg/dL Glucose 120 H (70-105) mg/dL Calcium 8.3 L (8.6-10.3) mg/dL Calcium panel 08/04/17 Range/Units 04:33 Calcium 8.3 L (8.6-10.3) mg/dL Phosphorus 2.9 (2.7-4.5) mg/dL Pituitary panel 08/04/17 Range/Units 04:33 Sodium 139 (136-145) mEq/L Potassium 3.3 L (3.5-5.1) mEq/L Chloride 101 (98-107) mEq/L Carbon Dioxide 30 H (23-29) mEq/L BUN 5 L (8-23) mg/dL Creatinine 0.56 L (0.70-1.30) mg/dL Glucose 120 H (70-105) mg/dL Calcium 8.3 L (8.6-10.3) mg/dL Adrenal panel 08/04/17 Range/Units 04:33 Sodium 139 (136-145) mEq/L Potassium 3.3 L (3.5-5.1) mEq/L Chloride 101 (98-107) mEq/L Carbon Dioxide 30 H (23-29) mEq/L BUN 5 L (8-23) mg/dL Creatinine 0.56 L (0.70-1.30) mg/dL Glucose 120 H (70-105) mg/dL Calcium 8.3 L (8.6-10.3) mg/dL - VTE Documentation of Mechanical Device: Intermittent pneumatic compression device Consult Discharge Plan - Plan Referrals: Jarek Jain MD [Primary Care Provider] - 08/03/17 2:45 pm
[2017-08-04 07:45] LABS: Basophils # 0.1 K/mcL (0.0-0.2); Basophils % 0.7 %; Eosinophils # 0.6 K/mcL (0.0-0.6); Eosinophils % 6.3 %; Hematocrit 37.2 % (37.5-50.1); Hemoglobin 12.7 g/dL (12.9-16.9); Immature Granulocytes % 1.8 % (0-4); Lymphocytes # 1.8 K/mcL (0.6-4.6); Mean Corpuscular HGB Conc 34.1 g/dL (31.6-35.5); Mean Corpuscular Hemoglobin 31.7 pg (28.0-33.3); Mean Corpuscular Volume 92.8 fL (83.0-100.0); Mean Platelet Volume 8.5 fL (9.4-12.4); Monocytes # 0.8 K/mcL (0.0-1.3); Monocytes % 7.8 %; Neutrophils # 6.4 K/mcL (1.6-8.9); Platelet Count 289 K/mcL (140-400); Red Blood Count 4.01 M/mcL (4.19-5.50); Red Cell Distribution Width 13.2 % (11.5-14.5); Segmented Neutrophils % 65.4 %
[2017-08-04] MEDS: Budesonide/Formoterol 160/4.5 MDI IH SCH (07:45)
[2017-08-04] MEDS: amLODIPine 5 MG TABLET PO SCH (09:50)
[2017-08-04] MEDS: Pantoprazole 40 MG VIAL IVP SCH (09:50)
--- NOTE | 2017-08-04 10:07 | Discharge Summary ---
<Ruel Gray - Last Filed: 08/04/17 10:40> Orders not resulted at time of discharge: Pending orders 08/05/17 04:00 Basic Metabolic Panel AM 0400 CBC [Complete Blood Count] [HEME] AM 0400 Magnesium AM 0400 Phosphorous AM 0400 Date of Encounter: 08/04/17 Time of Encounter: 09:45 - Discharge Diagnosis (1) Small bowel obstruction Priority: Primary Status: Resolved Comments: Mechanical small bowel obstruction without masses or adhesions. Failed conservative measures initially. Spontaneously resolved with exploratory laparotomy. Slow return of normal bowel function. Improving and tolerating . (2) COPD (chronic obstructive pulmonary disease) Priority: Secondary Status: Chronic Qualifiers: COPD type: unspecified COPD Qualified Code(s): J44.9 - Chronic obstructive pulmonary disease, unspecified (3) Chest pain Priority: Secondary Status: Resolved Qualifiers: Chest pain type: unspecified Qualified Code(s): R07.9 - Chest pain, unspecified General Surgery Exam Initial Vital Signs Temp Pulse Resp BP Pulse Ox 98.2 F 92 16 145/82 93 07/25/17 08:16 07/25/17 08:16 07/25/17 08:16 07/25/17 08:16 07/25/17 08:16 VITAL SIGNS: Reviewed. See [facility] GENERAL: reclined in bed. Visitor present. Appears comfortable. No acute distress. HEENT: Normocephalic, PER, EOMi, oropharynx pink/moist, no JVD noted. NG tube out since 08/02/2017. CV: RRR, distant auscultation. RESPIRATORY: distant lung sounds; CTAB without wheezes, rales, or rhonchi ABD: active bowel sounds, soft, non-distended, non-tender INCISION: no signs of infection/dehiscence EXTREMITY: grossly normal motor function, no pedal edema; SCDs in place NEUROLOGIC EXAM: AOx3, obeys commands, no speech deficits. PSYCHIATRIC: normal mood and affect SKIN: no gross lesions, rashes, or skin changes - Hospital Course Hospital course: Mr. Barton is a 72 year old male admitted 07/24/17 for right-sided abdominal pain that, though was chronic, has become acutely severe. CT at [place] [facility] demonstrated small bowel obstruction with transition point. Initially placed NG and NPO, but conservative measures failed to relieve symptoms; exploratory laparotomy performed on 07/27/2017 with spontaneous resolution cannot bowel; no masses adhesions inducing obstruction, nor signs of strangulated/necrotic bowel segments. In G2 maintained in postop. With worsening abdominal distention. NG initially on wall seal, however quickly changed to gravity suction. Tempted clears early on, however patient had worsening of symptoms. Overall, patient has had slow return of bowel function with recurrent relapsing and remitting abdominal bloating discomfort. Several interim imaging studies demonstrated persistent small bowel dilatation with gradual improvement on a sequential basis. Ultimately, NG tube was removed on 08/02/2017; patient gradually advanced from limited clearance, to clears, the falls, and ultimately to soft diet today and has tolerated slow progression of data over the last 48 hours. No returns of loading abdominal discomfort. Plentiful flatus and bowel movements. Notable events: On initial admission with peak severity of abdominal pain, patient did have reported chest pain which was rapidly ruled out with a series of cardiac biomarkers and EKG. Patient did have remote dysuria and had UA demonstrating concentration likely representing overall dehydrated status; spontaneous symptomatic resolution. Patient did, on 08/03/2017, have several bowel movements with gross blood; given recent colonoscopy, nature of exploratory laparotomy, and frequency of bowel movements plus external hemorrhoids, feel that this most likely represents bleeding external hemorrhoid from excessive wiping; hemoglobin stable on date of discharge. Overall, feel patient is appropriate home discharge today given that he has had steady improvement over the last 48-72 hours. Patient is eating with assuring progression and absence of bowel provocation. Patient comfortable with plan to discharge and anxious to do so. Appropriate follow-up has been made with general surgery clinic. Return precautions discussed with patient. Information and all discussions provided in written form and all questions were answered. - Time Spent with Patient Total time spent providing and/or coordinating discharge services: - Discharge Medications Prescriptions: Ondansetron ODT [Zofran ODT] 4 mg SL Q6HR #16 tab.rapdis Docusate [Colace] 100 mg PO BID 30 Days #60 capsule Home Medications: Fluticasone/Salmeterol [Advair 500-50 Diskus] 1 puff IH Q12H 02/23/17 [History] Saw [place] Fruit [Saw [place]] 450 mg PO DAILY 02/23/17 [History] Albuterol Sulfate [Albuterol Inhaler] 2 puff IH Q6HR PRN 07/25/17 [History] Aspirin [Lo-Dose Aspirin EC] 81 mg PO DAILY 07/25/17 [History] Docusate [Colace] 100 mg PO BID 30 Days #60 capsule 08/04/17 [Rx] Ondansetron ODT [Zofran ODT] 4 mg SL Q6HR #16 tab.rapdis 08/04/17 [Rx] Allergies/Adverse Reactions: 3 Allergy/AdvReac Type Severity Reaction Status Date / Time No Known Allergies Allergy Verified 07/25/17 00:26 Date of admission: 07/26/17 12:53 Primary care physician: Jarek Jain MD Consults: 07/25/17 11:20 Consult to Nutrition [CONS] Routine Comment: Consulting Provider: NUTRITION Reason for Dietary Consult: MST Score 07/25/17 11:23 Consult to Surgery [CONS] Routine Consulting Provider: [facility] Reason for Consult: SBO Call Completed: Yes Discharging clinician: Ruel Gray Anticipated date of discharge: 08/04/17 Labs on day of discharge: Labs from last 24 hours 08/04/17 08/04/17 08/03/17 07:19 04:33 19:21 WBC 9.7 RBC 4.01 L Hgb 12.7 L Hct 37.2 L MCV 92.8 MCH 31.7 MCHC 34.1 RDW 13.2 Plt Count 289 MPV 8.5 L Immature Gran % 1.8 Seg Neutrophils % 65.4 Lymphocytes % 18.0 Monocytes % 7.8 Eosinophils % 6.3 Basophils % 0.7 Neutrophils # 6.4 Lymphocytes # 1.8 Monocytes # 0.8 Eosinophils # 0.6 Basophils # 0.1 Sodium 139 Potassium 3.3 L Chloride 101 Carbon Dioxide 30 H BUN 5 L Creatinine 0.56 L Est GFR ( Amer) > 60 Est GFR (Non-Af Amer) > 60 BUN/Creatinine Ratio 9 Glucose 120 H POC Glucose 113 H Calculated Osmolality 286 Calcium 8.3 L Phosphorus 2.9 Magnesium 2.0 08/03/17 08/03/17 08/03/17 16:33 11:06 07:19 WBC RBC Hgb Hct MCV MCH MCHC RDW Plt Count MPV Immature Gran % Seg Neutrophils % Lymphocytes % Monocytes % Eosinophils % Basophils % Neutrophils # Lymphocytes # Monocytes # Eosinophils # Basophils # Sodium Potassium Chloride Carbon Dioxide BUN Creatinine Est GFR ( Amer) Est GFR (Non-Af Amer) BUN/Creatinine Ratio Glucose POC Glucose 113 H 120 H 92 Calculated Osmolality Calcium Phosphorus Magnesium 08/02/17 20:34 WBC RBC Hgb Hct MCV MCH MCHC RDW Plt Count MPV Immature Gran % Seg Neutrophils % Lymphocytes % Monocytes % Eosinophils % Basophils % Neutrophils # Lymphocytes # Monocytes # Eosinophils # Basophils # Sodium Potassium Chloride Carbon Dioxide BUN Creatinine Est GFR ( Amer) Est GFR (Non-Af Amer) BUN/Creatinine Ratio Glucose POC Glucose 80 Calculated Osmolality Calcium Phosphorus Magnesium - Impressions ITS Impressions Echocardiogram 07/25/17 11:48 Impressions: LVEF 60-65%. Mild left ventricular diastolic dysfunction. Normal right ventricular structure and function. No significant valvular dysfunction. No pulmonary hypertension. Left Ventricular Wall Motion: Rest Echo Findings All wall segments showed normal motion. Findings: Study Quality * Technically adequate exam. ECG Findings * Normal sinus rhythm. Left Ventricle * LVEF 60-65%. * Normal LV chamber size, wall thickness and function. * Mild left ventricular diastolic dysfunction. Right Ventricle * Normal right ventricular structure and function. Left Atrium * Normal left atrial size. Right Atrium * Normal right atrial size. Aortic Valve * No aortic regurgitation. * Trileaflet aortic valve. * No aortic stenosis. Mitral Valve * No mitral regurgitation. * Normal mitral valve structure. * No mitral stenosis. Tricuspid Valve * Trace tricuspid regurgitation. * Normal tricuspid valve structure. * Estimated RA pressure is 3 mmHg. * Estimated RVSP is 32 mmHg. * No pulmonary hypertension. Pulmonic Valve * Pulmonic valve is not well visualized. * No pulmonic stenosis. * No pulmonic regurgitation. Pulmonary Artery * Pulmonary artery not well visualized. Aorta * Normally sized aortic root. Pericardium * There is no pericardial effusion present. Interatrial Septum * No evidence of PFO by color Doppler. IVC * Normal IVC dimensions and inspiratory collapse. KUB X-Ray 07/25/17 13:29 IMPRESSION: Nasogastric tube in appropriate position. Findings concerning for small bowel obstruction. D/ / 07/25/2017 21:25:14 Balta Gates MD / [email or web address] Interpreting Provider: Balta Gates MD Chest/Abdomen X-ray 07/27/17 06:00 IMPRESSION: 1. Enteric tube with the tip and side port projecting in the region the gastric fundus. 2. Dilated air-filled loops of small bowel throughout the abdomen compatible with a small bowel obstruction. 3. No acute cardiopulmonary abnormality identified. D/ / Medhat Shaw MD / Medhat Shaw MD Interpreting Provider: Medhat Shaw MD Chest/Abdomen X-ray 07/30/17 13:38 IMPRESSION: 1. Persistence of multiple moderately to severely dilated small bowel loops potentially due to persistent partial obstruction. However, this could also represent ileus given interim surgery. 2. No acute cardiopulmonary process. D/ / Jose Roberto Fuentes MD / Jose Roberto Fuentes MD Interpreting Provider: Jose Roberto Fuentes MD Chest/Abdomen X-ray 08/01/17 05:00 IMPRESSION: 1. Enteric tube extends into the proximal small bowel. 2. Moderate small bowel gaseous distention which appears mildly improved compared to the prior exam suggesting postsurgical adynamic ileus. D/ / 08/01/2017 07:46:49 Vic Jones MD / susan Interpreting Provider: Vic Jones MD X-Ray 08/01/17 11:52 IMPRESSION: NG tube is in place with tip at the level of the gastric cardia, side-port about 8 cm superior to the esophagogastric junction level. Only the most superior aspect of the abdomen is included in the field of view with nonspecific gas distended small bowel loops measuring 4 cm suggesting adynamic ileus following surgery. D/ / Paolo Guthrie / Paolo Guthrie Interpreting Provider: Paolo Guthrie - Patient Status Disposition: Home, Self-Care Condition: Good Functional capacity at discharge: independent ambulation Overall status at discharge: patient is progressing back to baseline - Discharge Instructions Instructions: Laxative, Stool Softeners (By mouth), Ondansetron (By mouth), Chest Pain (DC), Chronic Obstructive Pulmonary Disease (DC), Exploratory Laparotomy (DC), Chronic Hypertension (DC), Bowel Obstruction (DC) Follow Up With: Jarek Jain MD [Primary Care Provider] - 08/03/17 2:45 pm Susan Garnica CNP [Advanced Practice Nurse] - Additional Instructions: Please review all discharge educational handouts. Your surgical appointment follow-up is with Susan Garnica CNP on 08/19/2017 at 8 AM. Take all medications as prescribed. Call Dr. Stevens's office if you have fever/chills/sweats/body aches, nausea, vomiting, constipation not relieved with meds you have been prescribed, significant abdominal pain after eating, continued blood in your stools or blackened stools, or signs of infection at your incision sites (includes increasing redness, increasing warmth, swelling, or pus). Avoid heavy lifting over 15lbs for next 6 weeks. Wound Care: shower with antibacterial soap; gently wash or allow water to passively run over surgical sites, avoid firm scrubbing of incisional site. May leave incision open to air or cover with a dry dressing for comfort. Tape to secure. Reinforce or change outer dressing as needed. Call your PCP for other concerns if any arise. - Diet and Activity Activity: other (please observe 15 lb weight limit) Diet: advance to your usual diet <Mihai Stevens - Last Filed: 08/05/17 10:04> Date of Encounter: 08/05/17 General Surgery Exam Initial Vital Signs Temp Pulse Resp BP Pulse Ox 98.2 F 92 16 145/82 93 07/25/17 08:16 07/25/17 08:16 07/25/17 08:16 07/25/17 08:16 07/25/17 08:16 - Hospital Course Hospital course: Mr. Barton is a 72 year old male - Time Spent with Patient Total time spent providing and/or coordinating discharge services: Date of admission: 07/26/17 12:53 Primary care physician: Jarek Jain MD Consults: 07/25/17 11:20 Consult to Nutrition [CONS] Routine Comment: Consulting Provider: NUTRITION Reason for Dietary Consult: MST Score 07/25/17 11:23 Consult to Surgery [CONS] Routine Consulting Provider: [facility] Reason for Consult: SBO Call Completed: Yes Labs on day of discharge: Labs from last 24 hours 08/04/17 08/04/17 10:44 07:09 POC Glucose 153 H 104 H - Impressions ITS Impressions Echocardiogram 07/25/17 11:48 Impressions: LVEF 60-65%. Mild left ventricular diastolic dysfunction. Normal right ventricular structure and function. No significant valvular dysfunction. No pulmonary hypertension. Left Ventricular Wall Motion: Rest Echo Findings All wall segments showed normal motion. Findings: Study Quality * Technically adequate exam. ECG Findings * Normal sinus rhythm. Left Ventricle * LVEF 60-65%. * Normal LV chamber size, wall thickness and function. * Mild left ventricular diastolic dysfunction. Right Ventricle * Normal right ventricular structure and function. Left Atrium * Normal left atrial size. Right Atrium * Normal right atrial size. Aortic Valve * No aortic regurgitation. * Trileaflet aortic valve. * No aortic stenosis. Mitral Valve * No mitral regurgitation. * Normal mitral valve structure. * No mitral stenosis. Tricuspid Valve * Trace tricuspid regurgitation. * Normal tricuspid valve structure. * Estimated RA pressure is 3 mmHg. * Estimated RVSP is 32 mmHg. * No pulmonary hypertension. Pulmonic Valve * Pulmonic valve is not well visualized. * No pulmonic stenosis. * No pulmonic regurgitation. Pulmonary Artery * Pulmonary artery not well visualized. Aorta * Normally sized aortic root. Pericardium * There is no pericardial effusion present. Interatrial Septum * No evidence of PFO by color Doppler. IVC * Normal IVC dimensions and inspiratory collapse. KUB X-Ray 07/25/17 13:29 IMPRESSION: Nasogastric tube in appropriate position. Findings concerning for small bowel obstruction. D/ / 07/25/2017 21:25:14 Balta Gates MD / nitishrtapt Interpreting Provider: Balta Gates MD Chest/Abdomen X-ray 07/27/17 06:00 IMPRESSION: 1. Enteric tube with the tip and side port projecting in the region the gastric fundus. 2. Dilated air-filled loops of small bowel throughout the abdomen compatible with a small bowel obstruction. 3. No acute cardiopulmonary abnormality identified. D/ / Medhat Shaw MD / Medhat Shaw MD Interpreting Provider: Medhat Shaw MD Chest/Abdomen X-ray 07/30/17 13:38 IMPRESSION: 1. Persistence of multiple moderately to severely dilated small bowel loops potentially due to persistent partial obstruction. However, this could also represent ileus given interim surgery. 2. No acute cardiopulmonary process. D/ / Jose Roberto Fuentes MD / Jose Roberto Fuentes MD Interpreting Provider: Jose Roberto Fuentes MD Chest/Abdomen X-ray 08/01/17 05:00 IMPRESSION: 1. Enteric tube extends into the proximal small bowel. 2. Moderate small bowel gaseous distention which appears mildly improved compared to the prior exam suggesting postsurgical adynamic ileus. D/ / 08/01/2017 07:46:49 Vic Jones MD / susan Interpreting Provider: Vic Jones MD X-Ray 08/01/17 11:52 IMPRESSION: NG tube is in place with tip at the level of the gastric cardia, side-port about 8 cm superior to the esophagogastric junction level. Only the most superior aspect of the abdomen is included in the field of view with nonspecific gas distended small bowel loops measuring 4 cm suggesting adynamic ileus following surgery. D/ / Paolo Guthrie / Paolo Guthrie Interpreting Provider: Paolo Guthrie - Attending Attestation I examined this patient and my medical decision-making was reviewed with the Resident Physician. I agree with the documented findings, disposition and treatment plan as described except to the extent set forth below. I reviewed the above and agree with the above plan. Patient is tolerating a soft food diet. We will make sure a stool softeners as well as pain medication and follow-up in our office in 2 weeks.
[2017-08-04 10:45] VITALS: BP 124/89
== END 2017-08-04 14:45 | disposition home or self-care (01) | DRG 358 ==
LOC: 2NENU → SUATTDRO 08:12
PROVIDERS: ADMIT Internal Medicine; ATTEND Internal Medicine

== ENCOUNTER 2019-03-16 06:02 | Inpatient (IN) ==
[2019-03-16] MEDS ORDERED: Naloxone 0.4 MG/ML INJ IVP PRN (09:14)
[2019-03-16 12:20] LABS: Adenovirus Not Detected (Not Detect); Coronavirus 229E Not Detected (Not Detect); Coronavirus HKU1 Not Detected (Not Detect); Coronavirus NL63 Not Detected (Not Detect); Coronavirus OC43 Not Detected (Not Detect); Human Metapneumovirus Not Detected (Not Detect); Human Rhinovirus/Enterovirus Not Detected (Not Detect)
[2019-03-16 12:24] LABS: Bordetella Pertussis Not Detected (Not Detect); Influenza A Subtype 2009 H1 DETECTED (Not Detect); Influenza A Untypeable Not Detected (Not Detect); Influenza B Not Detected (Not Detect); Parainfluenza Virus 1 Not Detected (Not Detect); Parainfluenza Virus 2 Not Detected (Not Detect); Parainfluenza Virus 3 Not Detected (Not Detect); Parainfluenza Virus 4 Not Detected (Not Detect); Respiratory Syncytial Virus Not Detected (Not Detect)
[2019-03-16 12:25] LABS: Chlamydophila pneumoniae Not Detected (Not Detect); Mycoplasma pneumoniae Not Detected (Not Detect)
[2019-03-16] MEDS ORDERED: Ipratropium/Albuterol Neb 3 ML IH PRN (14:52)
[2019-03-16] MEDS: Budesonide/Formoterol 160/4.5 1 PUFF INH IH SCH ×2 (15:22→21:31)
[2019-03-16] MEDS: Ipratropium/Albuterol Neb 3 ML IH SCH ×3 (15:37→21:31)
[2019-03-16] MEDS: MethylPREDNISolone 40 MG/ML VIAL IVP SCH (16:15)
[2019-03-16] MEDS ORDERED: *HR* Heparin 5,000 UNIT/ML VIAL IVP PRN ×2 (22:24)
[2019-03-16] MEDS ORDERED: *HR* Heparin 5,000 UNIT/ML VIAL IVP ONE (22:24)
[2019-03-16] MEDS ORDERED: Heparin 25,000 UNIT/250 ML D5W 25,000 UNIT/250 ML IV.SOLN IVC SCH (22:30)
[2019-03-16 23:23] LABS: Hematocrit 44.6 % (37.5-50.1); Hemoglobin 15.2 g/dL (12.9-16.9); Mean Corpuscular HGB Conc 34.1 g/dL (31.6-35.5); Mean Corpuscular Hemoglobin 30.9 pg (28.0-33.3); Mean Corpuscular Volume 90.7 fL (83.0-100.0); Mean Platelet Volume 8.5 fL (9.4-12.4); Platelet Count 217 K/mcL (140-400); Red Blood Count 4.92 M/mcL (4.19-5.50); Red Cell Distribution Width 13.2 % (11.5-14.5); White Blood Count 12.4 K/mcL (4.3-11.1)
[2019-03-17] MEDS: Ipratropium/Albuterol Neb 3 ML IH SCH ×4 (04:24→22:26)
[2019-03-17] MEDS: MethylPREDNISolone 40 MG/ML VIAL IVP SCH ×2 (05:07→17:56)
[2019-03-17 06:02] LABS: INR 1.1; Prothrombin Time 12.3 Seconds (9.4-12.1)
[2019-03-17] MEDS: cefTRIAXone 1,000 MG in Water for inj. (sterile) 10 ML IVP SCH (08:42)
[2019-03-17] MEDS ORDERED: NON-FORMULARY MEDICATION 1 EACH EACH (Biotin 1 MG) PO SCH (09:00)
[2019-03-17] MEDS: Budesonide/Formoterol 160/4.5 1 PUFF INH IH SCH ×2 (10:32→22:26)
[2019-03-17] MEDS: *HR* Enoxaparin 40 MG/0.4 ML SYRINGE SQ SCH (13:48)
[2019-03-18 02:31] LABS: Hematocrit 43.4 % (37.5-50.1); Hemoglobin 14.7 g/dL (12.9-16.9); Mean Corpuscular HGB Conc 33.9 g/dL (31.6-35.5); Mean Corpuscular Volume 91.6 fL (83.0-100.0); Mean Platelet Volume 8.9 fL (9.4-12.4); Platelet Count 290 K/mcL (140-400); Red Blood Count 4.74 M/mcL (4.19-5.50); Red Cell Distribution Width 13.2 % (11.5-14.5); White Blood Count 17.3 K/mcL (4.3-11.1)
[2019-03-18 03:08] LABS: BUN/Creatinine Ratio 26 (6-26); Blood Urea Nitrogen 18 mg/dL (8-23); Calcium 9.2 mg/dL (8.6-10.3); Carbon Dioxide 29 mEq/L (23-29); Chloride 102 mEq/L (98-107); Glucose 150 mg/dL (70-105); Magnesium 2.3 mg/dL (1.6-2.6); Osmolality,Calculated 285 (280-300); Potassium 3.8 mEq/L (3.5-5.1); Sodium 135 mEq/L (136-145); Troponin I 0.43 ng/mL (< 0.04); eGFR For African Americans > 60 (> 60); eGFR For Non-African Americans > 60 (> 60)
[2019-03-18] MEDS: Ipratropium/Albuterol Neb 3 ML IH SCH ×4 (04:01→21:41)
[2019-03-18] MEDS: MethylPREDNISolone 40 MG/ML VIAL IVP SCH ×2 (05:16→17:07)
[2019-03-18] MEDS: cefTRIAXone 1,000 MG in Water for inj. (sterile) 10 ML IVP SCH (09:06)
[2019-03-18] MEDS: *HR* Enoxaparin 40 MG/0.4 ML SYRINGE SQ SCH (09:11)
[2019-03-18] MEDS: Budesonide/Formoterol 160/4.5 1 PUFF INH IH SCH ×2 (09:18→21:40)
[2019-03-19] MEDS: Ipratropium/Albuterol Neb 3 ML IH SCH ×4 (04:13→21:33)
[2019-03-19] MEDS: MethylPREDNISolone 40 MG/ML VIAL IVP SCH (05:37)
[2019-03-19] MEDS: Budesonide/Formoterol 160/4.5 1 PUFF INH IH SCH ×2 (09:59→21:32)
[2019-03-19] MEDS: cefTRIAXone 1,000 MG in Water for inj. (sterile) 10 ML IVP SCH (10:52)
[2019-03-19] MEDS: *HR* Enoxaparin 40 MG/0.4 ML SYRINGE SQ SCH (10:53)
[2019-03-19] MEDS: predniSONE 20 MG TABLET PO SCH (18:39)
[2019-03-20] MEDS: Ipratropium/Albuterol Neb 3 ML IH SCH (04:01)
[2019-03-20 06:59] VITALS: BP 150/91
[2019-03-20] MEDS: *HR* Enoxaparin 40 MG/0.4 ML SYRINGE SQ SCH (09:47)
[2019-03-20] MEDS: predniSONE 20 MG TABLET PO SCH (09:47)
[2019-03-20] MEDS: cefTRIAXone 1,000 MG in Water for inj. (sterile) 10 ML IVP SCH (09:49)
[2019-03-20] MEDS: Budesonide/Formoterol 160/4.5 1 PUFF INH IH SCH (10:15)
== END 2019-03-20 16:30 | disposition home or self-care (01) | DRG 193 ==
LOC: 3BNU → SUATTDRO 07:27
PROVIDERS: ADMIT Internal Medicine; ATTEND Internal Medicine

== ENCOUNTER 2020-10-08 03:28 | Inpatient (IN) ==
[2020-10-08] MEDS ORDERED: Naloxone 0.4 MG/ML INJ IVP PRN (10:42)
[2020-10-08] MEDS ORDERED: Albuterol 2.5 MG/3 ML NEBULIZER IH PRN (13:26)
[2020-10-08] MEDS: methylPREDNISolone 125 MG/2 ML VIAL IVP SCH ×2 (15:16→23:40)
[2020-10-08] MEDS: Azithromycin 250 MG TABLET PO SCH (15:18)
[2020-10-08] MEDS: Ipratropium/Albuterol Neb 3 ML IH SCH ×4 (15:30→23:04)
[2020-10-08] MEDS: *HR* Heparin 5,000 UNIT/ML VIAL SQ SCH (17:53)
[2020-10-08] MEDS: Budesonide/Formoterol 160/4.5 1 PUFF INH IH SCH (20:02)
[2020-10-08 22:11] LABS: Adenovirus Not Detected (Not Detect); Bordetella Pertussis Not Detected (Not Detect); Chlamydophila pneumoniae Not Detected (Not Detect); Coronavirus 229E Not Detected (Not Detect); Coronavirus HKU1 Not Detected (Not Detect); Coronavirus NL63 Not Detected (Not Detect); Coronavirus OC43 Not Detected (Not Detect); Human Metapneumovirus Not Detected (Not Detect); Human Rhinovirus/Enterovirus Not Detected (Not Detect); Influenza A Subtype 2009 H1 Not Detected (Not Detect); Influenza B Not Detected (Not Detect); Mycoplasma pneumoniae Not Detected (Not Detect); Parainfluenza Virus 1 Not Detected (Not Detect); Parainfluenza Virus 2 Not Detected (Not Detect); Parainfluenza Virus 3 DETECTED (Not Detect); Parainfluenza Virus 4 Not Detected (Not Detect); Respiratory Syncytial Virus Not Detected (Not Detect); SARS-CoV-2 Not Detected (Not Detect)
[2020-10-09 03:46] LABS: Basophils % 0.2 %; Hematocrit 48.5 % (37.5-50.1); Hemoglobin 15.3 g/dL (12.9-16.9); Immature Granulocytes % 0.6 % (0-4); Lymphocytes # 0.9 K/mcL (0.6-4.6); Lymphocytes % 7.8 %; Mean Corpuscular HGB Conc 31.5 g/dL (31.6-35.5); Mean Corpuscular Hemoglobin 30.2 pg (28.0-33.3); Mean Corpuscular Volume 95.7 fL (83.0-100.0); Mean Platelet Volume 9.6 fL (9.4-12.4); Monocytes # 0.6 K/mcL (0.0-1.3); Monocytes % 5.4 %; Neutrophils # 10.2 K/mcL (1.6-8.9); Platelet Count 174 K/mcL (140-400); Red Blood Count 5.07 M/mcL (4.19-5.50); Red Cell Distribution Width 13.5 % (11.5-14.5); White Blood Count 11.9 K/mcL (4.3-11.1)
[2020-10-09 04:01] LABS: BUN/Creatinine Ratio 28 (6-26); Blood Urea Nitrogen 22 mg/dL (8-23); Calcium 9.2 mg/dL (8.6-10.3); Carbon Dioxide 25 mEq/L (23-29); Chloride 98 mEq/L (98-107); Glucose 152 mg/dL (70-105); Osmolality,Calculated 282 (280-300); Potassium 4.7 mEq/L (3.5-5.1); Sodium 133 mEq/L (136-145); eGFR For African Americans > 60 (> 60); eGFR For Non-African Americans > 60 (> 60)
[2020-10-09] MEDS: Ipratropium/Albuterol Neb 3 ML IH SCH ×6 (04:01→23:15)
[2020-10-09] MEDS: *HR* Heparin 5,000 UNIT/ML VIAL SQ SCH ×2 (05:11→16:12)
[2020-10-09] MEDS: Budesonide/Formoterol 160/4.5 1 PUFF INH IH SCH ×3 (07:25→19:43)
[2020-10-09] MEDS: Azithromycin 250 MG TABLET PO SCH (07:48)
[2020-10-09] MEDS: methylPREDNISolone 125 MG/2 ML VIAL IVP SCH ×3 (07:48→23:50)
[2020-10-10] MEDS: Ipratropium/Albuterol Neb 3 ML IH SCH ×6 (03:58→23:25)
[2020-10-10] MEDS: *HR* Heparin 5,000 UNIT/ML VIAL SQ SCH ×2 (05:37→16:35)
[2020-10-10] MEDS: Budesonide/Formoterol 160/4.5 1 PUFF INH IH SCH ×2 (06:58→19:56)
[2020-10-10] MEDS: Azithromycin 250 MG TABLET PO SCH (09:02)
[2020-10-10] MEDS: methylPREDNISolone 125 MG/2 ML VIAL IVP SCH ×2 (09:03→16:35)
[2020-10-11] MEDS: methylPREDNISolone 125 MG/2 ML VIAL IVP SCH (00:19)
[2020-10-11 01:12] LABS: Hematocrit 51.7 % (37.5-50.1); Hemoglobin 16.7 g/dL (12.9-16.9); Mean Corpuscular HGB Conc 32.3 g/dL (31.6-35.5); Mean Corpuscular Hemoglobin 31.2 pg (28.0-33.3); Mean Corpuscular Volume 96.5 fL (83.0-100.0); Mean Platelet Volume 9.2 fL (9.4-12.4); Platelet Count 249 K/mcL (140-400); Red Blood Count 5.36 M/mcL (4.19-5.50); Red Cell Distribution Width 13.4 % (11.5-14.5)
[2020-10-11 01:31] LABS: BUN/Creatinine Ratio 33 (6-26); Blood Urea Nitrogen 30 mg/dL (8-23); Calcium 9.2 mg/dL (8.6-10.3); Carbon Dioxide 30 mEq/L (23-29); Chloride 99 mEq/L (98-107); Glucose 152 mg/dL (70-105); Osmolality,Calculated 291 (280-300); Potassium 4.7 mEq/L (3.5-5.1); Sodium 136 mEq/L (136-145); eGFR For African Americans > 60 (> 60); eGFR For Non-African Americans > 60 (> 60)
[2020-10-11] MEDS: Ipratropium/Albuterol Neb 3 ML IH SCH ×6 (04:04→23:53)
[2020-10-11] MEDS: *HR* Heparin 5,000 UNIT/ML VIAL SQ SCH ×2 (05:28→16:58)
[2020-10-11] MEDS: Budesonide/Formoterol 160/4.5 1 PUFF INH IH SCH ×2 (07:17→19:50)
[2020-10-11] MEDS: Azithromycin 250 MG TABLET PO SCH (08:09)
[2020-10-11] MEDS ORDERED: methylPREDNISolone 125 MG/2 ML VIAL IVP SCH (09:00)
[2020-10-12 01:58] LABS: Basophils % 0.2 %; Hematocrit 47.7 % (37.5-50.1); Hemoglobin 15.4 g/dL (12.9-16.9); Immature Granulocytes % 0.8 % (0-4); Lymphocytes # 1.7 K/mcL (0.6-4.6); Lymphocytes % 10.1 %; Mean Corpuscular HGB Conc 32.3 g/dL (31.6-35.5); Mean Corpuscular Hemoglobin 30.9 pg (28.0-33.3); Mean Corpuscular Volume 95.6 fL (83.0-100.0); Monocytes # 1.5 K/mcL (0.0-1.3); Monocytes % 8.9 %; Neutrophils # 13.2 K/mcL (1.6-8.9); Platelet Count 257 K/mcL (140-400); Red Blood Count 4.99 M/mcL (4.19-5.50); Red Cell Distribution Width 13.3 % (11.5-14.5); White Blood Count 16.5 K/mcL (4.3-11.1)
[2020-10-12 02:16] LABS: Alanine Aminotransferase 40 Units/L (7-52); Albumin 4.1 g/dL (3.5-5.7); Albumin/Globulin Ratio 1.7 (1.1-2.2); Alkaline Phosphatase 57 Units/L (34-104); Aspartate Amino Transferase 35 Units/L (13-39); BUN/Creatinine Ratio 34 (6-26); Bilirubin,Total 0.8 mg/dL (0.3-1.0); Blood Urea Nitrogen 26 mg/dL (8-23); Carbon Dioxide 30 mEq/L (23-29); Chloride 99 mEq/L (98-107); Globulin 2.4 g/dL (2.4-3.5); Glucose 121 mg/dL (70-105); Osmolality,Calculated 288 (280-300); Potassium 4.8 mEq/L (3.5-5.1); Sodium 136 mEq/L (136-145); Total Protein 6.5 g/dL (6.4-8.9); eGFR For African Americans > 60 (> 60); eGFR For Non-African Americans > 60 (> 60)
[2020-10-12] MEDS: Ipratropium/Albuterol Neb 3 ML IH SCH ×5 (03:46→19:51)
[2020-10-12] MEDS: *HR* Heparin 5,000 UNIT/ML VIAL SQ SCH ×2 (05:20→17:02)
[2020-10-12] MEDS: Budesonide/Formoterol 160/4.5 1 PUFF INH IH SCH ×2 (07:28→19:52)
[2020-10-12] MEDS: Azithromycin 250 MG TABLET PO SCH (08:31)
[2020-10-12] MEDS ORDERED: MethylPREDNISolone 40 MG/ML VIAL IVP SCH (09:00)
[2020-10-12] MEDS: MethylPREDNISolone 40 MG/ML VIAL IVP SCH (20:01)
[2020-10-13] MEDS: Ipratropium/Albuterol Neb 3 ML IH SCH ×7 (00:31→23:26)
[2020-10-13] MEDS: *HR* Heparin 5,000 UNIT/ML VIAL SQ SCH ×2 (05:25→17:16)
[2020-10-13] MEDS: Budesonide/Formoterol 160/4.5 1 PUFF INH IH SCH ×2 (07:31→20:09)
[2020-10-13] MEDS: Azithromycin 250 MG TABLET PO SCH (08:15)
[2020-10-13] MEDS: MethylPREDNISolone 40 MG/ML VIAL IVP SCH ×2 (08:16→21:16)
[2020-10-14] MEDS: Ipratropium/Albuterol Neb 3 ML IH SCH ×5 (03:30→19:34)
[2020-10-14] MEDS: *HR* Heparin 5,000 UNIT/ML VIAL SQ SCH ×2 (05:18→17:52)
[2020-10-14] MEDS: Budesonide/Formoterol 160/4.5 1 PUFF INH IH SCH ×2 (07:45→19:34)
[2020-10-14] MEDS: MethylPREDNISolone 40 MG/ML VIAL IVP SCH ×2 (09:10→19:53)
[2020-10-15] MEDS: Ipratropium/Albuterol Neb 3 ML IH SCH ×5 (00:13→16:23)
[2020-10-15] MEDS: *HR* Heparin 5,000 UNIT/ML VIAL SQ SCH ×2 (05:18→18:07)
[2020-10-15] MEDS: Budesonide/Formoterol 160/4.5 1 PUFF INH IH SCH (07:39)
[2020-10-15] MEDS ORDERED: predniSONE 20 MG TABLET PO SCH (09:00)
[2020-10-15 16:21] VITALS: BP 107/77; PULSE 95; TEMP 98.2
[2020-10-15 16:25] VITALS: O2SAT 96
== END 2020-10-15 18:57 | disposition home or self-care (01) | DRG 193 ==
LOC: CDU → SUATTDRO 09:32 → 2ANU 18:14 → SUATTDRO 10-10 17:01
PROVIDERS: ADMIT Family Medicine; ATTEND Family Medicine